=== PATIENT | female | born 1930 | race Caucasian/White ===

== ENCOUNTER 2016-04-01 20:04 | Observation (INO) | payer MEDICARE, BC ==
[2016-04-01 20:28] LABS: Hematocrit 37 % (35-47); Hemoglobin 12.5 g/dl (12.0-16.0); Mean Corpuscular HGB Conc 34 g/dl (31-36); Mean Corpuscular Hemoglobin 32 pg (27-31); Mean Corpuscular Volume 94 fL (80-97); Mean Platelet Volume 8 um3 (7.4-10.4); Red Blood Count 3.95 10^6/ul (4.0-5.4); Red Cell Distribution Width 14 % (10.5-15); White Blood Count 7.6 10^3/ul (3.5-10.8)
--- NOTE | 2016-04-01 20:39 | RAD ---
INDICATION: Neurologic change. Code aldridge. COMPARISON: CT brain December 22, 2014 TECHNIQUE: Noncontrast axial source images were acquired from the skull base to the vertex. FINDINGS: Ventricles/sulci: The ventricles and cisterns are normal in size and configuration for age. Brain parenchyma: There is mild periventricular and subcortical white matter change compatible with chronic ischemia. Intracranial hemorrhage:None. Extra-axial spaces: There are no abnormal extra axial fluid collections. There is a calcified extra-axial mass in left frontoparietal region most consistent with a calcified meningioma appearing unchanged. Calvarium: There is no calvarial fracture or other calvarial abnormality. Scalp: There is no evidence of scalp or extracalvarial soft tissue abnormality. Paranasal sinuses/mastoid: The paranasal sinuses and mastoid air cells are clear. Other: None. IMPRESSION: No acute intracranial findings. Minor chronic marked thoracic ischemic change.. Incidental, calcified, left frontoparietal meningioma, unchanged. Findings called to ED at 2031 hours.
[2016-04-01 20:43] LABS: BUN/Creatinine Ratio 19.4 (8-20); Calcium 9.7 mg/dL (8.6-10.3); EGFR African American 50.8 (>60); EGFR Non-African American 39.5 (>60); Globulin 3.2 g/dL (2-4); Potassium 5.1 mmol/L (3.5-5.0); Total Bilirubin 0.3 mg/dL (0.2-1.0); Total Protein 7.2 g/dL (6.4-8.9)
[2016-04-01 20:44] LABS: Troponin I 0.03 ng/mL (<0.04)
--- NOTE | 2016-04-01 21:04 | RAD ---
INDICATION: CVA COMPARISON: None TECHNIQUE: An AP portable view obtained at 2045 hours is submitted. FINDINGS: Bones/Soft Tissues: There are no acute bony findings. Cardiomediastinal: The cardiomediastinal silhouette is normal. Lungs: There are no acute infiltrates. There is mild hyperinflation with chronic appearing interstitial change. Pleura: There are no pleural effusions. Other: None IMPRESSION: NO ACTIVE DISEASE.
--- NOTE | 2016-04-01 21:05 | ED ---
Brendon Wang Michael, scribed for Barrba Tao MD on 04/01/16 at 2028 . Neurological HPI - HPI Summary HPI Summary: 85 y/o female comes to the ED presenting with mild aphasia that started suddenly at 1900. The pt had trouble remembering names of family members per son. He asked her the names of her grandchildren and friends. The pt responded to each question after approximately one minute. 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 The pt denies VERGARA, neck pain, and SOB. The PMHx is significant for HTN. Mable Paula was called at 20:17. Ct neg pt improving Robert aware discussed case aphasia not noticeable. Kiana aware - History of Current Complaint Chief Complaint: EDNeurologicalDeficit Stated Complaint: POSS STROKE Time Seen by Provider: 04/01/16 20:18 Hx Obtained From: Patient, Family/Equity Research Analyst, Medical Records Onset/Duration: Sudden Onset, Started hours ago Timing: Constant Onset Severity: Mild Current Severity: Mild Pain Intensity: 0 Pain Scale Used: 0-10 Numeric Character: Confusion Syncope Context: Loss of Consciousness: No Aggravating: Nothing Alleviating: Nothing Associated Signs and Symptoms: Positive: Negative - SOB, Confusion. 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, Other Cardiovascular Problems/Disorders - HX TACHYCARDIA Respiratory History: Denies: Hx Asthma, Hx Chronic Obstructive Pulmonary Disease (COPD) GI History: Reports: Hx Irritable Bowel - POSSIBLE Denies: Hx Ulcer Musculoskeletal History: Reports: Hx Arthritis - HANDS Sensory History: Reports: Hx Cataracts - ARABELLA, Hx Contacts or Glasses - GLASSES, Hx Hearing Aid - LEFT EAR Opthamlomology History: Reports: Hx Cataracts - ARABELLA, Hx Contacts or Glasses - GLASSES - Cancer History Cancer Type, 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, [facility]. left EARS, stapectomy, [facility]. right ear, 1984, [facility]. 1985, right ear revision, [facility] Hx Anesthesia Reactions: No Infectious Disease History: No Infectious Disease History: Denies: Hx Clostridium Difficile, Hx Hepatitis, Hx Human Immunodeficiency Virus (HIV), Hx of Known/Suspected MRSA, Hx Shingles, Hx Tuberculosis, Hx Known/ Suspected VRE, Hx Known/Suspected VRSA, History Other Infectious Disease, Traveled Outside the in Last 30 Days - Family History Known Family History: Negative: Cardiac Disease, Hypertension, Diabetes - Social History Occupation: Retired Lives: With Family Alcohol Use: None Alcohol Amount: 1 per day Substance Use Type: Reports: None Smoking Status (MU): Never Smoked Tobacco Have You Smoked in the Last Year: No Review of Systems Negative: Fever Negative: Shortness Of Breath Positive: Other - no neck pain Neurological: Other - aphasia Negative: Headache All Other Systems Reviewed And Are Negative: Yes Physical Exam Triage Information Reviewed: Yes Vital Signs On Initial Exam: Initial Vitals Temp Pulse Resp BP Pulse Ox 97.7 F 62 12 186/70 98 04/01/16 20:13 04/01/16 20:13 04/01/16 20:13 04/01/16 20:13 04/01/16 20:13 Vital Signs Reviewed: Yes Appearance: Positive: Well-Appearing, No Pain Distress Skin: Positive: Warm, Skin Color Reflects Adequate Perfusion, Dry Eyes: Positive: EOMI, ANGELITA ENT: Positive: Pharynx normal, TMs normal Neck: Positive: Supple, Nontender Respiratory/Lung Sounds: Positive: Clear to Auscultation, Breath Sounds Present. Negative: Rales, Rhonchi, Wheezes Cardiovascular: Positive: RRR, Other - no gallops.. Negative: Murmur, Rub Abdomen Description: Positive: Nontender, Soft, Other: - no rebound. Negative: Distended, Guarding Bowel Sounds: Positive: Present Musculoskeletal: Positive: Strength/ROM Intact, Other - peripheral edema 2+ Neurological: Positive: Sensory/Motor Intact, Alert, Oriented to Person Place, Time, CN Intact II-III Psychiatric: Positive: Affect/Mood Appropriate Diagnostics - Vital Signs Vital Signs Temp Pulse Resp BP Pulse Ox 04/01/16 20:13 97.7 F 62 12 186/70 98 - Laboratory Lab Results: Lab Results 04/01/16 04/01/16 04/01/16 Range/Units 20:19 20:19 20:19 WBC 7.6 (3.5-10.8) 10^3/ul RBC 3.95 L (4.0-5.4) 10^6/ul Hgb 12.5 (12.0-16.0) g/dl Hct 37 (35-47) % MCV 94 (80-97) fL MCH 32 H (27-31) pg MCHC 34 (31-36) g/dl RDW 14 (10.5-15) % Plt Count 228 (150-450) 10^3/ul MPV 8 (7.4-10.4) um3 Neut % (Auto) 71.8 (38-83) % Lymph % (Auto) 16.7 L (25-47) % [place] % (Auto) 7.8 (1-9) % Eos % (Auto) 2.6 (0-6) % Baso % (Auto) 1.1 (0-2) % Absolute Neuts (auto) 5.4 (1.5-7.7) 10^3/ul Absolute Lymphs (auto) 1.3 (1.0-4.8) 10^3/ul Absolute Monos (auto) 0.6 (0-0.8) 10^3/ul Absolute Eos (auto) 0.2 (0-0.6) 10^3/ul Absolute Basos (auto) 0.1 (0-0.2) 10^3/ul Absolute Nucleated RBC 0 10^3/ul Nucleated RBC % 0 INR (Anticoag Therapy) 0.91 (0.89-1.11) APTT 31.5 (26.0-36.3) seconds Sodium 124 L (133-145) mmol/L Potassium 5.1 H (3.5-5.0) mmol/L Chloride 92 L (101-111) mmol/L Carbon Dioxide 26 (22-32) mmol/L Anion Gap 6 (2-11) mmol/L BUN 25 H (6-24) mg/dL Creatinine 1.29 H (0.51-0.95) mg/dL Est GFR ( Amer) 50.8 (>60) Est GFR (Non-Af Amer) 39.5 (>60) BUN/Creatinine Ratio 19.4 (8-20) Glucose 122 H (70-100) mg/dL Lactic Acid (0.5-2.0) mmol/L Calcium 9.7 (8.6-10.3) mg/dL Total Bilirubin 0.30 (0.2-1.0) mg/dL AST 36 (13-39) U/L ALT 26 (7-52) U/L Alkaline Phosphatase 93 (34-104) U/L Troponin I 0.03 (<0.04) ng/mL Total Protein 7.2 (6.4-8.9) g/dL Albumin 4.0 (3.2-5.2) g/dL Globulin 3.2 (2-4) g/dL Albumin/Globulin Ratio 1.3 (1-3) Triglycerides 150 mg/dL Cholesterol 199 mg/dL LDL Cholesterol 109 mg/dL HDL Cholesterol 60.0 mg/dL Blood Type Antibody Screen 04/01/16 04/01/16 Range/Units 20:19 20:19 WBC (3.5-10.8) 10^3/ul RBC (4.0-5.4) 10^6/ul Hgb (12.0-16.0) g/dl Hct (35-47) % MCV (80-97) fL MCH (27-31) pg MCHC (31-36) g/dl RDW (10.5-15) % Plt Count (150-450) 10^3/ul MPV (7.4-10.4) um3 Neut % (Auto) (38-83) % Lymph % (Auto) (25-47) % [place] % (Auto) (1-9) % Eos % (Auto) (0-6) % Baso % (Auto) (0-2) % Absolute Neuts (auto) (1.5-7.7) 10^3/ul Absolute Lymphs (auto) (1.0-4.8) 10^3/ul Absolute Monos (auto) (0-0.8) 10^3/ul Absolute Eos (auto) (0-0.6) 10^3/ul Absolute Basos (auto) (0-0.2) 10^3/ul Absolute Nucleated RBC 10^3/ul Nucleated RBC % INR (Anticoag Therapy) (0.89-1.11) APTT (26.0-36.3) seconds Sodium (133-145) mmol/L Potassium (3.5-5.0) mmol/L Chloride (101-111) mmol/L Carbon Dioxide (22-32) mmol/L Anion Gap (2-11) mmol/L BUN (6-24) mg/dL Creatinine (0.51-0.95) mg/dL Est GFR ( Amer) (>60) Est GFR (Non-Af Amer) (>60) BUN/Creatinine Ratio (8-20) Glucose (70-100) mg/dL Lactic Acid 1.2 (0.5-2.0) mmol/L Calcium (8.6-10.3) mg/dL Total Bilirubin (0.2-1.0) mg/dL AST (13-39) U/L ALT (7-52) U/L Alkaline Phosphatase (34-104) U/L Troponin I (<0.04) ng/mL Total Protein (6.4-8.9) g/dL Albumin (3.2-5.2) g/dL Globulin (2-4) g/dL Albumin/Globulin Ratio (1-3) Triglycerides mg/dL Cholesterol mg/dL LDL Cholesterol mg/dL HDL Cholesterol mg/dL Blood Type Pending Antibody Screen Pending Result Diagrams: 04/01/16 20:19 04/01/16 20:19 Lab Statement: Any lab studies that have been ordered have been reviewed, and results considered in the medical decision making process. - CT Brain CT CT Interpretation: Positive (See Comments) - No acute intracranial findings. Minor chronic marked thoracic ischemic change.. Incidental, calcified, left frontoparietal meningioma, unchanged. CT Interpretation Completed By: Radiologist - EKG EK EKG Rhythm: Sinus Rhythm ST Segment: Normal Ectopy: None NIH Scale - NIH Scale Level of Consciousness: Alert/Keenly Responsive Ask Patient the Month and His/Her Age: Both Correct Ask Pt to Open/Close Eyes and Molder Shoulder Pad/Release Non-Paretic Hand: Both Correctly Best Gaze (Only Horizontal Eye Movement): Normal Visual Field Testing: No Visual Loss Facial Paresis-Pt to Smile & Close Eyes or Grimace Symmetry: Normal/Symmetrical Motor Function - Right Arm: No Drift-Holds 10 Seconds Motor Function - Left Arm: No Drift-Holds 10 Seconds Motor Function - Right Leg: No Drift-Holds 10 Seconds Motor Function - Left Leg: No Drift-Holds 10 Seconds Limb Ataxia-Must be out of Proportion to Weakness Present: Absent Sensory (Use Pinprick to Test Arms/Legs/Trunk/Face): Normal Best Language (Describe Picture, Name Items): No Aphasia Dysarthria (Read Several Words): Normal Extinction and Inattention: No Abnormality Total Score: 0 Re-Evaluation - Re-Evaluation 1st Re-Evaluation Time: 20:59 Change: Unchanged Comment: dicussed with family that the pt will be admitted to the hospital for a mild stroke. Course/Dx - Diagnoses Provider Diagnoses: Expressive aphasia During the Visit The Following Alert/Code Occurred: Code Fan Discharge - Discharge Plan Condition: Stable Disposition: ADMITTED TO [facility] The documentation as recorded by the Brendon alexander Michael accurately reflects the service I personally performed and the decisions made by me, Barbra Tao MD.
[2016-04-01] MEDS ORDERED: Aspirin Low Dose CHEW TAB* 81 MG PO ONE (21:21)
[2016-04-01] MEDS ORDERED: Ondansetron INJ* 2 MG/ML VIAL IV PRN (22:53)
[2016-04-01] MEDS ORDERED: Acetaminophen TAB* 325 MG PO PRN (22:53)
[2016-04-01] MEDS ORDERED: traMADol TAB* 50 MG PO PRN (22:53)
[2016-04-01] MEDS ORDERED: Melatonin (NF) 3 MG TAB PO PRN (22:53)
[2016-04-01] MEDS ORDERED: NS 0.9% 1000 ML* 1,000 ML IV SCH (23:00)
[2016-04-01] MEDS ORDERED: Iodixanol* (CONTRAST) 320 MG/ML 100 ML SDV IV ONE (23:06)
--- NOTE | 2016-04-02 00:35 | CONS ---
CC: Dr. Tyrel Sosa NEUROLOGY CONSULT REPORT: DATE OF CONSULT: 04/01/16 PRIMARY CARE PHYSICIAN: Dr. Tyrel Sosa. REQUESTING PHYSICIANS: Dr. Bruno REASON FOR CONSULT: Possible TIA. HISTORY OF PRESENT ILLNESS: The patient is an 85-year-old right-handed female, who was in her usual state of health until about around 7 p.m. tonight getting ready to start dinner when her son noticed that she had some difficulty talking such as referring to her grandson as "the person who lives with you". She also was not able to tell the name of her immediately and took her about a minute to say that and also the middle name of her son when she was asked. She also was saying things that did not make complete sense per the son. The son then called one of his friends, who is a electrician sound, and eventually he was told that it would be best to bring her to the hospital. Before this episodes she was fine, helping preparing dinner with her son. The patient does not recognize that she had a problem, but says probably she recalls that she was not able to find some words. Otherwise, she did not have any diplopia or weakness or numbness in the arms and legs. She gradually improved. I was called about this patient around 9 p.m. and by the time I was at the bedside, it was about 9:20. PAST MEDICAL HISTORY: Diverticulosis; tachycardia (of unknown nature, probably on digoxin. Per her son, she had 24 hours monitoring in the past and had been considered for a Holter monitoring.). PAST SURGICAL HISTORY: Cataract surgery, Inguinal hernia repair in 1979. Gastrectomy, double diverticulum resected with pyloroplasty in 1968. HOME MEDICATIONS: Include: 1. Acidophilus probiotic. 2. [place] 3-6-9. 3. Multivitamin. 4. Laxatives. 5. Melatonin 3 mg at bedtime. 6. Meclizine 12.5 mg p.o. p.r.n. 7. Glucosamine. 8. Calcium. 9. Atenolol 50 mg in the morning and 25 mg at night. 10. Vitamin C. 11. She probably is also on Digoxin, but no clear information is available. ALLERGIES: To CODEINE, DOXYCYCLINE, EPINEPHRINE. FAMILY HISTORY: Brother had history of lung cancer and he was a smoker. Father had renal cell carcinoma. SOCIAL HISTORY: The patient never smoked. 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 She lives by herself. REVIEW OF SYSTEMS: Complete review of systems was performed and other than what mentioned above is negative. PHYSICAL EXAM: Temperature 97.7, pulse rate 62, respiratory rate 12, blood pressure 186/70. The patient is awake, alert, and oriented x3. Speech is fluent with no dysarthria. Naming is intact. Pupils are symmetric and reactive to light. Extraocular movements are intact. Visual pack are intact by confrontation. V1 to V3 is intact to light touch and pinprick. Right upper and right lower extremities have slightly decreased sensation to pinprick, but not to light touch. Motor strength is 5/5. There is no pronator drift. Finger -to-nose is intact bilaterally. Deep tendon reflexes are 2+ in the upper and lower extremities except Achilles, which are 1+ bilaterally and are symmetric. Babinski is absent bilaterally. NIHSS is 1 for mild sensory deficit in the right. DIAGNOSTIC STUDIES/LAB DATA: WBC 7.6, hemoglobin 12.5, hematocrit 37, platelets 228. INR 0.91. Sodium 124, potassium 5.1, chloride 92, BUN 25, creatinine 1.29. Imaging: Brain CT: No acute intracranial findings. There is an incidental left frontoparietal meningioma, unchanged. ASSESSMENT AND PLAN: An 85-year-old female with sudden onset of what seems to be mild aphasia, which has improved, currently has only right-sided decreased sensation. NIH Stroke Scale at this time is only 1. She is not a candidate for thrombolytic therapy due to low NIH Stroke Scale. She needs a stroke workup including admission for telemonitoring, MRI of the brain to see if there is any small stroke present, CT angiogram of the head and neck and echocardiogram of the heart. Continue on aspirin and statins. [id number]/[facility] #: [id number] [facility] HOSPITALKenia
[2016-04-02 00:40] LABS: Urine Bilirubin Negative (Negative); Urine Glucose Negative (Negative); Urine Nitrite Negative (Negative)
--- NOTE | 2016-04-02 01:57 | HP ---
H&P (Free Text) History and Physical: PCP: Barbara Sosa MD Date/Time of Evaluation: 04/01/2016 2245 CC: difficulty finding words HPI: Mrs Carroll is an 87YO female HX HTN who was eating supper with her son and grandson around 1900 when suddenly they noticed she wasn't making as much sense. Her son began questioning her and found she was unable to state his name or that of other family members they had talked of earlier in the day. There was no note of facial asymmetry, focal W/N/T, or other issues. He talked her into coming for evaluation. CT brain WO is negative. Zuly Jones MD neurology has evaluated and agrees with the diagnosis of CVA although as her speech has normalized and the only deficit is some mild decreased sensation on the R she is not a tPA candidate. Will observe for CVA evaluation. PMedHx HTN palpitations Allergies Codeine Adverse Reaction (Mild, Verified 04/01/16 22:54) Nausea Doxycycline Adverse Reaction (Mild, Verified 04/01/16 22:54) Nausea Epinephrine Adverse Reaction (Mild, Verified 04/01/16 22:54) Palpitations Ambulatory Orders Patient/son uncertain of medications, will need reconciling in AM via Rx ([facility]). PSurgHx OU cataract extractions gastric diverticulum surgery AU stapectomy & prostheses L inguinal hernia repair SocHx: no tobacco, alcohol, or recreational drugs; lives alone; DNR/I code status FamHx: Father passed of renal cell CA. Mother passed of CHF. ROS: as above, otherwise reviewed and all were negative Constitutional: NAD, normally developed, well-nourished elderly white female vitals: Vital Signs Temp 36.5 C 04/01/16 20:13 Pulse 58 04/02/16 00:20 Resp 10 04/02/16 00:20 BP 171/58 04/02/16 00:20 Pulse Ox 97 04/02/16 00:20 Intake & Output 04/01/16 04/01/16 04/02/16 11:59 23:59 11:59 Weight 52.163 kg HEENM: atraumatic; sclera/conjunctiva: non-icteric/clear; hearing: mildly decreased; oropharynx: clear, mucosa moist Neck: soft tissue: non-tender; thyroid: normal Pulmonary: clear to auscultation bilaterally, good aeration, no accessory muscle use CV: RR/RR, normal S1S2, no carotid bruit, no jugular venous distention, 2+ B DP/ PT, no edema Abdominal: soft, non-distended, non-tender, no rebound/guarding/rigidity, normoactive bowel sounds, no hepatosplenomegaly or masses, no costovertebral angle tenderness Musculoskeletal: general: grossly intact; gait: stable Integumental: normal appearance and texture of exposed skin; 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 L rico is clean & dry Neurological deferred to neurology Psychiatric orientation: AA&O to PPS affect: calm mood: pleasant eye contact: good content: reliable memory: absent regarding event responses: timely insight: fair Testing: Lab Results 04/01/16 04/01/16 04/01/16 Range/Units 20:19 20:19 20:19 WBC 7.6 (3.5-10.8) 10^3/ul RBC 3.95 L (4.0-5.4) 10^6/ul Hgb 12.5 (12.0-16.0) g/dl Hct 37 (35-47) % MCV 94 (80-97) fL MCH 32 H (27-31) pg MCHC 34 (31-36) g/dl RDW 14 (10.5-15) % Plt Count 228 (150-450) 10^3/ul MPV 8 (7.4-10.4) um3 Neut % (Auto) 71.8 (38-83) % Lymph % (Auto) 16.7 L (25-47) % [place] % (Auto) 7.8 (1-9) % Eos % (Auto) 2.6 (0-6) % Baso % (Auto) 1.1 (0-2) % Absolute Neuts (auto) 5.4 (1.5-7.7) 10^3/ul Absolute Lymphs (auto) 1.3 (1.0-4.8) 10^3/ul Absolute Monos (auto) 0.6 (0-0.8) 10^3/ul Absolute Eos (auto) 0.2 (0-0.6) 10^3/ul Absolute Basos (auto) 0.1 (0-0.2) 10^3/ul Absolute Nucleated RBC 0 10^3/ul Nucleated RBC % 0 INR (Anticoag Therapy) 0.91 (0.89-1.11) APTT 31.5 (26.0-36.3) seconds Sodium 124 L (133-145) mmol/L Potassium 5.1 H (3.5-5.0) mmol/L Chloride 92 L (101-111) mmol/L Carbon Dioxide 26 (22-32) mmol/L Anion Gap 6 (2-11) mmol/L BUN 25 H (6-24) mg/dL Creatinine 1.29 H (0.51-0.95) mg/dL Est GFR ( Amer) 50.8 (>60) Est GFR (Non-Af Amer) 39.5 (>60) BUN/Creatinine Ratio 19.4 (8-20) Glucose 122 H (70-100) mg/dL Lactic Acid (0.5-2.0) mmol/L Calcium 9.7 (8.6-10.3) mg/dL Total Bilirubin 0.30 (0.2-1.0) mg/dL AST 36 (13-39) U/L ALT 26 (7-52) U/L Alkaline Phosphatase 93 (34-104) U/L Troponin I 0.03 (<0.04) ng/mL Total Protein 7.2 (6.4-8.9) g/dL Albumin 4.0 (3.2-5.2) g/dL Globulin 3.2 (2-4) g/dL Albumin/Globulin Ratio 1.3 (1-3) Triglycerides 150 mg/dL Cholesterol 199 mg/dL LDL Cholesterol 109 mg/dL HDL Cholesterol 60.0 mg/dL Urine Color Urine Appearance Urine pH (5-9) Ur Specific [place] (1.010-1.030) Urine Protein (Negative) Urine Ketones (Negative) Urine Blood (Negative) Urine Nitrate (Negative) Urine Bilirubin (Negative) Urine Urobilinogen (Negative) Ur Leukocyte Esterase (Negative) Urine Glucose (Negative) Urine Ascorbic Acid (Negative) Blood Type Antibody Screen 04/01/16 04/01/16 04/02/16 Range/Units 20:19 20:19 00:29 WBC (3.5-10.8) 10^3/ul RBC (4.0-5.4) 10^6/ul Hgb (12.0-16.0) g/dl Hct (35-47) % MCV (80-97) fL MCH (27-31) pg MCHC (31-36) g/dl RDW (10.5-15) % Plt Count (150-450) 10^3/ul MPV (7.4-10.4) um3 Neut % (Auto) (38-83) % Lymph % (Auto) (25-47) % [place] % (Auto) (1-9) % Eos % (Auto) (0-6) % Baso % (Auto) (0-2) % Absolute Neuts (auto) (1.5-7.7) 10^3/ul Absolute Lymphs (auto) (1.0-4.8) 10^3/ul Absolute Monos (auto) (0-0.8) 10^3/ul Absolute Eos (auto) (0-0.6) 10^3/ul Absolute Basos (auto) (0-0.2) 10^3/ul Absolute Nucleated RBC 10^3/ul Nucleated RBC % INR (Anticoag Therapy) (0.89-1.11) APTT (26.0-36.3) seconds Sodium (133-145) mmol/L Potassium (3.5-5.0) mmol/L Chloride (101-111) mmol/L Carbon Dioxide (22-32) mmol/L Anion Gap (2-11) mmol/L BUN (6-24) mg/dL Creatinine (0.51-0.95) mg/dL Est GFR ( Amer) (>60) Est GFR (Non-Af Amer) (>60) BUN/Creatinine Ratio (8-20) Glucose (70-100) mg/dL Lactic Acid 1.2 (0.5-2.0) mmol/L Calcium (8.6-10.3) mg/dL Total Bilirubin (0.2-1.0) mg/dL AST (13-39) U/L ALT (7-52) U/L Alkaline Phosphatase (34-104) U/L Troponin I (<0.04) ng/mL Total Protein (6.4-8.9) g/dL Albumin (3.2-5.2) g/dL Globulin (2-4) g/dL Albumin/Globulin Ratio (1-3) Triglycerides mg/dL Cholesterol mg/dL LDL Cholesterol mg/dL HDL Cholesterol mg/dL Urine Color Straw Urine Appearance Clear Urine pH 7.0 (5-9) Ur Specific [place] 1.014 (1.010-1.030) Urine Protein Negative (Negative) Urine Ketones Negative (Negative) Urine Blood Negative (Negative) Urine Nitrate Negative (Negative) Urine Bilirubin Negative (Negative) Urine Urobilinogen Negative (Negative) Ur Leukocyte Esterase Negative (Negative) Urine Glucose Negative (Negative) Urine Ascorbic Acid * H (Negative) Blood Type A Negative Antibody Screen Negative ECG, personally reviewed: NSR rate 61, no ischemia CXR, personally reviewed: IMPRESSION: NO ACTIVE DISEASE. CT brain WO, personally reviewed: IMPRESSION: No acute intracranial findings. Minor chronic marked thoracic ischemic change. Incidental, calcified, left frontoparietal meningioma, unchanged. Impression: 85F presenting with symptoms consistent with a L cortical CVA/TIA DIAGNOSIS & PLAN Primary L cortical CVA/TIA : Zuly Jones MD neurology's consult appreciated, will follow : CTA head/neck tonight : MRI brain WO in AM (discussed with Dr Givens, radiology, who approved) : aspirin : neurochecks : supplemental oxygen : lipid profile completed : PT/OT evaluations : supportive care Secondary HTN : review medications once reconciled Admission Rational: CDU observation for CVA work up DVTp: heparin SQ Code Status: DNR/I, no pressors HCP: children
[2016-04-02] MEDS: Heparin VIAL(*) 5000 UNITS/ML VIAL (FIVE THOUSAND) SUBCUT SCH ×2 (05:52→15:22)
[2016-04-02] MEDS ORDERED: Omeprazole CAP* 20 MG PO SCH (06:00)
--- NOTE | 2016-04-02 06:19 | RAD ---
INDICATION: 85-year-old with TIA/CVA workup COMPARISON: CT brain same date TECHNIQUE: Axial source images were acquired with coronal and sagittal reconstructions. CT angiographic technique was utilized with injection of 80 mL Visipaque 320. FINDINGS: Aortic arch: There are no significant CT angiogram abnormalities of the arch or the great vessels arising from the arch. Right carotid: The internal carotid artery, carotid bifurcation, extracranial portions of the internal carotid artery, carotid artery at the skull base, carotid siphon, and carotid termination are widely patent. Left carotid:The internal carotid artery, carotid bifurcation, extracranial portions of the internal carotid artery, carotid artery at the skull base, carotid siphon, and carotid termination are widely patent. Right middle and anterior cerebral arteries: There are no significant CT angiographic abnormalities of the middle or anterior cerebral arteries. Left middle and anterior cerebral arteries: There are no CT significant angiographic abnormalities of the middle or anterior cerebral arteries Right vertebral: The CT angiographic appearance of the vertebral artery is normal. Left vertebral: The CT angiographic appearance of the vertebral artery is normal. Basilar artery: The basilar artery and basilar tip appear patent. Posterior cerebral arteries: The distal distribution of the right and left posterior cerebral arteries is normal. [place]: The CT angiographic appearance of the [place] is normal. Source images show no evidence of worrisome mass or adenopathy within the neck. The right thyroid lobe is mildly enlarged and appears heterogeneous similar to earlier CT imaging. There are no focal parenchymal abnormalities or abnormal areas of enhancement. IMPRESSION: NO CT EVIDENCE OF ANEURYSM, SIGNIFICANT STENOSIS, OR BRANCH OCCLUSION. CPT II Codes: 3100F PQRS
[2016-04-02 08:09] LABS: Calcium 9.4 mg/dL (8.6-10.3); EGFR African American 64.4 (>60); EGFR Non-African American 50.1 (>60); Potassium 4.5 mmol/L (3.5-5.0)
[2016-04-02] MEDS ORDERED: Aspirin EC Low Dose* 81 MG TAB.EC PO SCH (09:00)
[2016-04-02] MEDS ORDERED: Docusate CAP* 100 MG PO SCH (09:00)
--- NOTE | 2016-04-02 11:44 | RAD ---
INDICATION: TIA workup in a 85-year-old. COMPARISON: CT brain April 01, 2016 several: CTA head and neck April 01, 2016 TECHNIQUE: sagittal T1 FLAIR, axial diffusion, axial T1 FLAIR, axial T2, axial T2 FLAIR, and SWI images were acquired. FINDINGS: Craniocervical junction: The craniocervical junction appears normal. Ventricles/sulci: There is cortical atrophy with compensatory dilatation of the CSF spaces. Brain parenchyma: There are extensive, bilateral T2-weighted hyperintensities in the periventricular and subcortical white matter consistent with chronic microvascular ischemia. There is also mild increased signal in the midbrain consistent with microvascular ischemia. Intracranial hemorrhage: There is no intracranial hemorrhage. Extra-axial spaces: Small (9 mm), calcified left frontal meningioma without associated mass effect. There are no other extra-axial fluid collections or masses. Orbits: There are no MR abnormalities of the orbital structures. Paranasal sinuses/mastoid: The paranasal sinuses are clear. The mastoid air cells are well aerated.. Vascular: No abnormalities are seen. Other: None IMPRESSION: CORTICAL INVOLUTIONAL CHANGES WITH EXTENSIVE PERIVENTRICULAR AND SUBCORTICAL WHITE MATTER T2-WEIGHTED HYPERINTENSITIES COMPATIBLE WITH CHRONIC MICROVASCULAR ISCHEMIA.
--- NOTE | 2016-04-02 12:45 | PN ---
Progress Note - Progress Note SOAP: Neurology progress note Date of service: 04/02/16 Subjective: The patient had no acute events overnight. Feels good this morning. She is not having any new symptoms. MRI brain completed. Objective: Vital Signs Temp Pulse Resp BP Pulse Ox 97.4 F 53 16 128/54 100 04/02/16 11:39 04/02/16 11:39 04/02/16 11:47 04/02/16 11:47 04/02/16 11:39 Laboratory Results - last 24 hr 04/01/16 04/01/16 04/01/16 20:19 20:19 20:19 WBC 7.6 RBC 3.95 L Hgb 12.5 Hct 37 MCV 94 MCH 32 H MCHC 34 RDW 14 Plt Count 228 MPV 8 Neut % (Auto) 71.8 Lymph % (Auto) 16.7 L [place] % (Auto) 7.8 Eos % (Auto) 2.6 Baso % (Auto) 1.1 Absolute Neuts (auto) 5.4 Absolute Lymphs (auto) 1.3 Absolute Monos (auto) 0.6 Absolute Eos (auto) 0.2 Absolute Basos (auto) 0.1 Absolute Nucleated RBC 0 Nucleated RBC % 0 INR (Anticoag Therapy) 0.91 APTT 31.5 Sodium 124 L Potassium 5.1 H Chloride 92 L Carbon Dioxide 26 Anion Gap 6 BUN 25 H Creatinine 1.29 H Est GFR ( Amer) 50.8 Est GFR (Non-Af Amer) 39.5 BUN/Creatinine Ratio 19.4 Glucose 122 H Lactic Acid Calcium 9.7 Total Bilirubin 0.30 AST 36 ALT 26 Alkaline Phosphatase 93 Troponin I 0.03 Total Protein 7.2 Albumin 4.0 Globulin 3.2 Albumin/Globulin Ratio 1.3 Triglycerides 150 Cholesterol 199 LDL Cholesterol 109 HDL Cholesterol 60.0 Urine Color Urine Appearance Urine pH Ur Specific [place] Urine Protein Urine Ketones Urine Blood Urine Nitrate Urine Bilirubin Urine Urobilinogen Ur Leukocyte Esterase Urine Glucose Urine Ascorbic Acid Blood Type Antibody Screen 04/01/16 04/01/16 04/02/16 20:19 20:19 00:29 WBC RBC Hgb Hct MCV MCH MCHC RDW Plt Count MPV Neut % (Auto) Lymph % (Auto) [place] % (Auto) Eos % (Auto) Baso % (Auto) Absolute Neuts (auto) Absolute Lymphs (auto) Absolute Monos (auto) Absolute Eos (auto) Absolute Basos (auto) Absolute Nucleated RBC Nucleated RBC % INR (Anticoag Therapy) APTT Sodium Potassium Chloride Carbon Dioxide Anion Gap BUN Creatinine Est GFR ( Amer) Est GFR (Non-Af Amer) BUN/Creatinine Ratio Glucose Lactic Acid 1.2 Calcium Total Bilirubin AST ALT Alkaline Phosphatase Troponin I Total Protein Albumin Globulin Albumin/Globulin Ratio Triglycerides Cholesterol LDL Cholesterol HDL Cholesterol Urine Color Straw Urine Appearance Clear Urine pH 7.0 Ur Specific [place] 1.014 Urine Protein Negative Urine Ketones Negative Urine Blood Negative Urine Nitrate Negative Urine Bilirubin Negative Urine Urobilinogen Negative Ur Leukocyte Esterase Negative Urine Glucose Negative Urine Ascorbic Acid * H Blood Type A Negative Antibody Screen Negative 04/02/16 06:06 WBC RBC Hgb Hct MCV MCH MCHC RDW Plt Count MPV Neut % (Auto) Lymph % (Auto) [place] % (Auto) Eos % (Auto) Baso % (Auto) Absolute Neuts (auto) Absolute Lymphs (auto) Absolute Monos (auto) Absolute Eos (auto) Absolute Basos (auto) Absolute Nucleated RBC Nucleated RBC % INR (Anticoag Therapy) APTT Sodium 129 L Potassium 4.5 Chloride 97 L Carbon Dioxide 25 Anion Gap 7 BUN 22 Creatinine 1.05 H Est GFR ( Amer) 64.4 Est GFR (Non-Af Amer) 50.1 BUN/Creatinine Ratio 21.0 H Glucose 94 Lactic Acid Calcium 9.4 Total Bilirubin AST ALT Alkaline Phosphatase Troponin I Total Protein Albumin Globulin Albumin/Globulin Ratio Triglycerides Cholesterol LDL Cholesterol HDL Cholesterol Urine Color Urine Appearance Urine pH Ur Specific [place] Urine Protein Urine Ketones Urine Blood Urine Nitrate Urine Bilirubin Urine Urobilinogen Ur Leukocyte Esterase Urine Glucose Urine Ascorbic Acid Blood Type Antibody Screen Current Medications Acetaminophen (Tylenol Tab*) 650 mg PO Q6H PRN PRN Reason: FEVER/PAIN Aspirin (Aspirin Ec Low Dose*) 81 mg PO DAILY [facility] Last Admin: 04/02/16 09:41 Dose: 81 mg Docusate Sodium (Colace Cap*) 200 mg PO BID [facility] Last Admin: 04/02/16 09:41 Dose: 200 mg Heparin Sodium (Porcine) (Heparin Vial(*)) 5,000 units SUBCUT Q8HR [facility] Last Admin: 04/02/16 05:52 Dose: 5,000 units Sodium Chloride (Ns 0.9% 1000 Ml*) 1,000 mls @ 75 mls/hr IV PER RATE [facility] Last Admin: 04/02/16 10:35 Dose: 75 mls/hr Melatonin (Melatonin (Nf)) 3 mg PO BEDTIME PRN; Protocol PRN Reason: Sleep Omeprazole (Prilosec Cap*) 20 mg PO DAILY@0600 [facility] Last Admin: 04/02/16 05:51 Dose: 20 mg Ondansetron HCl (Zofran Inj*) 4 mg IV Q6H PRN PRN Reason: NAUSEA Tramadol HCl (Ultram*) 50 mg PO Q12H PRN PRN Reason: PAIN On neurological exam, the patient is awake, alert and oriented x 3. Pupils symmetric and reactive to light. Face symmetric. Tongue in midline. V1-3 intact to light touch and pinprick. Strength 5/5. Sensation intact to light touch and pinprick in the upper and lower extremities, bilaterally (improvement compared to last night). MRI brain: CORTICAL INVOLUTIONAL CHANGES WITH EXTENSIVE PERIVENTRICULAR AND SUBCORTICAL WHITE MATTER T2-WEIGHTED HYPERINTENSITIES COMPATIBLE WITH CHRONIC MICROVASCULAR ISCHEMIA. CTA head and neck: NO CT EVIDENCE OF ANEURYSM, SIGNIFICANT STENOSIS, OR BRANCH OCCLUSION. Assessment and Plan: 85 year-old female with sudden onset of mild aphasia and right sided numbness ( on exam), was admitted for TIA workup. The symptoms have resolved now including the numbness of the right side. NIHSS is 0 at this time. MRI is negative for acute stroke. Echo pending. Continue antiplatelets. Would increase the dose to 325 mg daily. If TTE is negative, needs following up with her security services manager for possible Holter monitoring.
--- NOTE | 2016-04-02 14:59 | ECHO ---
Patient: ALONZO BROWN Rec#: [id number] : 1930 Date: 04/02/2016 Age: 85y Height: 157.5 cm / 62.0 in Weight: 52.2 kg / 115.0 lbs Sex: F BSA: 1.5 Room#: [facility] Admit Date#: 04/01/2016 Type: Inpatient Referring: Andres Bruno MD Reading: Ana Rudolph MD Service Operator: Chyna Hurtado RN RDCS CC: Tyrel Sosa MD CC: Gladis Carreon MD Transthoracic Echocardiogram Indication: TIA/CVA BP: 143/57 Rhythm: Bradycardia Findings History: HTN, palpitations Technical Comments: The study quality is fair. Completed at 1415. Left Ventricle: The left ventricular chamber size is normal. Mild concentric left ventricular hypertrophy is observed. Global left ventricular wall motion and contractility are within normal limits. The left ventricle appears hyperdynamic. The estimated ejection fraction is 60-65%. Abnormal left ventricular diastolic filling is observed, consistent with impaired relaxation. Left Atrium: The left atrium is mild to moderately dilated. Right Ventricle: The right ventricle is slightly dilated. The right ventricular global systolic function is normal. Right Atrium: The right atrium is mildly dilated. Aortic Valve: The aortic valve is trileaflet. The aortic valve leaflets are mildly thickened. There is mild to moderate aortic regurgitation. There is no evidence of aortic stenosis. The measured aortic regurgitation pressure half-time is 473 msec. Mitral Valve: There is mitral annular calcification. The mitral valve leaflets are mildly thickened. There is mild to moderate mitral regurgitation. There is no evidence of mitral stenosis. Tricuspid Valve: The tricuspid valve leaflets are normal. There is mild tricuspid regurgitation. There is evidence of mild pulmonary hypertension. There is no tricuspid stenosis. Pulmonic Valve: The pulmonic valve appears normal. There is trace to mild pulmonic regurgitation. There is no pulmonic stenosis. Pericardium: There is no significant pericardial effusion. A pericardial fat pad is visualized. Aorta: There is no dilatation of the ascending aorta. There is mild dilatation of the aortic arch. The aortic root is normal in size. Pulmonary Artery: The main pulmonary artery appears normal. Venous: The inferior vena cava appears normal in size. There is a greater than 50% respiratory change in the inferior vena cava dimension. Conclusions Mild concentric left ventricular hypertrophy is observed. Global left ventricular wall motion and contractility are within normal limits. Left ventricular ejection fraction 65%. Abnormal left ventricular diastolic filling is observed, consistent with impaired relaxation. Normal right ventricular systolic function. The aortic valve leaflets are mildly thickened. There is mild to moderate aortic regurgitation: P1/2 473 ms, no reversal of flow in the descending aorta. There is mild to moderate mitral regurgitation. There is mild tricuspid regurgitation. There is evidence of mild pulmonary hypertension: 37 mmHg. There is mild dilatation of the aortic arch. No cardioembolic source identified. Consider follow up bubble study if clinically indicated. Compared with prior echo of 02/02/16, no decline in ventricular function, AI was previously mild, MR previously mild, PA pressure not significantly changed, previously 41 mmHg. Measurements Name Value Normal Range RVIDd (AP) 2D 3.3 cm (0.9 - 2.6) RVDdMajor (2D) 3.2 cm (2.2 - 4.4) RAd ISD 4CH 5.1 cm (3.4 - 4.9) RA (A4C)W 3.9 cm (2.9 - 4.6) IVSd (2D) 1.1 cm (0.6 - 1) LVPWd (2D) 1.1 cm (0.6 - 1) LVIDd (2D) 4.1 cm (3.6 - 5.4) LVIDs (2D) 2.5 cm - LV FS (2D) 39 % (25 - 45) Aortic Annulus 1.7 cm (1.4 - 2.6) Ao root diameter (2D) 2.2 cm (2.1 - 3.5) Ascending Ao 2.9 cm (2.1 - 3.4) Aortic arch 3.6 cm (1.8 - 3.4) LA dimension (AP) 2D 3.4 cm (2.3 - 3.8) LAd ISD 4CH 4.9 cm (2.9 - 5.3) LA ISD 4CH W 4.2 cm (2.5 - 4.5) Name Value Normal Range LA ESV SP 4CH (A/L) 57 ml - LA ESV SP 2CH (A/L) 99 ml - LA ESV BP (A/L) 78 ml - LA ESV BP (A/L) index 52 ml/m2 - LA ESV SP 4CH (MOD) 54 ml - LA ESV SP 2CH (MOD) 98 ml - Name Value Normal Range MV E-wave Vmax 0.55 m/sec - MV deceleration time 373 msec - MV A-wave Vmax 0.82 m/sec - MV E:A ratio 0.7 ratio - LV septal e' Vmax 0.06 m/sec - LV lateral e' Vmax 0.06 m/sec - LV E:e' septal ratio 9.2 ratio - LV E:e' lateral ratio 9.2 ratio - Name Value Normal Range AV Vmax 1.6 m/sec - AV VTI 44 cm - AV peak gradient 9.6 mmHg - AV mean gradient 5.5 mmHg - LVOT Vmax 1.2 m/sec - LVOT VTI 31.4 cm - AR PHT 473 msec - VIVIAN Vmax 0.53 m/sec - Name Value Normal Range TR Vmax 2.9 m/sec - TR peak gradient 34 mmHg - RAP 3 mmHg - RVSP 37 mmHg - IVC diameter 0.9 cm - Name Value Normal Range PV Vmax 0.77 m/sec -
[2016-04-02 16:19] VITALS: BP 105/46
--- NOTE | 2016-04-02 23:10 | DS ---
DISCHARGE SUMMARY: DATE OF ADMISSION: 04/01/16 DATE OF DISCHARGE: 04/02/16 PRIMARY DIAGNOSIS: Transient ischemic attack with expressive aphasia SECONDARY DIAGNOSES: 1. Hypertension. 2. History of palpitations and supraventricular ectopy. 3. Carpal tunnel syndrome. 4. Lvvv-ek-xrrvaybg aortic regurgitation. 5. Ihkr-vi-gsacnguj mitral regurgitation. MEDICATIONS ON DISCHARGE: 1. Aspirin 325 mg p.o. every day. 2. Atenolol 50 mg p.o. q.a.m. and 25 mg p.o. q.p.m. 3. Meloxicam 7.5 mg p.o. b.i.d. p.r.n. for carpal tunnel. 4. Vitamin C. 5. Melatonin. 6. Fiber laxative. 7. Probiotics. 8. Magnesium with vitamin D. HOSPITAL COURSE: The patient was admitted to the emergency department by Dr. Bruno with an episode word-finding difficulty that began during dinner. There was no other associated weakness or facial asymmetry or visual changes. She was seen in the ER as a code aldridge had a rapid head CT that was negative. She was evaluated by Dr. Jones, Neurology who felt that she was not a candidate for TPA as the problem was resolving. The patient was admitted overnight for observation on telemetry and had no significant arrhythmias. The transthoracic echocardiogram showed ejection fraction in the 60% range with mild -to-moderate AI, hwil-cn-wjrdeacm MR and impaired relaxation in the diastolic phase. She also had a CT angiogram of the head and neck which showed no significant carotid or intracranial stenosis and she had an MRI of the brain that showed no infarct and just cortical involutional changes consistent with her age. Laboratory tests showed sodium 124 on admission and 129 on discharge. Creatinine came down from 1.29 to 1.05. Electrolytes otherwise normal. Her troponin was 0.03. Her cholesterol was 199 with 60 HDL and 109 LDL. Urinalysis was negative. I discussed the case with Dr. Jones on the morning of discharge. The patient was on low dose aspirin and may be resistant to this dose. He recommended increased dose to 325 mg. We have also discussed Plavix and Aggrenox as other alternatives. The patient has had outpatient workup for palpitations and was offered a one month long event monitor at Dr. Carreon's office back in January. This one-month event monitor should be pursued as an outpatient given the TIA and the lack of source from the carotid or cardiac structure investigations. Followup will be with Dr. Sosa as the primary care and Dr. Carreon for Cardiology. DISPOSITION: To home. ACTIVITY: Should be as tolerated. DIET: Should be low salt. CC: Dr. Sosa; Dr. Carreon* [id number]/[facility] #: [id number] MTDD
== END 2016-04-02 19:20 | disposition home or self-care (01) ==
LOC: ED 20:04 → MEDTELE 22:29
PROVIDERS: ADMIT Hospitalist; ATTEND Internal Medicine
DX: G45.9 Transient cerebral ischemic attack, unspecified (principal); R47.01 Aphasia; I10 Essential (primary) hypertension; G56.00 Carpal tunnel syndrome, unspecified upper limb; I35.1 Nonrheumatic aortic (valve) insufficiency; I34.0 Nonrheumatic mitral (valve) insufficiency; Z79.82 Long term (current) use of aspirin; Z88.5 Allergy status to narcotic agent; M19.049 Primary osteoarthritis, unspecified hand
CPT/HCPCS: 36415; 70450; 70496; 70498; 70551; 71010; 80048; 80053; 80061; 81003; 83605; 84484; 85025; 85610; 85730; 86850; 86900; 86901; 93005; 93306; 99285; A9270-GY; G0378; J1644; Q9967

== ENCOUNTER 2016-08-08 07:35 | Emergency (ER) | payer MEDICARE, BC ==
[2016-08-08 07:49] VITALS: BP 135/41
[2016-08-08] MEDS ORDERED: Lidocaine 1% INJ* 10 MG/ML 30 ML SDV INJ ONE (08:28)
[2016-08-08] MEDS ORDERED: BENZOIN COMPOUND TOPICAL ONE (08:28)
[2016-08-08] MEDS ORDERED: Tetan/Diph/Pertus SYR(Tdap)* 0.5 ML SYR(BOOSTRIX) use SYR IM ONE (08:30)
[2016-08-08] MEDS ORDERED: Lidocaine 1% MPF* 2 ML VIAL INJ ONE (08:43)
[2016-08-08] MEDS ORDERED: Benzoin Compound STICK TOPICAL ONE (08:43)
--- NOTE | 2016-08-08 09:11 | UC ---
rufino Wang Timothy, scribed for Willa Orozco MD on 08/08/16 at 0817 . Lower Extremity/Ankle HPI - HPI Summary HPI Summary: Fatoumata Carroll is an 86 yo female presenting to [facility] with mild pain in her left leg S/P a laceration from her metal bed frame at 2300 last night. She denies pain in her knee, thigh or ankle. She is accompanied by her neighbor in room. Pt states she was making the bed at the time of laceration, and did not fall. No analgesia taken. Triage notes a skin tear ~3.5 inches to outer lower left leg. No active bleeding. She is currently on ASA due to Hx of TIA. Not immunocompromised. Last tdap 2006.m Her PMHx includes 2 leaky heart valves, heart murmur, palpitations, possible irritable bowel, Skin CA, arthritis, hay fever, MRSA. Medications reviewed at this visit - History of Current Complaint Stated Complaint: LEG LAC Time Seen by Provider: 08/08/16 08:22 Hx Obtained From: Patient Onset/Duration: Sudden Onset, Lasting Hours, Still Present Severity Initially: Moderate Severity Currently: Moderate Pain Intensity: 2 Pain Scale Used: 0-10 Numeric Alleviating Factor(s): Rest Able to Bear Weight: Yes - Allergies/Home Medications Allergies/Adverse Reactions: Allergies Allergy/AdvReac Type Severity Reaction Status Date / Time Codeine AdvReac Mild Nausea Verified 04/01/16 22:54 Doxycycline AdvReac Mild Nausea Verified 04/01/16 22:54 Epinephrine AdvReac Mild Palpitation Verified 04/01/16 22:54 s Home Medications: Home Medications Omeprazole 08/08/16 [History] PMH/Surg Hx/FS Hx/Imm Hx Previously Healthy: No Cardiovascular History: Cardiac Disease, Hypertension, Other - leaky valves, murmur Other Cardiovascular History: murmur Neurological History: TIA Cancer History: Other - skin CA Other Cancer History: skin CA - Surgical History Surgical History: Yes Surgery Procedure, Year, and Place: Stomach surgery, double diverticulum, [facility]. HERNIA, 1983, [facility]. left EARS, stapectomy, [facility]. right ear, 1984, [facility]. 1985, right ear revision, [facility]. cataracts, laser surgery both eyes ,squamous cell skin cancer - Family History Known Family History: Negative: Cardiac Disease, Hypertension, Diabetes - Social History Occupation: Retired Lives: Alone Alcohol Use: None Alcohol Amount: 1 per day Substance Use Type: None Smoking Status (MU): Never Smoked Tobacco Have You Smoked in the Last Year: No - Immunization History Most Recent Tetanus Shot: 12/12 Review of Systems Constitutional: Negative Skin: Other - LLE skin laceration Eyes: Negative ENT: Negative Respiratory: Negative Cardiovascular: Negative Gastrointestinal: Negative Genitourinary: Negative Motor: Negative Neurovascular: Negative Musculoskeletal: Negative Neurological: Negative Psychological: Negative All Other Systems Reviewed And Are Negative: Yes Physical Exam Triage Information Reviewed: Yes Appearance: Well-Appearing, No Pain Distress, Well-Nourished Vital Signs: Initial Vital Signs Temp 97.4 F 08/08/16 07:38 Pulse 58 08/08/16 07:38 Resp 16 08/08/16 07:38 BP 135/41 08/08/16 07:38 Pulse Ox 99 08/08/16 07:38 Vital Signs Reviewed: Yes Eye Exam: Normal ENT: Positive: Hearing grossly normal - assist devices Dental Exam: Normal Neck: Positive: Supple, Nontender, No Lymphadenopathy Respiratory: Positive: Lungs clear, Normal breath sounds, No respiratory distress, No accessory muscle use Cardiovascular: Positive: Other: - 2+DP, PT CBT <2 sec Musculoskeletal: Positive: Other: - + SLE + flex/ext knee, ankle, great toe Neurological Exam: Normal Neurological: Positive: Alert, Other: - + gross sensation LE Psychological Exam: Normal Skin Exam: Other Skin: Positive: Other - LLE - Pt with 4 cm laceration left lower, lateral aspect of leg. Wound caudal/cranial Prox end and distal end 3mm thick on bilateral surfaces of wound. Middle of wound lateral aspect 2mm thick, medial aspect supferfical wound abrasion - with thin skin flap - not suturable in center Procedures - Procedure Summary Procedure Summary: Skin tear to LLE was closed with no complications. Pt tolerated procedure well. - Laceration/Wound Repair 1 Location: lower extremity - LLE Description: Linear Anesthesia: Local, 1.0% - 2ml Length, Depth and Shape: linear, 2mm deep, 4cm long. center of wound superficial skin tear and non-suturable. distal and prox ends suturable Betadine Prep?: No Irrigated w/ Saline (ccs): 300 - under pressure Laceration/Wound Explored: clean, no foreign body removed Closure: SteriStrips, Single Layer - 4 simple-interrupted, 1 horizontal mattress Debridement: minimal Suture Type: Nylon - 4-0 Number of Sutures: 5 - Center of wound non sutruable given the superficial nature of medial border and skin tear - closed with steristrips and benzoin Layer Closure?: Yes Sterile Dressing Applied?: Yes Lower Extremity Course/Dx - Course Course Of Treatment: Fatoumata Carroll is an 86 yo female presenting to [facility] with a 4 inch skin tear on her LLE S/P tearing it on her bed frame at 2300 last night. tdap 2006. In the urgent care course she recieved a tetanus vaccine. She declined any pain medication. In the urgent care course she received a tetanus vaccine, wound cleansing and closure. Her laceration was closed with 4- 0 nylon sutures with no complications (see procedure note) following copious irrigation. Pt tolerated well. wound care, s/s infection reviewed with pt. PT given supplies for wound care. encouarged for PCP recheck and suture removal 9- 10 days - Differential Dx/Diagnosis Differential Diagnosis/HQI/PQRI: Other - laceration Provider Diagnoses: LLE laceration. tdap booster Discharge - Discharge Plan Condition: Stable Disposition: HOME Prescriptions: Benzoin Compound STICK* 1 applic TOPICAL ONCE #1 stick Lidocaine 1% MPF 2 ML* [Xylocaine-Mpf] 2 ml .SEE ORDER ONCE #1 vial Patient Education Materials: Care For Your Stitches (ED), Laceration (ED), Stitches Removal (ED), Diphtheria/Pertussis/Tetanus Vaccine (By injection) Referrals: Tyrel Sosa MD [Primary Care Provider] - 08/17/16 Additional Instructions: Please follow up with your primary care physician in 8-10 days to have your sutures removed. - For the first 24 hours, keep your wound clean and dry. After that, okay to get wet but no soaking (no bath, hot tub, shower, espana) AFter getting wet, pat dry, cover your wound with a thin layer of antibiotic and bandage 2 times a day After 5 days, may leave open and exposed to air when sitting inside - but cover if you are outside or have pants that may rub your wound Monitor your wound for signs of infection - reddness, red streaking, odor, pus okay to take Tylenol every 6 hours as needed for pain You received a tetanus vaccine today. Your arm may be sore tomorrow- this is normal Return to urgent care or the emergency department with any new symptoms or questions or concerns. The documentation as recorded by the rufino alexander Timothy accurately reflects the service I personally performed and the decisions made by me, Willa Orozco MD.
== END 2016-08-08 09:38 | disposition home or self-care (01) ==
LOC: UCEAST 07:35
DX: S81.812A Laceration without foreign body, left lower leg, initial encounter (principal); Y93.E9 Activity, other interior property and clothing maintenance; W22.8XXA Striking against or struck by other objects, initial encounter; Z85.828 Personal history of other malignant neoplasm of skin; Y99.9 Unspecified external cause status; Y92.003 Bedroom of unspecified non-institutional (private) residence as the place of occurrence of the external cause; Z79.82 Long term (current) use of aspirin; Z86.73 Personal history of transient ischemic attack (TIA), and cerebral infarction without residual deficits; Z86.14 Personal history of Methicillin resistant Staphylococcus aureus infection; I38 Endocarditis, valve unspecified; R01.1 Cardiac murmur, unspecified; Z23 Encounter for immunization
CPT/HCPCS: 12002; 90471; 90715; 99211; G0463; J2001

== ENCOUNTER 2016-09-24 21:04 | Emergency (ER) | payer MEDICARE, BC ==
--- NOTE | 2016-09-24 21:07 | UC ---
Skin Complaint HPI - HPI Summary HPI Summary: 86 YEAR OLD FEMALE PRESENTS WITH COMPLAINS OF SEVERE LEFT HAND CELLULITIS. I WILL SEND HER TO THE ER. - History of Current Complaint Time Seen by Provider: 09/24/16 21:06 Stated Complaint: SKIN Hx Obtained From: Patient, Family/Office Manager Receptionist Onset/Duration: Sudden Onset Skin Exposure Onset/Duration: Minutes Ago Timing: Constant Onset Severity: Moderate Current Severity: Moderate Pain Scale Used: 0-10 Numeric - 5 Location: Discrete, Generalized Alleviating: Nothing Associated Signs & Symptoms: Positive: Joint Swelling - Allergy/Home Medications Allergies/Adverse Reactions: Allergies Allergy/AdvReac Type Severity Reaction Status Date / Time Codeine AdvReac Mild Nausea Verified 09/24/16 21:13 Doxycycline AdvReac Mild Nausea Verified 09/24/16 21:13 Epinephrine AdvReac Mild Palpitation Verified 09/24/16 21:13 s Review of Systems Constitutional: Negative Skin: Other - LEFT HAND CELLULITIS Eyes: Negative ENT: Negative Respiratory: Negative Cardiovascular: Negative Gastrointestinal: Negative Genitourinary: Negative Motor: Negative Neurovascular: Negative Musculoskeletal: Negative Neurological: Negative Psychological: Negative All Other Systems Reviewed And Are Negative: Yes PMH/Surg Hx/FS Hx/Imm Hx - Surgical History Surgical History: Yes Surgery Procedure, Year, and Place: Stomach surgery, double diverticulum, [facility] [place]. HERNIA, 1983, [facility] [place]. left EARS, stapectomy, [facility]. right ear, 1984, [facility]. 1985, right ear revision, [facility]. cataracts, laser surgery both eyes ,squamous cell skin cancer - Family History Known Family History: Negative: Cardiac Disease, Hypertension, Diabetes - Social History Alcohol Use: None Alcohol Amount: 1 per day Substance Use Type: None Smoking Status (MU): Never Smoked Tobacco Have You Smoked in the Last Year: No - Immunization History Most Recent Tetanus Shot: 12/12 Physical Exam Triage Information Reviewed: Yes Eye Exam: Normal ENT Exam: Normal Dental Exam: Normal Neck exam: Normal Neck: Positive: 1 Respiratory Exam: Normal Cardiovascular Exam: Normal Abdominal Exam: Normal Musculoskeletal Exam: Normal Neurological Exam: Normal Psychological Exam: Normal Skin: Positive: Other - LEFT HAND CELLULITIS Course/Dx - Diagnoses Provider Diagnoses: LEFT HAND CELLULITIS Discharge - Discharge Plan Condition: Stable Disposition: HOME Patient Education Materials: Cellulitis (ED) Referrals: Tyrel Sosa MD [Primary Care Provider] - Additional Instructions: PLEASE GO TO THE ER FOR CELLULITIS OF THE LEFT HAND.
[2016-09-24 21:13] VITALS: BP 185/78
== END 2016-09-24 21:52 | disposition home or self-care (01) ==
LOC: UCEAST 21:04
DX: L03.114 Cellulitis of left upper limb (principal); Z88.3 Allergy status to other anti-infective agents; Z88.5 Allergy status to narcotic agent
CPT/HCPCS: 99212; G0463

== ENCOUNTER 2016-09-24 22:01 | Emergency (ER) | payer MEDICARE, BC ==
[2016-09-25] MEDS ORDERED: Clindamycin CAP* 150 MG PO ONE ×2 (02:05→02:06)
[2016-09-25 02:32] LABS: Hematocrit 33 % (35-47); Hemoglobin 11.3 g/dl (12.0-16.0); Mean Corpuscular HGB Conc 34 g/dl (31-36); Mean Corpuscular Hemoglobin 32 pg (27-31); Mean Corpuscular Volume 94 fL (80-97); Mean Platelet Volume 7 um3 (7.4-10.4); Red Blood Count 3.53 10^6/ul (4.0-5.4); Red Cell Distribution Width 13 % (10.5-15); White Blood Count 7.3 10^3/ul (3.5-10.8)
[2016-09-25 02:50] LABS: Albumin 3.5 g/dL (3.2-5.2); BUN/Creatinine Ratio 18.4 (8-20); Calcium 9.1 mg/dL (8.6-10.3); EGFR African American 93.2 (>60); EGFR Non-African American 72.5 (>60); Total Bilirubin 0.3 mg/dL (0.2-1.0); Total Protein 6.5 g/dL (6.4-8.9); Uric Acid 4.7 mg/dL (2.3-6.6)
[2016-09-25 03:33] LABS: Erythrocyte Sed Rate 45 mm/Hr (0-40)
[2016-09-25 03:53] LABS: C Reactive Protein 6.64 mg/L (< 5.00)
[2016-09-25 05:47] VITALS: BP 164/73
--- NOTE | 2016-09-25 06:51 | ED ---
Antoinette Wang Rebecca, scribed for Matthew Spaulding MD on 09/25/16 at 0156 . Upper Extremity Pain - HPI Summary HPI Summary: Pt is an 86 y/o F who presents to ED referred from [facility] c/o L hand swelling, erythema and warmth. Sx began 1 week ago and has been progressively worsening, particularly today. Associated pain waxes and wanes in intensity and is currently moderate, ranked 5/10 and aggravated by movement, alleviated by nothing. Denies fever, chills, myalgias. The erythema is discrete to the L hand. Reports that no other joints are involved. Pt had a Dx of cellulitis approximately 20 days ago for which she was given Cephalexin BID for 10 days that she finished 10 days ago that improved sx. No recent animal or tick bites. No open wounds. No PMHx gout. - History of Current Complaint Chief Complaint: EDGeneral Stated Complaint: XFER FROM EAST/LEFT HAND SWELLING Time Seen by Provider: 09/25/16 01:46 Hx Obtained From: Patient Onset/Duration: Started Weeks Ago - 1 week, Still Present, Worse Since - today Severity Currently: Moderate - 5/10 Pain Location: Hand - Left Aggravating Factor(s): Movement Alleviating Factor(s): Nothing Associated Signs & Symptoms: Positive: Swelling, Redness, Other - Warmth to touch - Allergies/Home Medications Allergies/Adverse Reactions: Allergies Allergy/AdvReac Type Severity Reaction Status Date / Time Codeine AdvReac Mild Nausea Verified 09/25/16 01:34 Doxycycline AdvReac Mild Nausea Verified 09/25/16 01:34 Epinephrine AdvReac Mild Palpitation Verified 09/25/16 01:34 s PMH/Surg Hx/FS Hx/Imm Hx Endocrine/Hematology History: Denies: Hx Diabetes, Hx Thyroid Disease Cardiovascular History: Reports: Hx Hypertension - ON MEDS, 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, Other Cardiovascular Problems/Disorders - HX TACHYCARDIA Respiratory History: Denies: Hx Asthma, Hx Chronic Obstructive Pulmonary Disease (COPD) GI History: Reports: Hx Irritable Bowel - POSSIBLE Denies: Hx Ulcer History: Denies: Hx Dialysis, Hx Renal Disease Musculoskeletal History: Reports: Hx Arthritis - HANDS Sensory History: Reports: Hx Cataracts - ARABELLA, Hx Contacts or Glasses - GLASSES, Hx Hearing Aid - LEFT EAR Opthamlomology History: Reports: Hx Cataracts - ARABELLA, Hx Contacts or Glasses - GLASSES - Cancer History Cancer Type, Location and Year: SKIN Hx Chemotherapy: No Hx Radiation Therapy: No - Surgical History Surgery Procedure, Year, and Place: Stomach surgery, double diverticulum, [facility]. HERNIA, 1983, [facility]. left EARS, stapectomy, [facility]. right ear, 1984, [facility]. 1985, right ear revision, [facility]. cataracts, laser surgery both eyes ,squamous cell skin cancer Hx Anesthesia Reactions: No - Immunization History Date of Tetanus Vaccine: utd Date of Influenza Vaccine: fall 2015 Infectious Disease History: No Infectious Disease History: Denies: Hx Clostridium Difficile, Hx Hepatitis, Hx Human Immunodeficiency Virus (HIV), Hx of Known/Suspected MRSA, Hx Shingles, Hx Tuberculosis, Hx Known/ Suspected VRE, Hx Known/Suspected VRSA, History Other Infectious Disease, Traveled Outside the in Last 30 Days - Family History Known Family History: Negative: Cardiac Disease, Hypertension, Diabetes - Social History Alcohol Use: Daily Alcohol Amount: 1 per day Substance Use Type: Reports: None Smoking Status (MU): Never Smoked Tobacco Have You Smoked in the Last Year: No Review of Systems Negative: Fever, Chills Positive: Arthralgia - L hand swelling, warmth and erythema. Negative: Myalgia All Other Systems Reviewed And Are Negative: Yes Physical Exam - Summary Physical Exam Summary: The patient is well-nourished in no acute distress and in no acute pain. The skin is warm and dry. HEENT: The head is normocephalic and atraumatic. The pupils are equal and reactive. The conjunctivae are clear and without drainage. Nares are patent and without drainage. Mouth reveals moist mucous membranes and the throat is without erythema and exudate. The external ears are intact. The ear canals are patent and without drainage. The tympanic membranes are intact. Neck is supple with full range of motion and non-tender. There are no carotid bruits. There is no nuchal rigidity. Respiratory: Chest is non-tender. Lungs are clear to auscultation and breath sounds are symmetrical and equal. Cardiovascular: Hear is regular rate and rhythm. There is no murmur or rub auscultated. There is no peripheral edema and pulses are symmetrical and equal. Abdomen: The abdomen is soft and non-tender. There are normal bowel sounds heard in all four quadrants and there is no organomegaly palpated. Musculoskeletal: There is no back pain noted. Extremities are non-tender with full range of motion. There is good capillary refill. Examination of the LUE reveals marked edema and swelling on her left thumb. It is warm to touch and erythematous with no open areas. There is good capillary refill. The symptoms have extended into the index finger and dorsum of the hand an into the middle finger. Seems to have spared the ring finger and little finger. There is an erythematous area on the bicep area of her LUE as well, which is not warm or not. Did not see any lymphangitis. There is no adenopathy of her elbow. Neurological: Patient is alert and oriented to person, place and time. The patient has symmetrical motor strength in all four extremities. Psychiatric: The patient has an appropriate affect and does not exhibit any anxiety or depression. Triage Information Reviewed: Yes Vital Signs On Initial Exam: Initial Vitals Temp Pulse Resp BP Pulse Ox 98.7 F 66 18 184/56 100 09/24/16 22:07 09/24/16 22:07 09/24/16 22:07 09/24/16 22:07 09/24/16 22:07 Vital Signs Reviewed: Yes - [place] Coma Scale Coma Scale Total: 15 Diagnostics - Vital Signs Vital Signs Temp Pulse Resp BP Pulse Ox 09/25/16 01:25 98.3 F 59 16 162/56 100 09/24/16 23:48 98.2 F 58 20 144/54 100 09/24/16 22:07 98.7 F 66 18 184/56 100 - Laboratory Lab Results: Lab Results 09/25/16 09/25/16 Range/Units 02:20 02:20 WBC 7.3 (3.5-10.8) 10^3/ul RBC 3.53 L (4.0-5.4) 10^6/ul Hgb 11.3 L (12.0-16.0) g/dl Hct 33 L (35-47) % MCV 94 (80-97) fL MCH 32 H (27-31) pg MCHC 34 (31-36) g/dl RDW 13 (10.5-15) % Plt Count 275 (150-450) 10^3/ul MPV 7 L (7.4-10.4) um3 Neut % (Auto) 73.5 (38-83) % Lymph % (Auto) 14.5 L (25-47) % Butler % (Auto) 8.1 (1-9) % Eos % (Auto) 2.6 (0-6) % Baso % (Auto) 1.3 (0-2) % Absolute Neuts (auto) 5.3 (1.5-7.7) 10^3/ul Absolute Lymphs (auto) 1.1 (1.0-4.8) 10^3/ul Absolute Monos (auto) 0.6 (0-0.8) 10^3/ul Absolute Eos (auto) 0.2 (0-0.6) 10^3/ul Absolute Basos (auto) 0.1 (0-0.2) 10^3/ul Absolute Nucleated RBC 0 10^3/ul Nucleated RBC % 0 ESR 45 H (0-40) mm/Hr Sodium 128 L (133-145) mmol/L Potassium 4.0 (3.5-5.0) mmol/L Chloride 96 L (101-111) mmol/L Carbon Dioxide 29 (22-32) mmol/L Anion Gap 3 (2-11) mmol/L BUN 14 (6-24) mg/dL Creatinine 0.76 (0.51-0.95) mg/dL Est GFR ( Amer) 93.2 (>60) Est GFR (Non-Af Amer) 72.5 (>60) BUN/Creatinine Ratio 18.4 (8-20) Glucose 109 H (70-100) mg/dL Uric Acid 4.7 (2.3-6.6) mg/dL Calcium 9.1 (8.6-10.3) mg/dL Total Bilirubin 0.30 (0.2-1.0) mg/dL AST 29 (13-39) U/L ALT 19 (7-52) U/L Alkaline Phosphatase 90 (34-104) U/L C-Reactive Protein 6.64 H (< 5.00) mg/L Total Protein 6.5 (6.4-8.9) g/dL Albumin 3.5 (3.2-5.2) g/dL Globulin 3.0 (2-4) g/dL Albumin/Globulin Ratio 1.2 (1-3) Result Diagrams: 09/25/16 02:20 09/25/16 02:20 Lab Statement: Any lab studies that have been ordered have been reviewed, and results considered in the medical decision making process. Re-Evaluation - Re-Evaluation First Eval Re-Evaluation Time: 02:00 Comment: Agreed to PO CLindamycin and f/u with Dr. Andrade. Course/Dx - Course Assessment/Plan: Pt is an 86 y/o F who presents to ED referred from [facility] c/o L hand swelling, erythema and warmth. Sx began 1 week ago and has been progressively worsening. Associated pain waxes and wanes in intensity and is currently moderate, ranked 5/10 and aggravated by movement, alleviated by nothing. Denies fever, chills. The erythema is discrete to the L hand. Reports that no other joints are involved. Pt had a Dx of cellulitis approximately 20 days ago for which she was given Cephalexin for 10 days that she finished 10 days ago. No recent animal or tick bites. No open wounds. No PMHx gout. In the ED course, the pt received Clindamycin PO. She will be D/C to home with Dx of cellulitis of the LUE and an Rx for Clindamycin and a follow up with Dr. Andrade this week. She understands and agrees. Elevated BP noted and advised to f/u with PCP. - Diagnoses Differential Diagnosis/HQI/PQRI: Positive: Other - lyme's disease, gout, arthritis Provider Diagnoses: Cellulitis of left arm Discharge - Discharge Plan Condition: Stable Disposition: HOME Prescriptions: Clindamycin Cap(NF) [Clindamycin Cap 300 mg Cap(NF)] 300 mg PO Q6H #38 cap Patient Education Materials: Cellulitis (ED) Referrals: Tyrel Sosa MD [Primary Care Provider] - (Follow up with Dr. Andrade's office this week. ) The documentation as recorded by the Antoinette alexander Rebecca accurately reflects the service I personally performed and the decisions made by me, Matthew Spaulding MD.
[2016-09-26 20:35] LABS: Lyme Disease IgG Ab WB Negative (Negative)
== END 2016-09-25 02:55 | disposition home or self-care (01) ==
LOC: ED 22:01
DX: L03.114 Cellulitis of left upper limb (principal)
CPT/HCPCS: 36415; 80053; 84550; 85025; 85652; 86140; 86617; 86618; 99282; A9270-GY

== ENCOUNTER 2017-04-12 12:56 | Emergency (ER) | payer MEDICARE, BC ==
--- OUTSIDE RECORDS SUMMARY | 2017-04-12 13:05 | XMS REPORT ---
:1930 External Reference #:[id number] Author Organization [facility] Address [address] [address] Phone [phone] Care Team Providers Name Role Phone Tyrel Sosa MD Primary Care Physician Unavailable Payers Type Date Identification Numbers Payment Provider Subscriber Medicare Primary Effective: Policy Number: Medicare Fatoumata Carroll 1995 [id number] PayID: [id number] [address] [place] [address] Medigap Part B Expires: 2012 [facility]: [facility] [id number] Group Number: [id number] [address] PayID: [id number] [place] [address] Medigap Part B Effective: Policy Number: BS Leon Carroll 2012 [id number] PayID: [id number] [address] [address] [address] Problems Date Description Provider Status Onset: 01/11/2011 Benign essential hypertension Mary Morris M.D. Onset: 01/11/2011 Electrocardiogram abnormal Mary Morris M.D. Onset: 01/11/2011 Paroxysmal supraventricular Mary Morris tachycardia Alireza Onset: 01/11/2011 Palpitations Mary Morris M.D. Onset: 01/11/2011 Mitral valve disorder Mary Morris M.D. Onset: 01/11/2011 Aortic valve disorder Mary Morris M.D. Onset: 04/15/2012 Tachycardia Mary Morris M.D. Onset: 04/15/2012 Supraventricular premature beats Mary Morris M.D. Onset: 04/15/2012 Premature beats Gladis Carreon, Inactive Alireza Inactive: 04/02/2016 Onset: 04/13/2015 Essential hypertension Gladis Carreon M.D. 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 Cigarette Use Never Smoked Cigarettes ETOH Use Currently consumes alcohol ETOH Use Consumes 1 glass of wine per day Smoking Patient has never smoked Recreational Drug Use Denies Drug Use Daily Caffeine Consumes on average 2 cups of hot tea per day decaff Exercise Type/Frequency Exercises regularly Allergies, Adverse Reactions, Alerts Date Description Reaction Status Severity Comments 03/19/2006 Codeine active nausea 03/19/2006 Doxcycline active nausea 03/19/2006 Epinephrine active extreme elevation of hr Medications Medication Date Status Form Strength Qnty SIG Indications Ordering Provider Advil PM 03/12 Active Capsules 200-25mg qhs Gladis Ivis Carreon M.D. Vitamin C Active Chewtabs 500mg 1 po bid Acidophilus Active Tablets 1 po twice Unknown /0000 daily Fiber-Lax Active Tablets 30tab 3 po qd / s Melatonin Active Capsules 3mg 90cap 1 po qhs s Beano Active Tablets twice daily Unknown as needed Antivert Active 12.5mg as needed Meloxicam Active Tablets 7.5mg take 1 tab Unknown / by mouth qdaily with food Glucosamine Active Capsules 500mg 1 cap by Unknown Sulfate /0000 mouth twice daily Calcium Active Capsules 200-100-3 1 by mouth Unknown 600/Magnesium /0000 3.3mg-mg- twice daily 300/Vitamin D Unit Fish Oil Active Capsules 1200mg 1 by mouth Unknown twice daily Aspirin Active Tablets 325mg 1 by mouth Unknown every day Omeprazole Active Capsules 40mg [address] every day Hydrochlorothiazid Active Capsules 12.5mg Take 1 Unknown e Capsule By Mouth Every Day For Fluid Preservision Areds Active Capsules 1 tab by Unknown / mouth twice per day Sulfamethoxazole/T Active Tablets 800-160mg by mouth Unknown rimethoprim twice a day x 14 day for leg infection Atenolol 04/22 Hx Tablets 50mg 135ta 1 by mouth bs every [facility] - [facility] tablet , M.[facility]. /2017 in the evening Digoxin 10/27 Hx Tablets 125mcg 90tab 1 by mouth yb s every day S[facility] , M.D. Atenolol 05/07 Hx Tablets 100mg 90tab 1/2 tab by Qutayb s mouth twice [facility]. Fish Oil 09/09 Hx Capsules 120ca 2 po qd ps S. [facility] 12[facility] , M.D. Digoxin 01/21 Hx Tablets 0.125mg 7tabs 1 by mouth tayb every day S. - [facility] 10/27 , M.D. Atenolol 01/20 Hx Tablets 25mg 160ta 2 am and 2 bs pm S. [facility] 05/07 , M.D. Tylenol PM 04/24 Hx Tablets 1 PO at hs Aaron Francisco Lauri 03/12 , M.D. Calcium With Vit D 04/24 Hx Capsules 600mg 1 po bid yb S. Lauri 12/19 , M.D. Vitamin C 04/24 Hx Tablet 500mg 1 tablet po Aarontayb qd Francisco juliocesar 01/12 , M.D. /2009 Glucosamine 04/24 Hx Tablets 1 PO bid Qutayb S. - Maghaydah 12/19 , M.D. /2015 Amoxicillin 03/19 Hx Capsules 500mg 4caps 4 Cap 1HR Qutayb Before S. - [facility] Procedures , M.D. /2007 Vitamins Multiple 03/19 Hx Caplets 30cap 1 PO qd Quta s S. - Maghaydah 04/09 , M.D. /2017 Ignatia Ange 03/19 Hx 1 tab qhs Quta for S. - nervousness Magydah 04/24 , M.D. /2006 Fosamax 03/16 Hx Tablets 70mg One Tablet Weekly S. - Maghaydah 09/09 , M.D. /2008 Atenolol 03/16 Hx Tablets 25mg 30tab 1 po bid Qutayb s S. - Maghaydah 01/20 , M.D. /2007 Aspirin Hx Tablets 81mg 1 po qd Unknown /0000 DR - 08/24 Cephalexin Hx Capsules 500mg 1 by mouth Unknown /0000 two times a - day for 10 SSD- Antibiotic Hx Cream 1% once daily Ian, /0000 on infected Tyrel, - leg wound 04/09 Vital Signs Date Vital Result Comment 04/10/2017 Height 62 inches 5'2" Weight 122.00 lb Heart Rate 60 /min BP Systolic Sitting 108 mmHg Lue reg cuff BP Diastolic Sitting 72 mmHg Lue reg cuff BP Systolic Standing 114 mmHg Lue BP Diastolic Standing 72 mmHg Lue Respiratory Rate 14 /min BMI (Body Mass Index) 22.3 kg/m2 Ejection Fraction 60-65% 04/02/16 08/24/2016 Height 62 inches 5'2" Weight 125.00 lb Heart Rate 60 /min BP Systolic Sitting 138 mmHg Lue reg cuff BP Diastolic Sitting 72 mmHg Lue reg cuff BP Systolic Standing 134 mmHg Lue BP Diastolic Standing 72 mmHg Lue Respiratory Rate 16 /min BMI (Body Mass Index) 22.9 kg/m2 Ejection Fraction 60-65% 04/02/16 02/11/2016 Height 62 inches 5'2" Weight 122.00 lb with shoes Heart Rate 60 /min BP Systolic Sitting 158 mmHg LA reg cuff BP Diastolic Sitting 78 mmHg LA reg cuff BMI (Body Mass Index) 22.3 kg/m2 Ejection Fraction 55% - 60% echo 02/02/16 01/12/2016 Height 62 inches 5'2" Weight 121.75 lb w/shoes Heart Rate 62 /min BP Systolic Sitting 180 mmHg LA reg cuff BP Diastolic Sitting 90 mmHg LA reg cuff BMI (Body Mass Index) 22.3 kg/m2 Ejection Fraction 50-55% Echo 07/22/14 12/20/2015 Height 62 inches 5'2" Weight 121.00 lb with shoes Heart Rate 52 /min BP Systolic Sitting 168 mmHg LA reg cuff BP Diastolic Sitting 70 mmHg LA reg cuff BMI (Body Mass Index) 22.1 kg/m2 Ejection Fraction 50% - 55% echo 07/22/14 05/14/2015 Heart Rate 54 /min BP Systolic 128 mmHg Ra, regular BP Diastolic 58 mmHg Ra, regular BP Systolic Sitting 132 mmHg LA, regular BP Diastolic Sitting 64 mmHg LA, regular BP Systolic Standing 124 mmHg Ra, regular BP Diastolic Standing 60 mmHg Ra, regular BP Systolic Lying Down 133 mmHg LA, home unit BP Diastolic Lying Down 64 mmHg LA, home unit 04/20/2015 Heart Rate 52 /min BP Systolic 114 mmHg LA, regular cuff, sit BP Diastolic 64 mmHg LA, regular cuff, sit BP Systolic Sitting 112 mmHg Ra, regular cuff BP Diastolic Sitting 70 mmHg Ra, regular cuff BP Systolic Standing 108 mmHg Ra, regular stand BP Diastolic Standing 60 mmHg Ra, regular stand 04/13/2015 Height 62 inches 5'2" Weight 118.00 lb Heart Rate 50 /min BP Systolic Sitting 152 mmHg LA, reg BP Diastolic Sitting 70 mmHg LA, reg BMI (Body Mass Index) 21.6 kg/m2 Ejection Fraction 50%-55% 07/22/14 08/11/2014 Height 62 inches 5'2" Weight 121.50 lb w/shoes Heart Rate 56 /min BP Systolic Sitting 146 mmHg Ra reg cuff BP Diastolic Sitting 64 mmHg Ra reg cuff BMI (Body Mass Index) 22.2 kg/m2 Ejection Fraction 50-55 echo 07/22/14 07/03/2014 Height 62 inches 5'2" Weight 122.00 lb Heart Rate 56 /min BP Systolic 164 mmHg LA reg BP Diastolic 68 mmHg LA reg BP Systolic Standing 168 mmHg LA reg BP Diastolic Standing 70 mmHg LA reg BMI (Body Mass Index) 22.3 kg/m2 Ejection Fraction 55-50% 07/11/13 ECHO 11/04/2013 Height 62 inches 5'2" Weight 120.00 lb Heart Rate 52 /min BMI (Body Mass Index) 21.9 kg/m2 10/28/2013 Height 62 inches 5'2" Weight 120.00 lb Heart Rate 52 /min BMI (Body Mass Index) 21.9 kg/m2 07/16/2013 Height 62.5 inches 5'2.50" Weight 128.75 lb Heart Rate 60 /min BP Systolic Sitting 130 mmHg BP Diastolic Sitting 62 mmHg Respiratory Rate 16 /min BMI (Body Mass Index) 23.2 kg/m2 11/15/2012 Height 62.5 inches 5'2.50" Weight 125.00 lb Heart Rate 72 /min BP Systolic Sitting 128 mmHg BP Diastolic Sitting 50 mmHg Respiratory Rate 16 /min BMI (Body Mass Index) 22.5 kg/m2 04/15/2012 Height 62.5 inches 5'2.50" Weight 125.00 lb Heart Rate 56 /min BP Systolic Sitting 100 mmHg BP Diastolic Sitting 62 mmHg Respiratory Rate 16 /min BMI (Body Mass Index) 22.5 kg/m2 03/08/2012 Height 62.5 inches 5'2.50" Weight 126.00 lb Heart Rate 60 /min BP Systolic 128 mmHg BP Diastolic 74 mmHg BMI (Body Mass Index) 22.7 kg/m2 03/01/2012 Height 62.5 inches 5'2.50" Weight 123.00 lb Heart Rate 68 /min BP Systolic Sitting 178 mmHg BP Diastolic Sitting 70 mmHg Respiratory Rate 16 /min BMI (Body Mass Index) 22.1 kg/m2 02/29/2012 Heart Rate 68 /min BP Systolic Sitting 172 mmHg BP Diastolic Sitting 78 mmHg BP Systolic Lying Down 170 mmHg after 5 min BP Diastolic Lying Down 76 mmHg after 5 min Respiratory Rate 16 /min 12/13/2011 Height 63 inches 5'3" Weight 125.00 lb Heart Rate 60 /min BP Systolic 118 mmHg BP Diastolic 60 mmHg BMI (Body Mass Index) 22.1 kg/m2 01/11/2011 Height 63 inches 5'3" Weight 130.00 lb Heart Rate 59 /min BP Systolic Sitting 164 mmHg BP Diastolic Sitting 64 mmHg BMI (Body Mass Index) 23.0 kg/m2 01/12/2010 Height 63 inches 5'3" Weight 128.00 lb Heart Rate 56 /min BP Systolic Sitting 142 mmHg BP Diastolic Sitting 80 mmHg BMI (Body Mass Index) 22.7 kg/m2 09/09/2008 Height 63 inches 5'3" Weight 129.00 lb Heart Rate 58 /min BP Systolic Sitting 110 mmHg L BP Diastolic Sitting 62 mmHg L BMI (Body Mass Index) 22.8 kg/m2 03/12/2008 Height 63 inches 5'3" Weight 131.00 lb Heart Rate 55 /min BP Systolic Sitting 164 mmHg L BP Diastolic Sitting 78 mmHg L BMI (Body Mass Index) 23.2 kg/m2 01/21/2008 Height 63 inches 5'3" Weight 128.00 lb Heart Rate 70 /min BP Systolic Sitting 124 mmHg BP Diastolic Sitting 80 mmHg BMI (Body Mass Index) 22.7 kg/m2 07/24/2007 Height 63 inches 5'3" Weight 131.00 lb Heart Rate 57 /min BP Systolic Sitting 150 mmHg L BP Diastolic Sitting 70 mmHg L BMI (Body Mass Index) 23.2 kg/m2 01/21/2007 Height 63 inches 5'3" Weight 130.00 lb Heart Rate 58 /min BP Systolic Sitting 130 mmHg L BP Diastolic Sitting 70 mmHg L BMI (Body Mass Index) 23.0 kg/m2 07/30/2006 Height 63 inches 5'3" Weight 131.00 lb Heart Rate 61 /min BP Systolic Sitting 112 mmHg BP Diastolic Sitting 70 mmHg BMI (Body Mass Index) 23.2 kg/m2 04/24/2006 Height 63 inches 5'3" Weight 128.00 lb Heart Rate 68 /min BP Systolic Sitting 120 mmHg BP Diastolic Sitting 66 mmHg Respiratory Rate 16 /min BMI (Body Mass Index) 22.7 kg/m2 Results Test Date Test Result H/L Range Note Wound Culture/Sensi 04/10/2017 Wound/Misc SEE RESULT BELOW 1, 2 Culture-Gram Stain Laboratory test 04/10/2017 Magnesium <pending> finding Laboratory test 03/27/2017 Epifix 2X2 SEE RESULTS BELO 3, 4 finding <SEE NOTE> Laboratory test 02/26/2017 Epifix 2X2 SEE RESULTS BELO 3, 5 finding <SEE NOTE> Wound Culture/Sensi 02/20/2017 Wound/Misc SEE RESULT BELOW 6 Culture-Gram Stain Laboratory test 02/13/2017 Epifix 18 SEE RESULTS BELO 3, 7 finding <SEE NOTE> Laboratory test 01/22/2017 Epifix 18 SEE RESULTS BELO 3, 8 finding <SEE NOTE> Laboratory test 12/25/2016 Epifix 2X3 SEE RESULTS BELO 3, 9 finding <SEE NOTE> Laboratory test 12/12/2016 Apligraf SEE RESULTS BELO 3, 10 finding <SEE NOTE> Laboratory test 12/04/2016 Apligraf SEE RESULTS BELO 3, 11 finding <SEE NOTE> Wound Culture/Sensi 11/14/2016 Wound/Misc SEE RESULT BELOW 12 Culture-Gram Stain Laboratory test 11/13/2016 Apligraf SEE RESULTS BELO 3, 13 finding <SEE NOTE> Laboratory test 11/06/2016 Apligraf SEE RESULTS BELO 3, 14 finding <SEE NOTE> Laboratory test 10/24/2016 Apligraf SEE RESULTS BELO 3, 15 finding <SEE NOTE> Laboratory test 01/12/2016 TSH (Thyroid Stim 3.90 mcIU/mL 0.34-5.60 finding Horm) Magnesium 2.0 mg/dL 1.9-2.7 CBC Auto Diff 01/12/2016 White Blood Count 7.4 10^3/uL 3.5-10.8 Red Blood Count 3.93 10^6/uL Low 4.0-5.4 Hemoglobin 12.6 g/dL 12.0-16.0 Hematocrit 37 % 35-47 Mean Corpuscular Volume 93 fL 80-97 Mean Corpuscular Hemoglobin 32 pg High 27-31 Mean Corpuscular HGB Conc 35 g/dL 31-36 Red Cell Distribution Width 14 % 10.5-15 Platelet Count 223 10^3/uL 150-450 Mean Platelet Volume 8 um3 7.4-10.4 Abs Neutrophils 5.5 10^3/uL 1.5-7.7 Abs Lymphocytes 1.0 10^3/uL 1.0-4.8 Abs Monocytes 0.7 10^3/uL 0-0.8 Abs Eosinophils 0.1 10^3/uL 0-0.6 Abs Basophils 0.1 10^3/uL 0-0.2 Abs Nucleated RBC 0.01 10^3/uL Granulocyte % 74.4 % 38-83 Lymphocyte % 13.9 % Low 25-47 Monocyte % 9.2 % High 1-9 Eosinophil % 1.3 % 0-6 Basophil % 1.2 % 0-2 Nucleated Red Blood Cells % 0.1 Basic Metabolic Panel 01/12/2016 Sodium 133 mmol/L 133-145 Potassium 4.6 mmol/L 3.5-5.0 Chloride 96 mmol/L Low 101-111 Co2 Carbon Dioxide 32 mmol/L 22-32 Anion Gap 5 mmol/L 2-11 Glucose 93 mg/dL 70-100 Blood Urea Nitrogen 17 mg/dL 6-24 Creatinine 0.82 mg/dL 0.51-0.95 BUN/Creatinine Ratio 20.7 High 8-20 Calcium 9.9 mg/dL 8.6-10.3 Egfr Non- 66.6 >60 Egfr 85.6 >60 16 Laboratory test finding 03/01/2012 Digoxin 0.2 ng/mL Low 0.5-1.5 17 CBC Auto Diff 03/01/2012 White Blood Count 6.3 10^3/uL 4.8-10.8 Red Blood Count 3.99 10^6/uL Low 4.0-5.4 Hemoglobin 12.7 g/dL 12.0-16.0 Hematocrit 38 % 35-47 Mean Corpuscular Volume 95 fL 80-97 Mean Corpuscular Hemoglobin 32 pg High 27-31 Mean Corpuscular HGB Conc 34 g/dL 31-36 Red Cell Distribution Width 14 % 10.5-15 Platelet Count 218 10^3/uL 150-450 Mean Platelet Volume 8 um3 7.4-10.4 Abs Neutrophils 4.5 10^3/uL 1.5-7.7 Abs Lymphocytes 1.1 10^3/uL 1.0-4.8 Abs Monocytes 0.6 10^3/uL 0-0.8 Abs Eosinophils 0.1 10^3/uL 0-0.6 Abs Basophils 0 10^3/uL 0-0.2 Abs Nucleated RBC 0 10^3/uL Granulocyte % 72.4 % 38-83 Lymphocyte % 17.1 % Low 25-47 Monocyte % 8.9 % 1-9 Eosinophil % 0.8 % 0-6 Basophil % 0.8 % 0-2 Nucleated Red Blood Cells % 0 Basic Metabolic Panel 03/01/2012 Sodium 136 mmol/L 133-145 Potassium 3.9 mmol/L 3.5-5.0 Chloride 101 mmol/L 101-111 Co2 Carbon Dioxide 30.0 mmol/L 22-32 Anion Gap 5.0 mmol/L 2-11 Glucose 81 mg/dL 70-100 Blood Urea Nitrogen 11 mg/dL 6-24 Creatinine 0.80 mg/dL 0.50-1.40 BUN/Creatinine Ratio 13.8 8-20 Calcium 9.4 mg/dL 8.1-9.9 Egfr Non- 69.2 >60 Egfr 89.0 >60 18 Basic Metabolic Panel 01/21/2008 Sodium 137 mmol/L 135-145 Potassium 4.1 mmol/L 3.5-5.0 Chloride 102 mmol/L 101-111 Co2 (Carbon Dioxide) 33.0 mmol/L High 22-32 Anion Gap 2.0 mmol/L 2-11 19 Glucose 81 mg/dL 70-100 20 BUN 14 mg/dL 6-24 Creatinine 0.80 mg/dL 0.50-1.40 One Over Creatinine 1.20 BUN/Creatinine Ratio 17.5 8-20 Calcium 9.2 mg/dL 8.1-9.9 21 CBC With Electronic Diff 01/21/2008 White Blood Count 6.4 CUMM 4.8-10.8 Red Cell Count 4.26 CUMM 4.2-5.4 Hemoglobin 13.4 g/dL 12.0-16.0 Hematocrit 39 % 35-47 Mean Corpuscular Volume 91 um3 79-97 Mean Corpuscular Hemoglob 31 pg 27-31 Mean Corpuscular HGB Cone 35 g/dL 32-36 Redcell Distribution WDTH 13 % 10.5-15 Platelet Count 302 CUMM 150-450 Mean Platelet Volume 7.1 um3 Low 7.4-10.4 Gran % 71.2 % 38-83 Lymph % 16.7 % Low 25-47 Mononuclear % 10.3 % High 1-9 Eosinophil % 1.0 % 0-6 Basophil % 0.8 % 0-2 Abs Lymphs 1.1 1.0-4.8 Abs Mononuclear 0.7 0-0.8 Absolute Neutrophil Count 4.6 1.5-7.7 Abs Eosinophils 0.1 0-0.6 Abs Basophils 0.1 0-0.2 22 1 LEFT LATERAL LOWER LEG 2 SEE RESULT BELOW Name: FATOUMATA CARROLL Seth : [address]: Silvestre Howard MD Acct: [id number] Unit: [id number] AGE: 86 Location: WOUND Re04/10/17 SEX: F Status: REG REF SPEC: [id number] JS: 04/10/17-[address] [facility] [address]: Silvestre Howard MD REQ: [id number] RECD: 04/10/17 STATUS: RES OTHR DR: Tyrel Sosa MD _ SOURCE: LEG,LEFT SPDESC: ORDERED: Culture Stain COMMENTS: LEFT LATERAL LOWER LEG Procedure Result Reported Site Wound/Misc Gram Stain Final 04/10/17- 1137 ML 2+ Epithelial Cells 2+ Neutrophils 1+ Gram Positive Cocci Wound/Misc Culture PENDING * ML - Main Lab . END OF REPORT DEPARTMENT OF PATHOLOGY, [address] [place] [address] Ruy Allison M.D. Director [facility] # [id number] F/U 4 SEE RESULTS BELOW [id number] EPIFIX 2X2 TRANSFUSED 03/27/17 0907 5 SEE RESULTS BELOW [id number] EPIFIX 2X2 TRANSFUSED 02/27/17 0950 6 SEE RESULT BELOW Name: FATOUMATA CARROLL : [address]: Silvestre Howard MD Acct: [id number] Unit: [id number] AGE: 86 Location: WOUND Re02/20/17 SEX: F Status: REG REF SPEC: [id number] JS: 02/20/17-[address] [facility] [address]: Silvestre Howard MD REQ: [id number] RECD: 02/20/17 STATUS: COMP [facility] DR: Tyrel Sosa MD _ SOURCE: WOUND SPDESC:LEFT LEG ORDERED: Culture Stain QUERIES: Specimen Description LT. LOWER LEG LACERATION Procedure Result Reported Site Wound/Misc Gram Stain Final 02/20/17- 1128 ML 1+ Nucleated Cells No Neutrophils Observed No Organisms Seen Wound/Misc Culture Final 02/22/17- 1353 ML Organism 1 MRSA Quantity 1+ Organism 2 FINEGOLDIA MAGNA Quantity 1+ Organism 3 NORMAL FRANCISCO J Quantity 1+ Consistent with previous results. Anaerobic sensitivities are not routinely performed. Positive isolates will be saved for one week. Please call the Microbiology Laboratory if susceptibility testing is needed. 1. MRSA M.I.C. RX --------- ------ Penicillin >=0.5 R Clindamycin <=0.25 S Erythromycin >=8 R Gentamicin <=0.5 S Linezolid 2 S CONTINUED ON NEXT PAGE * ML=Testing performed at Main Lab DEPARTMENT OF PATHOLOGY, [address] [place] [address] Ruy Allison M.DFrancisco SCHULTE # [id number] Patient: WENDYJORGEFRANCIFATOUMATA Seth [id number] (Continued) Specimen: [id number] Collected: 02/20/17 Received: 02/20/17 (Continued) Procedure Result Reported Site Wound/Misc Culture Final (continued) 02/22/17- 8060 1. MRSA (continued) M.I.C. RX --------- ------ Nitrofurantoin <=16 S Oxacillin >=4 R * Quinupristin/Dalfopristin 0.5 S Rifampin <=0.5 S Tetracycline <=1 S Doxycycline - Deduced S * Minocycline - Deduced S Trimethoprim/Sulfamethoxazole <=10 S Vancomycin 1 S Imipenem-Deduced R * Ampicillin/Sulbactam-Deduced R Cefazolin-Deduced R * These antibiotics are not available in the [facility] Formulary Contact the Microbiology Department for any additional antibiotic reporting. * ML - MAIN LAB ([facility]) . END OF REPORT * ML=Testing performed at Main Lab DEPARTMENT OF PATHOLOGY, [address] [place] [address] Ruy Allison M.D. Director [facility] # [id number] 7 SEE RESULTS BELOW [id number] EPIFIX 18 TRANSFUSED 02/13/17 1041 8 SEE RESULTS BELOW [id number] EPIFIX 18 TRANSFUSED 01/23/17 0847 9 SEE RESULTS BELOW [id number] EPIFIX 2X3 TRANSFUSED 12/26/16 0903 10 SEE RESULTS BELOW [id number] APLIGRAF TRANSFUSED 12/12/16 0805 11 SEE RESULTS BELOW [id number] APLIGRAF TRANSFUSED 12/05/16 0812 12 SEE RESULT BELOW Name: FATOUMATA CARROLL : [address]: Silvestre Howard MD Acct: [id number] Unit: [id number] AGE: 86 Location: WOUND Re11/14/16 SEX: F Status: REG REF SPEC: [id number] JS: 11/14/16-[address]: Silvestre Howard MD REQ: [id number] RECD: 11/14/16 STATUS: DIANELYS CASTAN[facility] DR: Tyrel Sosa MD _ SOURCE: LEG,LEFT SPDESC: ORDERED: Culture Stain Procedure Result Reported Site Wound/Misc Gram Stain Final 11/14/16- 1151 ML 1+ Epithelial Cells No Neutrophils Observed No Organisms Seen Wound/Misc Culture Final 11/16/16- 912 ML Organism 1 NORMAL FRANCISCO J Quantity 1+ * ML - MAIN LAB ([facility]) . END OF REPORT * ML=Testing performed at Main Lab DEPARTMENT OF PATHOLOGY, [address] [place] [address] Ruy Allison M.D. Director [facility] # [id number] 13 SEE RESULTS BELOW [id number] APLIGRAF TRANSFUSED 11/14/16 0856 14 SEE RESULTS BELOW [id number] APLIGRAF TRANSFUSED 11/07/16 0811 15 SEE RESULTS BELOW [id number] APLIGRAF TRANSFUSED 10/24/16 1134 16 Because ethnic data is not always readily available, this report includes an eGFR for both -Americans and non- Americans. The National Kidney Disease Education Program (NKDEP) does not endorse the use of the MDRD equation for patients that are not between the ages of 18 and 70, are , have extremes of body size, muscle mass, or nutritional status, or are non- or non-. According to the National Kidney Foundation, irrespective of diagnosis, the stage of the disease is based on the level of kidney function: Stage Description GFR(mL/min/1.73 m(2)) 1 Kidney damage with normal or decreased GFR 90 2 Kidney damage with mild decrease in GFR 60-89 3 Moderate decrease in GFR 30-59 4 Severe decrease in GFR 15-29 5 Kidney failure <15 (or dialysis) 17 Levels at the lower end of the range may be needed for symptomatic heart failure and levels at the higher end of the range for rate control. 18 Because ethnic data is not always readily available, this report includes an eGFR for both -Americans and non- Americans. The National Kidney Disease Education Program (NKDEP) does not endorse the use of the MDRD equation for patients that are not between the ages of 18 and 70, are , have extremes of body size, muscle mass, or nutritional status, or are non- or non-. According to the National Kidney Foundation, irrespective of diagnosis, the stage of the disease is based on the level of kidney function: Stage Description GFR(mL/min/1.73 m(2)) 1 Kidney damage with normal or decreased GFR 90 2 Kidney damage with mild decrease in GFR 60-89 3 Moderate decrease in GFR 30-59 4 Severe decrease in GFR 15-29 5 Kidney failure <15 (or dialysis) 19 Anion gap measurement may be of limited value in the presence of any alkalosis, especially in a combined acid base disorder. . 20 Note change in reference range as of 09/26/07. The change was based on recommendations from the [place] [employer]. 21 Please note change in reference range effective 07 . 22 Lymphopenia % Procedures Date CPT Code Description Status 04/10/2017 33795 EKG Tracing & Interpretation Completed 04/03/2017 75759 Removal Devitalization Tissue Wound Less Than Equal 20 Completed Square CM 03/27/2017 58712 Application Skin Substitute Graft Trunk,Arms Lets Up To Completed 100 SQ CM 03/20/2017 93544 Removal Devitalization Tissue Wound Less Than Equal 20 Completed Square CM 03/06/2017 38550 Removal Devitalization Tissue Wound Less Than Equal 20 Completed Square CM 02/27/2017 46141 Application Skin Substitute Graft Trunk,Arms Lets Up To Completed 100 SQ CM 02/20/2017 61633 Removal Devitalization Tissue Wound Less Than Equal 20 Completed Square CM 02/13/2017 27150 Application Skin Substitute Graft Trunk,Arms Lets Up To Completed 100 SQ CM 01/23/2017 24623 Application Skin Substitute Graft Trunk,Arms Lets Up To Completed 100 SQ CM 01/16/2017 64454 Removal Devitalization Tissue Wound Less Than Equal 20 Completed Square CM 01/02/2017 83744 Removal Devitalization Tissue Wound Less Than Equal 20 Completed Square CM 12/26/2016 29525 Application Skin Substitute Graft Trunk,Arms Lets Up To Completed 100 SQ CM 12/12/2016 15118 Application Skin Substitute Graft Trunk,Arms Lets Up To Completed 100 SQ CM 12/05/2016 54052 Application Skin Substitute Graft Trunk,Arms Lets Up To Completed 100 SQ CM 11/21/2016 17055 Removal Devitalization Tissue Wound Less Than Equal 20 Completed Square CM 11/14/2016 93648 Application Skin Substitute Graft Trunk,Arms Lets Up To Completed 100 SQ CM 11/07/2016 87137 Application Skin Substitute Graft Trunk,Arms Lets Up To Completed 100 SQ CM 10/31/2016 18524 Removal Devitalization Tissue Wound Less Than Equal 20 Completed Square CM 10/24/2016 95099 Application Skin Substitute Graft Trunk,Arms Lets Up To Completed 100 SQ CM 10/17/2016 40080 Removal Devitalization Tissue Wound Less Than Equal 20 Completed Square CM 10/10/2016 50316 Debridement Skin,& sq Tissue Completed 10/03/2016 09192 Removal Devitalization Tissue Wound Less Than Equal 20 Completed Square CM 09/26/2016 53656 Debridement Skin,& sq Tissue Completed 09/19/2016 02644 Debridement Skin,& sq Tissue Completed 08/24/2016 07906 EKG Tracing & Interpretation Completed 04/02/2016 64153 ECHO Transthorasic Realtime 2D W Doppler & Color Completed [facility] 02/02/2016 36864 ECHO Transthoracic, Real-Time 2D With Doppler And Color Completed Flow 01/18/2016 44580 Holter Monitor Review (24 hr)dr [facility] & mary Completed only 01/17/2016 30550 ECG Monitor/Recording W/Visual Superimposition Scanning Completed 01/12/2016 46881 EKG Tracing & Interpretation Completed 12/20/2015 67895 EKG Tracing & Interpretation Completed 05/14/2015 10379 EKG Tracing & Interpretation Completed 04/20/2015 52380 EKG Tracing & Interpretation Completed 04/13/2015 13634 EKG Tracing & Interpretation Completed 08/11/2014 77164 Holter Monitor Review (24 hr)[facility] Completed only 08/11/2014 33064 ECG Monitor/Recording W/Visual Superimposition Scanning Completed 08/04/2014 15424 Holter Monitor Review (24 hr)dr [facility] m[facility] Completed only 08/04/2014 45374 ECG Monitor/Recording W/Visual Superimposition Scanning Completed 07/22/2014 37286 ECHO Transthoracic, Real-Time 2D With Doppler And Color Completed Flow 07/03/2014 70538 EKG Tracing & Interpretation Completed 07/16/2013 71214 EKG Tracing & Interpretation Completed 07/11/2013 91155 ECHO Transthoracic, Real-Time 2D With Doppler And Color Completed Flow 11/15/2012 88473 EKG Tracing & Interpretation Completed 09/10/2012 58784 ECHO Transthoracic, Real-Time 2D With Doppler And Color Completed Flow 03/15/2012 06001 Holter Monitoring 24 HR New Completed 02/29/2012 54465 EKG Tracing & Interpretation Completed 12/13/2011 13402 EKG Tracing & Interpretation Completed 11/28/2011 44289 ECHO Transthoracic, Real-Time 2D With Doppler And Color Completed Flow 01/11/2011 44704 EKG Tracing & Interpretation Completed 01/06/2011 23706 ECHO Transthoracic, Real-Time 2D With Doppler And Color Completed Flow 01/12/2010 58080 EKG Tracing & Interpretation Completed 09/09/2008 00623 EKG Tracing & Interpretation Completed 08/21/2008 91514 Holter Monitor Interpretation Completed 03/12/2008 56968 EKG Tracing & Interpretation Completed 02/18/2008 40585 ECHO Stress Test Incl Perf Contiuous ekg Monitoring Completed W/Phys Superv 02/18/2008 45268 ECHO/Stress Completed 02/18/2008 10279 ECHO/Stress Completed 02/18/2008 54546 Color Doppler Completed 02/18/2008 62232 Pulse Doppler & Continuous Wave Completed 02/18/2008 92765 Echocardiogram Completed 02/18/2008 40042 ECHO Transthoracic, Real-Time 2D With Doppler And Color Completed Flow 02/18/2008 24649 ECHO Transthoracic, Real-Time 2D With Doppler And Color Completed Flow 02/18/2008 97317 Stress Test Completed 02/18/2008 34492 Stress Test Completed 01/24/2008 13128 Unlisted Cardiovascular Service Or Procedure Completed 01/21/2008 29321 EKG Tracing & Interpretation Completed 01/21/2008 61261 EKG Tracing & Interpretation Completed 07/24/2007 99110 EKG Tracing & Interpretation Completed 07/24/2007 71643 EKG Tracing & Interpretation Completed 01/21/2007 12337 EKG Tracing & Interpretation Completed 01/21/2007 60540 EKG Tracing & Interpretation Completed 07/30/2006 83377 EKG Tracing & Interpretation Completed 04/12/2006 05518 Stress Test Completed 04/12/2006 96513 Echocardiogram Completed 04/12/2006 25106 Pulse Doppler & Continuous Wave Completed 04/12/2006 54297 Pulse Doppler & Continuous Wave Completed 04/12/2006 90322 Color Doppler Completed 04/12/2006 28186 ECHO/Stress Completed 04/12/2006 29731 ECHO/Stress Completed 03/29/2006 23145 Event Monitor/Phys Review/Interp. Completed 03/29/2006 95030 Event Monitor/Phys Review/Interp. 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 Office Visit [facility]/02[facility]2016 [facility] 56194 G45.9 Hospitalists Alireza Hubbard,FACP I10 Office Visit 04/01/2016 11:09a [facility] Kalin Jones, 17067 G45.9 M.DFrancisco Office Visit 04/01/2016 10:12a [facility],les Bruno 79484 I63.59 Coco SERRANO M.D. I10 Office Visit 02/11/2016 10:30[place] [address] R00.2 R00.1 I35.1 I34.0 Office Visit 01/12/2016 11:30[place] [address] I10 I35.1 I34.0 R00.2 Office Visit 12/20/2015 11:20a [facility] Qutayb S. Erosydah, 49890 I10 M.D. I35.1 I34.0 R00.1 I44.0 I47.1 Office Visit 05/14/2015 9:30a [facility] [place] [address] R94.31 I10 Office Visit 04/20/2015 10:30[place] [facility] [place] [place] [address] R94.31 Office Visit 04/13/2015 10:40a [facility] Aarontayb S. Erosydah, 85861 I10 M.D. R00.2 I35.1 I34.0 R94.31 Office Visit 08/11/2014 11:00a [facility] [place] [address]KZS 401.1 785.1 424.1 424.0 427.0 427.89 Office Visit 07/03/2014 1:40p [facility] Aarontaybmyrna S. Erosydah, 86870 424.0 M.D. 424.1 401.1 794.31 780.4 427.89 Office Visit 11/04/2013 9:15a [facility] Elvira Aparicio, 76169 882.1 Of [facility] Office Visit 10/28/2013 11:00a [facility] Elvira Aparicio, 39058 882.1 Of [facility] Office Visit 07/16/2013 10:00a [facility] Aarontayb S. Erosydah, 65843 424.0 M.D. 424.1 401.1 794.31 397.0 Office Visit 11/15/2012 2:20p [facility] Qutaybeh S. Maghaydah, 46470 785.0 M.D. 424.0 424.1 401.1 Office Visit 04/15/2012 11:20a [facility] Qutaybeh S. Erosydah, 39342 785.1 M.D. 785.0 427.0 401.1 424.0 427.69 427.61 Office Visit 03/08/2012 1:30p [facility] [place] [address] 785.1 401.1 Office Visit 03/01/2012 8:40a [facility] Qutaybeh S. Maghaydah, 66490 785.1 M.D. 785.0 401.1 424.0 424.1 Office Visit 02/29/2012 4:00p [facility] [place] [address] 785.1 785.0 Office Visit 12/13/2011 2:20p [facility] Qutaybeh S. Maghaydah, 12731 401.1 M.D. 794.31 785.1 424.0 424.1 Office Visit 01/11/2011 2:20p [facility] Qutaybeh S. Maghaydah, 54652 401.1 M.D. 794.31 427.0 785.1 424.0 424.1 Office Visit 01/12/2010 3:40p [facility] Qutaybeh S. Maghaydah, 23540 401.1 M.D. 427.0 785.0 Office Visit 09/09/2008 11:00a [facility] Qutaybeh S. Maghaydah, 44404 785.1 M.D. 401.1 794.31 785.2 Office Visit 03/12/2008 9:20a [facility] Qutaybeh S. Maghaydah, 58822 427.0 M.D. 401.1 785.1 794.31 427.61 785.2 Office Visit 01/21/2008 9:10a [facility] Qutaybeh S. Maghaydah, 77591 401.1 M.D. 427.61 785.1 785.2 786.50 Office Visit 07/24/2007 10:20a [facility] Qutaybeh S. Maghaydah, 10303 401.1 M.D. 427.61 785.1 785.2 Office Visit 01/21/2007 11:20a [facility] Qutaybeh S. Maghaydah, 91963 401.1 M.D. 427.61 427.0 785.1 Office Visit 07/30/2006 11:20a [facility] Gladis Carreon, 25979 401.1 M.D. 427.61 427.0 785.2 Office Visit 04/24/2006 10:10a [facility] Gladis Carreon, 34864 401.1 M.D. 427.0 785.1 785.2 Office Visit 03/19/2006 10:20a [facility] Gladis Carreon, 04702 786.59 M.D. 785.0 785.2 785.1 Plan of Care Future Appointment(s):04/19/2017 2:15 pm - Nurse Visit IC at [facility]04/12/2017 11:15 am - Nurse Visit IC at [facility]2017 2:00 pm - Gladis Carreon M.D. 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 Please check your BP at home and let us know if systolic number is less than 90 or greater than 140.
[2017-04-12 13:14] VITALS: BP 123/56
--- NOTE | 2017-04-12 14:06 | RAD ---
Indication: Fall, right chest and right flank pain, right upper quadrant tenderness. CT of the chest, abdomen and pelvis was performed without oral or IV contrast administration. Coronal and sagittal reconstructed images were obtained. Inferior thyroid lobes demonstrate calcified nodule in the lower pole of the right lobe measuring at least 2.3 cm. Small precarinal lymph node measuring up to 7 mm is noted. No hilar adenopathy is noted. The heart demonstrates no pericardial effusion. Subcarinal lymph node measures up to 10 mm. The heart demonstrates no pericardial effusion. The trachea and major bronchi appear patent. The lung pack demonstrate airspace disease in the right middle lobe with some atelectasis. This is unchanged from December 22, 2014. No pleural fluid is identified. CT of the abdomen and pelvis demonstrates liver to be normal in size. No focal lesions or intrahepatic ductal dilatation is noted. The gallbladder demonstrates no calcified gallstones. The spleen is normal in size. No adrenal lesions are noted. The kidneys demonstrate no hydronephrosis. Atherosclerotic aorta is noted. No dilated loops of bowel are noted. No free fluid is noted. There is stool throughout the colon. Myomatous changes of the uterus is noted. Small bowel and shape no abnormal dilatation. Right rib fractures of the right 11th, 10th, ninth, eighth ribs are noted. There is some displacement noted. Overriding of the fracture fragments are noted. No evidence of intra-abdominal hematoma is noted. The remainder of the bony structures are otherwise unremarkable. IMPRESSION: Fractures of the right eighth, ninth, 10th and 11th ribs with mild comminution and overriding of the fracture fragments. No pneumothorax is noted. The abdomen and pelvis is grossly unremarkable although evaluation is limited due to lack of oral contrast. Airspace disease in the right middle lobe is not significantly changed or improved since December 22, 2014.
[2017-04-12] MEDS ORDERED: Ibuprofen TAB* 400 MG PO ONE (14:37)
--- NOTE | 2017-04-12 14:46 | UC ---
Horacio Wang Jennifer, scribed for Quirino Parker MD on 04/12/17 at 1318 . General HPI - HPI Summary HPI Summary: The pt is an 86 y/o female who presents with rib pain after she slipped and fell in the bathroom this morning. The pain is rated a 10/10. Raising her arm aggravates the pain, and she can feel the pain when she takes a deep breath. She denies syncope during the episode. She complains that her whole right side hurts. She is walking ok and denies wrist pain, neck pain, head pain, abdominal pain, problems with urination, and blood in the urine. She took two Advil this morning, but the pain is now worse at . - History of Current Complaint Stated Complaint: SIDE PAIN Time Seen by Provider: 04/12/17 13:06 Hx Obtained From: Patient Onset/Duration: Lasting Hours - This morning, Still Present, Worse Since Timing: Constant Onset Severity: Severe Current Severity: Severe Pain Intensity: 8 Associated Signs & Symptoms: Positive: Other - Right-sided rib pain and side pain. NEGATIVE: syncope, wrist pain, neck pain, head pain, abdominal pain, problems with urination, blood in the urine. - Allergy/Home Medications Allergies/Adverse Reactions: Allergies Allergy/AdvReac Type Severity Reaction Status Date / Time codeine Allergy Rash Verified 04/12/17 13:05 doxycycline Allergy Nausea Verified 04/12/17 13:05 epinephrine Allergy Palpitation Verified 04/12/17 13:05 s PMH/Surg Hx/FS Hx/Imm Hx Cardiovascular History: Hypertension Other Cardiovascular History: Palpitations Neurological History: TIA - Surgical History Surgical History: Yes Surgery Procedure, Year, and Place: Stom[place] [facility] [place] [facility] [place], [place], [facility]. right ear, 1984, formerly [facility]. 1985, right ear revision, formerly [facility]. cataracts, laser surgery both eyes ,squamous cell skin cancer - Family History Known Family History: Negative: Cardiac Disease, Hypertension, Diabetes - Social History Alcohol Use: Daily Alcohol Amount: 1 per day Substance Use Type: None Smoking Status (MU): Never Smoked Tobacco Have You Smoked in the Last Year: No - Immunization History Most Recent Tetanus Shot: 12/12 Review of Systems Cardiovascular: Other - Right sided rib pain Gastrointestinal: Negative - Abdominal pain Genitourinary: Negative - problems with urination, blood in the urine Musculoskeletal: Negative - Wrist pain, neck pain, head pain, Myalgia - Right side pain Neurological: Negative - Syncope All Other Systems Reviewed And Are Negative: Yes Physical Exam - Summary Physical Exam Summary: General: well-appearing, no pain distress Skin: warm, color reflects adequate perfusion, dry Head: normal Eyes: EOMI, ANGELITA ENT: normal Neck: supple, nontender Respiratory: Tender to palpation right lower lateral ribs. CTA, breath sounds present Cardiovascular: RRR Abdomen: soft, nontender Bowel: present Musculoskeletal: normal, strength/ROM intact Neurological: normal, sensory/motor intact, A&O x3 Psychological: affect/mood appropriate Triage Information Reviewed: Yes Vital Signs: Initial Vital Signs Temp 97.9 F 04/12/17 13:10 Pulse 69 04/12/17 13:10 Resp 16 04/12/17 13:10 BP 123/56 04/12/17 13:10 Pulse Ox 99 04/12/17 13:10 Vital Signs Reviewed: Yes Diagnostics - Laboratory Diagnostic Studies Completed/Ordered: Chest/Abd/Pel CT. Interpreted by a radiologist. IMPRESSION: Fractures of the right eighth, ninth, 10th and 11th ribs with mild comminution. and overriding of the fracture fragments. No pneumothorax is noted. The abdomen and pelvis is grossly unremarkable although evaluation is limited due to lack of oral contrast. Airspace disease in the right middle lobe is not significantly changed or improved since December 22, 2014. Dr. Parker has reviewed this report. Course/Dx - Course Course Of Treatment: Medications reviewed. Allergies noted. VSS IN CLINIC. REVIEWED THE RESULTS WITH THE PATIENT AND HER FRIEND. DISCUSSED GOING TO A TRAUMA CENTER FOR THE 4 RIB FRACTURES; THE PATIENT DECLINED. CALLED [facility] AND GOT A F/U APPOINTMENT FOR TOMORROW, 2:30 PM AT THE [employer] [facility]. WE DISCUSSED THE NEED FOR QUICK REEVALUATION IF HER SX WORSEN AT ALL; SHE IS TO GO TO THE ED WITH ANY WORSENING. - Differential Dx - Multi-Symptom Provider Diagnoses: RIGHT 8TH,9TH,10TH,11TH RIB FRACTURES Discharge - Discharge Plan Condition: Stable Disposition: HOME Patient Education Materials: Rib Fracture (ED) Referrals: Tyrel Sosa MD [Primary Care Provider] - Additional Instructions: FOLLOW UP WITH [facility] [place] [facility] ON [facility] TOMORROW, 04/13/17, AT 2:30PM. USE THE INCENTIVE SPIROMETER DIRECTED TO DECREASE THE RISK OF RESPIRATORY INFECTION. GO TO THE EMERGENCY DEPARTMENT FOR ANY WORSENING OF YOUR CONDITION; PAIN, SHORTNESS OF BREATH, YOU FEEL ILL, YOU FEEL LIGHT HEADED OR QUESTIONS OR CONCERNS. YOUR BLOOD PRESSURE WAS ELEVATED TODAY; FOLLOW UP WITH YOUR PRIMARY CARE DOCTOR WITHIN ONE WEEK. The documentation as recorded by the Horacio alexander Jennifer accurately reflects the service I personally performed and the decisions made by me, Quirino Parker MD.
== END 2017-04-12 14:50 | disposition home or self-care (01) ==
LOC: UCEAST 12:56
DX: S22.41XA Multiple fractures of ribs, right side, initial encounter for closed fracture (principal); W01.0XXA Fall on same level from slipping, tripping and stumbling without subsequent striking against object, initial encounter; Y93.9 Activity, unspecified; Y92.002 Bathroom of unspecified non-institutional (private) residence as the place of occurrence of the external cause; I10 Essential (primary) hypertension; R00.2 Palpitations; Z86.73 Personal history of transient ischemic attack (TIA), and cerebral infarction without residual deficits; Z88.1 Allergy status to other antibiotic agents; Z88.5 Allergy status to narcotic agent; Z88.8 Allergy status to other drugs, medicaments and biological substances
CPT/HCPCS: 71250; 74176; 99212; A9270-GY; G0463

== ENCOUNTER 2017-06-26 10:13 | Inpatient (IN) | payer MEDICARE, BC ==
[2017-06-26] MEDS ORDERED: NS 0.9% 500 ML* 500 ML IV ONE (11:06)
[2017-06-26 11:08] LABS: ABS Basophils 0.1 10^3/ul (0-0.2); ABS Eosinophils 0 10^3/ul (0-0.6); ABS Lymphocytes 0.8 10^3/ul (1.0-4.8); ABS Monocytes 0.6 10^3/ul (0-0.8); ABS Neutrophils 10.4 10^3/ul (1.5-7.7); ABS Nucleated RBC 0 10^3/ul; Eosinophil % 0.2 % (0-6); Hematocrit 22 % (35-47); Hemoglobin 7.1 g/dl (12.0-16.0); Lymphocyte % 6.4 % (25-47); Mean Corpuscular HGB Conc 33 g/dl (31-36); Mean Corpuscular Hemoglobin 30 pg (27-31); Mean Corpuscular Volume 90 fL (80-97); Mean Platelet Volume 6.7 um3 (7.4-10.4); Nucleated Red Blood Cells % 0; Platelet Count 378 10^3/ul (150-450); Red Cell Distribution Width 14 % (10.5-15); White Blood Count 11.8 10^3/ul (3.5-10.8)
[2017-06-26 11:28] LABS: EGFR Non-African American 54.6 (>60)
--- NOTE | 2017-06-26 11:45 | RAD ---
INDICATION: Weakness, fatigue. COMPARISON: April 12, 2017 CT. TECHNIQUE: Dual energy PA and routine lateral views of the chest were obtained. REPORT: Elevated lung volumes and rarefaction of the interstitial markings. Parenchymal consolidation at the anterior mid RIGHT lung zone is unchanged compared with the 2015 CT most consistent with scarring related to previous inflammation. Bilateral nipple shadows noted. Negative for pleural effusions or pneumothorax. The heart, pulmonary vasculature, and mediastinal contours are unremarkable. Multiple RIGHT rib fractures including the seventh, eighth, ninth, and 10th ribs with healing response. No definitive new rib fractures evident. Negative for free air beneath the diaphragm. IMPRESSION: 1. Stigmata of obstructive lung disease. 2. Chronic parenchymal scarring at the anterior RIGHT mid lung zone. 3. No acute pulmonary or cardiac process evident. 4. Multiple lateral RIGHT rib fractures with healing response. No new fractures or pneumothorax evident.
--- NOTE | 2017-06-26 12:43 | ED ---
Katarina Wang Gabriel, scribed for Senthil Martin MD on 06/26/17 at 1039 . Complex/Multi-Sys Presentation - HPI Summary HPI Summary: This patient is a 87 year old F BIBA to [facility] c/o weakness that began this morning upon waking up. Patient reports neck pain. Patient denies cough, fever, VERGARA, ABD pain, n/v/d, CP, and SOB. - History Of Current Complaint Time Seen by Provider: 06/26/17 10:30 Hx Obtained From: Patient Onset/Duration: Lasting Hours, Still Present Timing: Constant Severity Currently: Mild Severity Initially: Mild Associated Signs And Symptoms: Positive: Weakness - Allergies/Home Medications Allergies/Adverse Reactions: Allergies Allergy/AdvReac Type Severity Reaction Status Date / Time codeine Allergy Rash Verified 06/26/17 10:37 doxycycline Allergy Nausea Verified 06/26/17 10:37 epinephrine Allergy Palpitation Verified 06/26/17 10:37 s Home Medications: Home Medications Aspirin EC TAB* [Ecotrin EC TAB*] 325 mg PO DAILY 06/26/17 [History Confirmed ] Meloxicam(NF) [Mobic(NF)] 15 mg PO DAILY 06/26/17 [History Confirmed 06/26/17] Vit C/E/Zn/Coppr/Lutein/Zeaxan [Preservision Areds 2 Softgel] 1 cap PO BID 06/26 [History Confirmed 06/26/17] PMH/Surg Hx/FS Hx/Imm Hx Endocrine/Hematology History: Denies: Hx Diabetes, Hx Thyroid Disease Cardiovascular History: Reports: Hx Hypertension - ON MEDS, 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, Other Cardiovascular Problems/Disorders - HX TACHYCARDIA Respiratory History: Denies: Hx Asthma, Hx Chronic Obstructive Pulmonary Disease (COPD) GI History: Reports: Hx Irritable Bowel - POSSIBLE Denies: Hx Ulcer History: Denies: Hx Dialysis, Hx Renal Disease Musculoskeletal History: Reports: Hx Arthritis - HANDS Sensory History: Reports: Hx Cataracts - ARABELLA, Hx Contacts or Glasses - GLASSES, Hx Hearing Aid - LEFT EAR Opthamlomology History: Reports: Hx Cataracts - ARABELLA, Hx Contacts or Glasses - GLASSES Psychiatric History: Denies: Hx of Violent Episodes Against Others - Cancer History Cancer Type, Location and Year: SKIN Hx Chemotherapy: No Hx Radiation Therapy: No - Surgical History Surgery Procedure, Year, and Place: Stomach surgery, [place] divert[place]um[place] [facility] [place], [place], [facility] [place]. [facility], right ear revision, [facility]. cataracts, laser surgery both eyes ,squamous cell skin cancer Hx Anesthesia Reactions: No - Immunization History Date of Tetanus Vaccine: utd Date of Influenza Vaccine: fall 2015 Infectious Disease History: Denies: Hx Clostridium Difficile, Hx Hepatitis, Hx Human Immunodeficiency Virus (HIV), Hx of Known/Suspected MRSA, Hx Shingles, Hx Tuberculosis, Hx Known/ Suspected VRE, Hx Known/Suspected VRSA, History Other Infectious Disease - Family History Known Family History: Negative: Cardiac Disease, Hypertension, Diabetes - Social History Alcohol Use: Daily Alcohol Amount: 1 per day Substance Use Type: Reports: None Smoking Status (MU): Never Smoked Tobacco Have You Smoked in the Last Year: No Review of Systems Negative: Fever Negative: Chest Pain Negative: Shortness Of Breath, Cough Negative: Abdominal Pain, Vomiting, Diarrhea, Nausea Positive: Other - neck pain Positive: Weakness. Negative: Headache All Other Systems Reviewed And Are Negative: Yes Physical Exam - Summary Physical Exam Summary: VITAL SIGNS: Reviewed. GENERAL: Patient is an elderly fragilefemale who is lying comfortable in the stretcher. Patient is not in any acute respiratory distress. No significant distress HEAD AND FACE: No signs of trauma. No ecchymosis, hematomas or skull depressions. No sinus tenderness. EYES: PERRLA, EOMI x 2, No injected conjunctiva, no nystagmus. EARS: Hearing grossly intact. Ear canals and tympanic membranes are within normal limits. MOUTH: Oropharynx within normal limits. NECK: Supple, trachea is midline, no adenopathy, no JVD, no carotid bruit, no c- spine tenderness, neck with full ROM. CHEST: Symmetric, no tenderness at palpation LUNGS: Clear to auscultation bilaterally. No wheezing or crackles. CVS: Regular rate and rhythm, S1 and S2 present, no murmurs or gallops appreciated. ABDOMEN: Soft, non-tender. No signs of distention. No rebound no guarding, and no masses palpated. Bowel sounds are normal. EXTREMITIES: FROM in all major joints, no edema, no cyanosis or clubbing. NEURO: Alert and oriented x 3. No acute neurological deficits. Speech is normal and follows commands. SKIN: Dry and warm, healed wound in LLE Rectal: there are multiple external hemorrhoids, no gross blood or melena. Triage Information Reviewed: Yes Vital Signs On Initial Exam: Initial Vitals Pulse BP Pulse Ox 75 83/49 100 06/26/17 10:27 06/26/17 10:27 06/26/17 10:27 Vital Signs Reviewed: Yes Diagnostics - Vital Signs Vital Signs Temp Pulse Resp BP Pulse Ox 06/26/17 11:00 65 14 100 06/26/17 10:57 66 11 99/40 99 06/26/17 10:55 104 11 99/45 100 06/26/17 10:53 94 15 100/46 98 06/26/17 10:51 61 10 102/42 100 06/26/17 10:31 96.9 F 72 18 83/49 100 06/26/17 10:27 75 83/49 100 - Laboratory Lab Results: Lab Results 06/26/17 06/26/17 06/26/17 Range/Units 10:59 10:59 10:59 WBC 11.8 H (3.5-10.8) 10^3/ul RBC 2.40 L (4.0-5.4) 10^6/ul Hgb 7.1 L (12.0-16.0) g/dl Hct 22 L (35-47) % MCV 90 (80-97) fL MCH 30 (27-31) pg MCHC 33 (31-36) g/dl RDW 14 (10.5-15) % Plt Count 378 (150-450) 10^3/ul MPV 6.7 L (7.4-10.4) um3 Neut % (Auto) 88.3 H (38-83) % Lymph % (Auto) 6.4 L (25-47) % [place] % (Auto) 4.7 (0-7) % Eos % (Auto) 0.2 (0-6) % Baso % (Auto) 0.4 (0-2) % Absolute Neuts (auto) 10.4 H (1.5-7.7) 10^3/ul Absolute Lymphs (auto) 0.8 L (1.0-4.8) 10^3/ul Absolute Monos (auto) 0.6 (0-0.8) 10^3/ul Absolute Eos (auto) 0 (0-0.6) 10^3/ul Absolute Basos (auto) 0.1 (0-0.2) 10^3/ul Absolute Nucleated RBC 0 10^3/ul Nucleated RBC % 0 Sodium 135 L (139-145) mmol/L Potassium 4.4 (3.5-5.0) mmol/L Chloride 102 (101-111) mmol/L Carbon Dioxide 30 (22-32) mmol/L Anion Gap 3 (2-11) mmol/L BUN 35 H (6-24) mg/dL Creatinine 0.97 H (0.51-0.95) mg/dL Est GFR ( Amer) 70.2 (>60) Est GFR (Non-Af Amer) 54.6 (>60) BUN/Creatinine Ratio 36.1 H (8-20) Glucose 107 H (70-100) mg/dL Lactic Acid 1.8 (0.5-2.0) mmol/L Calcium 8.2 L (8.6-10.3) mg/dL Magnesium 2.0 (1.9-2.7) mg/dL Total Bilirubin 0.20 (0.2-1.0) mg/dL AST 23 (13-39) U/L ALT 20 (7-52) U/L Alkaline Phosphatase 140 H (34-104) U/L Total Creatine Kinase 74 (10-223) U/L Troponin I 0.00 (<0.04) ng/mL C-Reactive Protein 3.63 (< 5.00) mg/L B-Natriuretic Peptide ( - 100) pg/mL Total Protein 4.8 L (6.4-8.9) g/dL Albumin 2.3 L (3.2-5.2) g/dL Globulin 2.5 (2-4) g/dL Albumin/Globulin Ratio 0.9 L (1-3) TSH 3.93 (0.34-5.60) mcIU/mL 06/26/17 Range/Units 10:59 WBC (3.5-10.8) 10^3/ul RBC (4.0-5.4) 10^6/ul Hgb (12.0-16.0) g/dl Hct (35-47) % MCV (80-97) fL MCH (27-31) pg MCHC (31-36) g/dl RDW (10.5-15) % Plt Count (150-450) 10^3/ul MPV (7.4-10.4) um3 Neut % (Auto) (38-83) % Lymph % (Auto) (25-47) % [place] % (Auto) (0-7) % Eos % (Auto) (0-6) % Baso % (Auto) (0-2) % Absolute Neuts (auto) (1.5-7.7) 10^3/ul Absolute Lymphs (auto) (1.0-4.8) 10^3/ul Absolute Monos (auto) (0-0.8) 10^3/ul Absolute Eos (auto) (0-0.6) 10^3/ul Absolute Basos (auto) (0-0.2) 10^3/ul Absolute Nucleated RBC 10^3/ul Nucleated RBC % Sodium (139-145) mmol/L Potassium (3.5-5.0) mmol/L Chloride (101-111) mmol/L Carbon Dioxide (22-32) mmol/L Anion Gap (2-11) mmol/L BUN (6-24) mg/dL Creatinine (0.51-0.95) mg/dL Est GFR ( Amer) (>60) Est GFR (Non-Af Amer) (>60) BUN/Creatinine Ratio (8-20) Glucose (70-100) mg/dL Lactic Acid (0.5-2.0) mmol/L Calcium (8.6-10.3) mg/dL Magnesium (1.9-2.7) mg/dL Total Bilirubin (0.2-1.0) mg/dL AST (13-39) U/L ALT (7-52) U/L Alkaline Phosphatase (34-104) U/L Total Creatine Kinase (10-223) U/L Troponin I (<0.04) ng/mL C-Reactive Protein (< 5.00) mg/L B-Natriuretic Peptide 199 H ( - 100) pg/mL Total Protein (6.4-8.9) g/dL Albumin (3.2-5.2) g/dL Globulin (2-4) g/dL Albumin/Globulin Ratio (1-3) TSH (0.34-5.60) mcIU/mL Result Diagrams: 06/26/17 10:59 06/26/17 10:59 Lab Statement: Any lab studies that have been ordered have been reviewed, and results considered in the medical decision making process. - Radiology CXR Radiology Interpretation Completed By: Radiologist - 1. Stigmata of obstructive lung disease. 2. Chronic parenchymal scarring at the anterior RIGHT mid lung zone. 3. No acute pulmonary or cardiac process evident. 4. Multiple lateral RIGHT rib fractures with healing response. No new fractures or pneumothorax evident. ED physician has reviewed this radiology report. - EKG 1030 Cardiac Rate: NL EKG Rhythm: Sinus Rhythm - at 77 BPM EKG Interpretation: No ST elevations Complex Multi-Symp Course/Dx Assessment/Plan: This patient is a 87-year-old female who presents to the emergency department with a chief complaint of weakness. She denies any headache, she has neck pain, denies any chest pain shortness of breath or palpitations. She denies any fever or chills. She denies any abdominal pain nausea vomiting diarrhea. She has no UTI symptoms. Patient had positive orthostatics therefore the patient was getting IV fluids. It is gentle fluids since the patient has history of CHF and return extremity edema. Blood tests are social as well as account of 11.8, hemoglobin of 7.1 hematocrit of 22. BUN/ creatinine 35 creatinine of 0.97, calcium 8.2 total protein 4.8 and albumin 2.3. BNP is 199. Negative occult blood. Chest x-ray impression, and has stigmata for obstructive lung disease, chronic parenchymal scarring. Multiple left right rib fractures with healing response. No new fractures or pneumothorax. I believe that her symptoms are secondary to the anemia that is what the patient is only complaining of fatigue and weakness. I discuss my physical exam, findings and test results with Dr. Puga from the hospitalist services and he agrees to admit patient to his services. Patient is hemodynamically stable alert and oriented x 3. - Diagnoses Provider Diagnoses: Symptomatic anemia - Physician Notifications Discussed Care Of Patient With: Jaqueline Puga Time Discussed With Above Provider: 12:26 Instructed by Provider To: Admit As Inpatient Discharge - Sign-Out/Discharge Documenting (check all that apply): Discharge/Admit/Transfer - admitted - Discharge Plan Condition: Fair Disposition: ADMITTED TO [facility] Referrals: Tyrel Sosa MD [Primary Care Provider] - - Billing Disposition and Condition Condition: FAIR Disposition: [facility] The documentation as recorded by the Katarina alexander Gabriel accurately reflects the service I personally performed and the decisions made by me, Senthil Martin MD.
[2017-06-26] MEDS ORDERED: Pantoprazole IV* 40 MG IV ONE (13:43)
[2017-06-26] MEDS ORDERED: NS 0.9% 1000 ML* 1,000 ML IV SCH (13:45)
[2017-06-26] MEDS: Pantoprazole IV* 80 MG in NS 0.9% 250 ML* 250 ML IVPB SCH (15:03)
[2017-06-26 20:08] LABS: Hematocrit 23 % (35-47); Hemoglobin 7.8 g/dl (12.0-16.0)
--- NOTE | 2017-06-26 21:47 | HP ---
CC: Dr. Sosa; Dr. Quesada * HISTORY AND PHYSICAL: DATE OF ADMISSION: 06/26/17 TIME OF EVALUATION: 1:15 p.m. PRIMARY CARE PROVIDER: Dr. Sosa. CONSULTING MEDICAL INSURANCE CLERK: Dr. Quesada. CHIEF COMPLAINT: "I am weak." HISTORY OF PRESENT ILLNESS: Ms. Carroll is an 87-year-old lady with a past medical history of hypertension, TIA, who presented to the emergency room with complaints of weakness. She is somewhat of a vague historian, but initially she tells me that overnight she had to wake up twice to go to the bathroom and around 8 o'clock she got up to go again, sat on the toilet and then was unable to stand up. She stated that she tried twice and her whole body was shaking and she could not get up. A friend was in her apartment to pick her up for an appointment and called for help. The patient states she also had some neck pain associated with the weakness and for that reason she was sent to the emergency room for further evaluation. On further questioning, it is apparent that the patient has had progressive decline of her condition since she had her TIA in March 2016. 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 The patient states that she is currently constipated, but denies any black stools. When asked if she has any stomach pain, she states that she does not have pain but does have some abdominal discomfort that she cannot pinpoint. She denies anorexia, but states that she has been eating less because she is afraid of gaining weight as she is not as active as she was before. She denies having any black stools. She denies dizziness, lightheadedness, palpitations. Her daughter states that she looked very pale when she came to the emergency room today, but now she has more color. PAST MEDICAL HISTORY: 1. Hypertension. 2. TIA in March 2016. PAST SURGICAL HISTORY: 1. The patient has a gastric diverticular surgery. 2. Status post cataract surgery. 3. Status post left inguinal hernia repair. MEDICATIONS: 1. Aspirin 325 mg p.o. daily. 2. Meloxicam 15 mg p.o. daily. 3. PreserVision AREDS2 one capsule p.o. b.i.d. ALLERGIES: No known drug allergies. FAMILY HISTORY: Father of renal cell carcinoma and mother of CHF. SOCIAL HISTORY: There is no history of tobacco, alcohol, or drug use. She now resides at [place] and surrogate decision maker is her daughter, Rachael Terrazas, phone number is [phone]. PHYSICAL EXAMINATION GENERAL: The patient is an elderly pale lady, lying in the ED stretcher in no acute distress. VITAL SIGNS: Temperature 96.9, heart rate is 64, respiratory rate is 14, oxygen saturation is 100% on room air, and blood pressure is 99/40. HEENT: Pupils are equal. Moist pale mucous membranes. CHEST: Breath sounds present bilaterally with no added sounds. CVS: Normal S1 and S2. Regular rate and rhythm. ABDOMEN: Soft, nontender, and nondistended. Bowel sounds are present. EXTREMITIES: No edema. The patient has a clean dressing to the left lower extremity wound. NEUROLOGIC: She is alert and oriented x3. Able to move all 4 extremities. Face is symmetric. Power is equal bilaterally. LABORATORY AND IMAGING DATA: The patient had a CBC that showed WBC of 11.8, hemoglobin of 7.1, hematocrit of 22, platelets of 378,000 with 88% neutrophils. Her last hemoglobin was 11.3 in September last year and 12.5 in March. Chemistry showed sodium of 135, potassium of 4.4, chloride of 102, bicarb of 30 , BUN of 35 (last one was 14 in September), and creatinine of 0.97. Glucose is 107 , lactic acid 1.8, calcium of 8.2, magnesium of 2.0. LFTs were normal except for an alk phos of 140. Troponin is 0. BNP is 199. TSH is 3.9. Stool for occult blood was negative. Chest x-ray showed stigmata of obstructive lung disease, chronic parenchymal scarring at the anterior right mid lung zone. No acute pulmonary cardiac process evident. There are multiple lateral right rib fractures with healing. No new fractures or pneumothorax is evident. EKG done on 06/26/17 at 10:30 a.m. showed sinus rhythm at 77 beats per minute with no ST-T changes, but the patient has Q-waves in 2, 3, and aVF. These are new when compared to her prior EKG from March. ASSESSMENT AND PLAN: Mrs. Carroll is an 87-year-old lady with a past medical history of hypertension, transient ischemic attack that presented to the emergency room with complaints of weakness, found to have asymptomatic anemia. 1. Symptomatic anemia. The patient's hemoglobin has dropped from 12.5 in March 2016 to 7.1 today. The patient and her daughter cannot pinpoint exactly when the changes started, but this is just a progressive small blood loss that more recently became symptomatic. She is on full dose aspirin and takes meloxicam daily. Her BUN is elevated and this suggests an upper GI bleed as the source. She will be admitted to the telemetry floor. We are going to transfuse 1 PRBC and monitor her. 2. Probable upper GI bleed. The patient will be started on a Protonix drip. She will be on a clear liquid diet in preparation for endoscopy. A consult was requested with Dr. Quesada. 3. Transient ischemic attack. I am going to continue the patient on aspirin 81 mg. She has no neurological symptoms at this time. 4. Hypertension. The patient is not on any medications as outpatient and her blood pressure is on the lower side at this time likely secondary to her symptomatic anemia. We will continue to monitor and she will receive gentle IV hydration. 5. DVT prophylaxis. The patient has a score of 3 on the DVT prophylaxis risk assessment guide and pharmacological prophylaxis is contraindicated in the setting of a possible GI bleed, so she will have SCDs. 6. Code status was confirmed with the patient and her daughter, and she is a Do Not Resuscitate. Her MOLST form was updated. TIME SPENT: Approximately 55 minutes were spent with the patient and family interview, medial records review, physical examination to complete the admission , more than half of this time was spent [id number] with the patient in coordination of care. [id number]/[facility] #: [id number] JUN
--- NOTE | 2017-06-27 01:22 | CONS ---
GASTROENTEROLOGY CONSULT: DATE: 06/26/17 CONSULTING PHYSICIAN: MICHAEL Durán and Tyrel Sosa [facility] REASON FOR CONSULTATION: Profound anemia in a woman taking a coated adult aspirin and meloxicam chronically. HISTORY OF PRESENT ILLNESS: This 87-year-old woman came to the emergency room with weakness. She denies any particular pain. She was found to have a slightly very low blood pressure, 83/49 with a pulse of 65. IV fluids were started. Her hemoglobin was 7.1, hematocrit 22, MCV 90. She denies any history of vomiting or black stools. She has been having some upper abdominal distress and taking Tums. She cannot remember how long. She does recall having abdominal distress a few years back and taking a prescription , but is unsure of the name of it. She apparently had surgery on her stomach for diverticulum some (?30) years ago (in a recent H+P). Those old records will be retrieved if possible . She takes the adult aspirin because of TIA suffered in March 2016. A month ago, she fell in the bathroom and fractured multiple right ribs 9-12. It is unclear when the meloxicam was started, though she states it was for carpal tunnel syndrome. She denies ever being on iron in the past. PAST MEDICAL HISTORY: 1. TIA Mar 2016 2. Rib fractures. 3. Increasing falls. 4. History of colon cancer in the family - she has had multiple colonoscopies generally negative. SOCIAL HISTORY: She lives alone at [place] where she moved just a month ago. She is a nonsmoker, nondrinker. REVIEW OF SYSTEMS: She had upper endoscopy by Dr Morales in 1999 with evidence of a pyloroplasty seen. He placed her on Prevacid. No history of syncope, palpitations, SC, valvular disease, hepatitis, TB, hemoptysis or rectal bleeding. DIAGNOSTIC STUDIES/LAB DATA: Hemoglobin 7.1, hematocrit 22, MCV 90, platelets 378, BUN 35, creatinine 0.97. Stool Hemoccult negative, iron 69, TIBC 354, saturation 19%, ferritin 26.3, LFTs normal except alkaline phosphatase 140. Vitamin B12 of 654, TSH 3.93. IMPRESSION AND PLAN: This 87-year-old woman taking aspirin and meloxicam concurrently, presents weak and with profound anemia although, it is normochromic with an MCV of 90 and she is heme negative. Her BUN is elevated and she has been followed closely over the years with colonoscopies. Upper endoscopy will be elected. [id number]/[facility] #: [id number] JUN
[2017-06-27] MEDS: Pantoprazole IV* 80 MG in NS 0.9% 250 ML* 250 ML IVPB SCH ×2 (01:28→10:14)
[2017-06-27 06:39] LABS: ABS Basophils 0.1 10^3/ul (0-0.2); ABS Eosinophils 0.1 10^3/ul (0-0.6); ABS Lymphocytes 1.2 10^3/ul (1.0-4.8); ABS Monocytes 0.6 10^3/ul (0-0.8); ABS Neutrophils 4.8 10^3/ul (1.5-7.7); ABS Nucleated RBC 0 10^3/ul; Eosinophil % 1.2 % (0-6); Hematocrit 22 % (35-47); Hemoglobin 7.6 g/dl (12.0-16.0); Lymphocyte % 17.8 % (25-47); Mean Corpuscular HGB Conc 35 g/dl (31-36); Mean Corpuscular Hemoglobin 31 pg (27-31); Mean Corpuscular Volume 89 fL (80-97); Mean Platelet Volume 6.9 um3 (7.4-10.4); Nucleated Red Blood Cells % 0; Platelet Count 346 10^3/ul (150-450); Red Blood Count 2.42 10^6/ul (4.0-5.4); Red Cell Distribution Width 14 % (10.5-15); White Blood Count 6.7 10^3/ul (3.5-10.8)
[2017-06-27 06:53] LABS: EGFR Non-African American 69.2 (>60)
[2017-06-27] MEDS ORDERED: Midazolam* 1 MG/ML 10 ML VIAL (10 MG) ONE (07:03)
[2017-06-27] MEDS ORDERED: fentaNYL* 50 MCG/ML 2 ML VIAL (100 MCG VIAL) ONE (07:03)
[2017-06-27] MEDS ORDERED: Aspirin EC TAB* 81 MG TAB.EC PO SCH (09:00)
[2017-06-27] MEDS: Omeprazole CAP* 20 MG PO SCH ×2 (11:16→21:08)
--- NOTE | 2017-06-27 15:30 | PN ---
Subjective Date of Service: 06/27/17 Interval History: HOSPITALIST PROGRESS NOTE Patient seen and examined at bedside. Care reviewed and d/w Di Valenzuela RN. She feels better today. Denies abdominal pain, nausea, vomiting. Had just returned from her EGD when I saw her, so unable to tell me about her energy level. Family History: Unchanged from Admission Social History: Unchanged from Admission Past Medical History: Unchanged from Admission Objective Active Medications: Acetaminophen (Tylenol Tab*) 650 mg PO Q6H PRN PRN Reason: pain/fever Omeprazole (Prilosec Cap*) 40 mg PO BID KANCHAN Last Admin: 06/27/17 11:16 Dose: 40 mg Vital Signs - 8 hr 06/27/17 06/27/17 10:11 14:32 Temperature 97.4 F 98.9 F Pulse Rate 66 80 Respiratory 14 16 Rate Blood Pressure 110/58 111/44 (mmHg) O2 Sat by Pulse 100 100 Oximetry Oxygen Devices in Use Now: None Appearance: Pleasant elderly lady lying in bed in NAD. Eyes: No Scleral Icterus Ears/Nose/Mouth/Throat: Mucous Membranes Moist - and pale Neck: Trachea Midline Respiratory: Symmetrical Chest Expansion and Respiratory Effort, Clear to Auscultation Cardiovascular: RRR - Normal S1 and S2 Abdominal: NL Sounds; No Tenderness; No Distention Extremities: No Edema Neurological: Alert and Oriented x 3, NL Muscle Strength and Tone Result Diagrams: 06/27/17 06:22 06/27/17 06:22 Assess/Plan/Problems-Billing Assessment: Mrs. Carroll is an 87yo F with PMH of HTN, TIA 03/24, who presented to ED with c/o fatigue, weakness, found to have symptomatic anemia. - Patient Problems (1) Symptomatic anemia Comment: - Hb 7.6 today - will transfuse one more 1 PRBC. Goal Hb~8. (2) GI bleed Comment: - EGD showed large gastric ulcer with stigmata of bleeding. - Dr. Quesada recommended holding ASA for 5 days due to high risk of bleeding, PPI BID for 2 weeks and then once a day, and to discontinue NSAIDS. (3) DVT prophylaxis Comment: - SCDs. (4) DNR (do not resuscitate) Status and Disposition: Inpatient for management of symptomatic anemia and gastric ulcer.
[2017-06-27 15:58] LABS: Hematocrit 23 % (35-47); Hemoglobin 7.8 g/dl (12.0-16.0)
--- NOTE | 2017-06-27 19:12 | PN ---
Hospitalist Progress Note Date of Service: 06/27/17 Cat call placed by nursing staff at change of shift for syncope. Pt was on way to the bathroom with RN when she passed flatus twice and had loc in RN arms. Pt remembers getting up to use restroom. She denies chest pain and denies sob. States her name and location and time. Denies abdominal pain now. States she felt lightheaded. Lungs cta, heart sounds s1 s2 RRR no murmurs heard. Received one unit for low h and h today. BP 123/70 hr 74 resp rate 18 o2 sat 100 percent. Assessment: suspect vasovagal syncope, however given recent GI bleed, will check cbc, ekg stable shows NSR rate [address] changes, will start ivf, vital signs q1h for 4 hours,
[2017-06-27 19:22] LABS: Hematocrit 18 % (35-47); Hemoglobin 6.1 g/dl (12.0-16.0); Mean Corpuscular HGB Conc 34 g/dl (31-36); Mean Corpuscular Hemoglobin 31 pg (27-31); Mean Corpuscular Volume 89 fL (80-97); Mean Platelet Volume 6.8 um3 (7.4-10.4); Platelet Count 302 10^3/ul (150-450); Red Cell Distribution Width 14 % (10.5-15); White Blood Count 10.3 10^3/ul (3.5-10.8)
[2017-06-27] MEDS: NS 0.9% 1000 ML* 1,000 ML IV SCH (19:32)
[2017-06-27 20:03] LABS: ABS Basophils 0.1 10^3/ul (0-0.2); ABS Eosinophils 0 10^3/ul (0-0.6); ABS Lymphocytes 1.2 10^3/ul (1.0-4.8); ABS Monocytes 0.8 10^3/ul (0-0.8); ABS Neutrophils 8.2 10^3/ul (1.5-7.7); ABS Nucleated RBC 0 10^3/ul; Eosinophil % 0.4 % (0-6); Lymphocyte % 11.5 % (25-47); Nucleated Red Blood Cells % 0.1
[2017-06-27] MEDS ORDERED: NS 0.9% 1000 ML* 1,000 ML IV ONE ×2 (23:00→23:34)
--- NOTE | 2017-06-28 00:07 | PN ---
Hospitalist Progress Note Date of Service: 06/27/17 2320 called to come see patient. Patient passed large black stool and became dizzy and lightheaded. Patient nurse had tried ambulating patient to have a BM. Pt had large black stool. Bp 109/70 HR 90 up from 70's. Concern for active bleeding given decrease in h and h and symptomatic anemia. I have ordered another unit of prbc for a total of three placed pn PPI drip. giving one liter bolus and transfer to icu, no complaints of chest pain or sob. Updated family and attending. Also will make npo and place on bedrest for now. Called GI as well plan for fluids, blood and if starts vomiting blood GI to be updated for possible emergent EGD.
[2017-06-28] MEDS: Pantoprazole IV* 80 MG in NS 0.9% 250 ML* 250 ML IVPB SCH ×3 (00:14→20:36)
[2017-06-28] MEDS ORDERED: PROCHLORPERAZINE INJ 5 MG/ML 2 ML VIAL IV PRN (00:27)
[2017-06-28] MEDS: NS 0.9% 1000 ML* 1,000 ML IV SCH ×2 (00:32→09:32)
--- NOTE | 2017-06-28 05:47 | PRO ---
DATE: 06/27/17 - ROOM #ICU-06 REFERRING PHYSICIAN: Tyrel Sosa * PROCEDURE: Upper gastrointestinal endoscopy and CLOtest INDICATION: This 87-year-old woman taking an adult aspirin and chronic meloxicam presented with hemoglobin of 7.1. Her stool was heme negative. She has had some dyspeptic complaints. Overnight, she has been stable. She was transfused 1 unit. There has been no emesis and no stool. ENDOSCOPIST: Dr. Quesada. MEDICATIONS: Midazolam 2, fentanyl 37.5. FINDINGS: She is an elderly woman, somewhat frail but alert and quite cooperative. EGD: Larynx - narrow symmetric views. Esophagus - easily entered. The mucosa is normal in the upper, mid, and lower esophagus with the EG junction some-what loose at 38, though there were no erosions and no Michael's change. There is a small hiatal hernia. There is no stricture, though the mucosa does take on a minimally ringed appearance in the distal few centimeters. Stomach - generally normal mucosa in the cardia, fundus, body, and proximal antrum. A CLOtest was taken. At the pylorus there was an ulcer, which after dispersing salivary bubbles was revealed to be two third circumferential, rather deep, chronic and broad. There were some red spots appearing to be stigmata bleeding, though there was no actual clot or blood present. It appeared quite chronic and extensive. The pylorus was not scarred shut and was actually somewhat wide open. Duodenum - the bulb and second through fourth portions appear normal. IMPRESSION: Pyloric channel ulcer - large and with moderate risk of bleeding. Would treat with double dose PPI for 2 weeks and then once a day. A baby aspirin could be restarted in 2 to 3 weeks. Addendum: CLotest negative [id number]/[facility] #: [id number] [facility]
[2017-06-28 06:36] LABS: ABS Basophils 0.1 10^3/ul (0-0.2); ABS Eosinophils 0 10^3/ul (0-0.6); ABS Lymphocytes 1.1 10^3/ul (1.0-4.8); ABS Monocytes 1.5 10^3/ul (0-0.8); ABS Nucleated RBC 0 10^3/ul; Eosinophil % 0 % (0-6); Hematocrit 23 % (35-47); Lymphocyte % 4.9 % (25-47); Mean Corpuscular HGB Conc 35 g/dl (31-36); Mean Corpuscular Hemoglobin 31 pg (27-31); Mean Corpuscular Volume 89 fL (80-97); Mean Platelet Volume 7.1 um3 (7.4-10.4); Nucleated Red Blood Cells % 0; Platelet Count 225 10^3/ul (150-450); Red Blood Count 2.59 10^6/ul (4.0-5.4); Red Cell Distribution Width 14 % (10.5-15); White Blood Count 21.7 10^3/ul (3.5-10.8)
[2017-06-28 06:50] LABS: EGFR Non-African American 70.2 (>60)
[2017-06-28] MEDS: PTO:Multivitamins/Minerals AREDS2 cap PO SCH ×2 (09:27→22:07)
[2017-06-28] MEDS ORDERED: NS 0.9% 500 ML* 500 ML IV ONE (09:58)
[2017-06-28 10:35] LABS: Hematocrit 21 % (35-47); Hemoglobin 7.2 g/dl (12.0-16.0)
[2017-06-28] MEDS ORDERED: fentaNYL* 50 MCG/ML 2 ML VIAL (100 MCG VIAL) ONE (12:48)
[2017-06-28] MEDS ORDERED: Midazolam* 1 MG/ML 10 ML VIAL (10 MG) ONE (12:49)
--- NOTE | 2017-06-28 15:05 | PN ---
Subjective Date of Service: 06/28/17 Interval History: HOSPITALIST PROGRESS NOTE Patient seen and examined at bedside. Care reviewed and d/w Karmen Rivas RN. Last night events noted - syncope and significant wilson stools. Had 2 more bloody BMs this AM. Feels fatigued, denies abdominal pain. Family History: Unchanged from Admission Social History: Unchanged from Admission Past Medical History: Unchanged from Admission Objective Active Medications: Acetaminophen (Tylenol Tab*) 650 mg PO Q6H PRN PRN Reason: pain/fever Sodium Chloride (Ns 0.9% 1000 Ml*) 1,000 mls @ 100 mls/hr IV PER [facility] Last Admin: 06/28/17 09:32 Dose: 100 mls/hr Pantoprazole Sodium 80 mg/ (Sodium Chloride) 250 mls @ 25 mls/hr IVPB Q10H [facility] Last Admin: 06/28/17 09:52 Dose: 25 mls/hr Multivitamins/Minerals (Preservision Areds 2) 1 cap PO BID [facility] Last Admin: 06/28/17 09:27 Dose: Not Given Prochlorperazine Edisylate (Compazine Inj*) 5 mg IV Q6H PRN PRN Reason: NAUSEA/VOMITING Last Admin: 06/28/17 00:39 Dose: 5 mg Vital Signs - 8 hr 06/28/17 06/28/17 06/28/17 07:15 07:30 07:45 Temperature Pulse Rate 83 112 100 Respiratory 16 17 17 Rate Blood Pressure 100/48 106/64 108/48 (mmHg) O2 Sat by Pulse 99 100 98 Oximetry 06/28/17 06/28/17 06/28/17 08:00 08:30 09:00 Temperature 98.2 F Pulse Rate 102 90 101 Respiratory 17 12 14 Rate Blood Pressure 109/67 111/42 (mmHg) O2 Sat by Pulse 98 96 96 Oximetry 06/28/17 06/28/17 06/28/17 09:01 09:30 09:55 Temperature Pulse Rate 93 88 133 Respiratory 17 17 15 Rate Blood Pressure 127/58 100/38 87/57 (mmHg) O2 Sat by Pulse 98 98 96 Oximetry 06/28/17 06/28/17 06/28/17 10:00 10:30 10:35 Temperature Pulse Rate 131 138 Respiratory 14 15 15 Rate Blood Pressure 92/43 105/67 (mmHg) O2 Sat by Pulse 99 98 Oximetry 06/28/17 06/28/17 06/28/17 11:00 11:20 11:21 Temperature Pulse Rate 129 134 134 Respiratory 15 13 16 Rate Blood Pressure 101/47 78/60 105/52 (mmHg) O2 Sat by Pulse 99 97 98 Oximetry 06/28/17 06/28/17 06/28/17 11:30 11:36 11:45 Temperature Pulse Rate 129 134 130 Respiratory 14 12 16 Rate Blood Pressure 104/54 106/51 106/48 (mmHg) O2 Sat by Pulse 97 98 98 Oximetry 06/28/17 06/28/17 06/28/17 12:00 12:15 12:58 Temperature 99.1 F Pulse Rate 137 131 Respiratory 17 13 18 Rate Blood Pressure 80/39 106/48 (mmHg) O2 Sat by Pulse 95 98 Oximetry Oxygen Devices in Use Now: None Appearance: Elderly lady lying in bed in NAD. Eyes: No Scleral Icterus Ears/Nose/Mouth/Throat: Mucous Membranes Moist - pale Neck: Trachea Midline Respiratory: Symmetrical Chest Expansion and Respiratory Effort, Clear to Auscultation Cardiovascular: RRR - Normal S1 and S2 Abdominal: NL Sounds; No Tenderness; No Distention Neurological: Alert and Oriented x 3, NL Muscle Strength and Tone Result Diagrams: 06/28/17 10:15 06/28/17 06:25 Assess/Plan/Problems-Billing Assessment: Mrs. Carroll is an 87yo F with PMH of HTN, TIA 03/24, who presented to ED with c/o fatigue, weakness, found to have symptomatic anemia. - Patient Problems (1) Symptomatic anemia Comment: - Has received 6 PRBCs so far - goal Hb~8. (2) GI bleed Comment: - EGD showed large gastric ulcer with stigmata of bleeding. - Dr. Quesada recommended holding ASA for 5 days due to high risk of bleeding, PPI BID for 2 weeks and then once a day, and to discontinue NSAIDS. Overnight patient had a syncopal episode and multiple episodes of wilson stools. - Repeat EGD today showed no active source of bleeding and NM bleeding scan suggested a gastroduodenal source. - I talked with patient, son, and daughter about her diagnosis. We talked about transfer to a higher level of care for IR arterial embolization, but after reviewing risks and benefits, they elect not to pursue it, as the patient would no be interested in aggressive or invasive measures. Plan is to continue medical management with Protonix drip, monitor H/H and transfuse as needed. (3) DVT prophylaxis Comment: - SCDs. (4) DNR (do not resuscitate) Status and Disposition: Inpatient for management of symptomatic anemia and gastric ulcer.
--- NOTE | 2017-06-28 15:27 | RAD ---
INDICATION: Rectal bleeding COMPARISON: CT dated April 12, 2017 TECHNIQUE: Following the administration of 25.33 millicuries of technetium 99m labelled red blood cells, serial and static, anterior images of the abdomen were obtained at 5 minute increments for a period of one hour. FINDINGS: There is very faint uptake in the small bowel overlying the left upper quadrant and left hemiabdomen. No large amount of uptake or focal site of active bleeding is visualized. IMPRESSION: THERE IS VERY MILD UPTAKE IN THE SMALL BOWEL OVERLYING THE LEFT UPPER QUADRANT AND LEFT HEMIABDOMEN BUT A FOCAL SITE OF BLEEDING CANNOT BE DETERMINED. BASED ON THESE APPEARANCES SITE OF BLEEDING IS SUSPECTED TO BE GASTRODUODENAL.
[2017-06-28 16:46] LABS: Hematocrit 26 % (35-47); Hemoglobin 8.7 g/dl (12.0-16.0)
[2017-06-28] MEDS ORDERED: NS 0.9% 1000 ML* 1,000 ML IV SCH (17:49)
[2017-06-28 20:07] LABS: Hematocrit 25 % (35-47); Hemoglobin 8.6 g/dl (12.0-16.0)
[2017-06-29 02:31] LABS: Hematocrit 23 % (35-47); Hemoglobin 7.7 g/dl (12.0-16.0)
[2017-06-29 06:49] LABS: ABS Basophils 0.1 10^3/ul (0-0.2); ABS Eosinophils 0.1 10^3/ul (0-0.6); ABS Lymphocytes 1.6 10^3/ul (1.0-4.8); ABS Neutrophils 13.2 10^3/ul (1.5-7.7); ABS Nucleated RBC 0 10^3/ul; Eosinophil % 0.4 % (0-6); Hematocrit 22 % (35-47); Hemoglobin 7.5 g/dl (12.0-16.0); Lymphocyte % 9.8 % (25-47); Mean Corpuscular HGB Conc 34 g/dl (31-36); Mean Corpuscular Hemoglobin 31 pg (27-31); Mean Corpuscular Volume 89 fL (80-97); Nucleated Red Blood Cells % 0; Platelet Count 221 10^3/ul (150-450); Red Blood Count 2.47 10^6/ul (4.0-5.4); Red Cell Distribution Width 15 % (10.5-15); White Blood Count 15.9 10^3/ul (3.5-10.8)
[2017-06-29] MEDS: Pantoprazole IV* 80 MG in NS 0.9% 250 ML* 250 ML IVPB SCH ×2 (07:04→18:13)
[2017-06-29 07:15] LABS: EGFR Non-African American 74.6 (>60)
[2017-06-29] MEDS: PTO:Multivitamins/Minerals AREDS2 cap PO SCH ×3 (08:22→20:49)
[2017-06-29] MEDS ORDERED: Furosemide IV* 10 MG/ML 2 ML VIAL (20 MG) IV SLOW PU ONE (08:56)
--- NOTE | 2017-06-29 13:58 | PRO ---
CC: Tyrel Sosa MD GASTROENTEROLOGY PROCEDURE NOTE: DATE OF PROCEDURE: 06/28/17 REFERRING PHYSICIAN: Tyrel Sosa MD PROCEDURE: EGD. PREOPERATIVE DIAGNOSIS: An 87-year-old female who presented with significant anemia. The patient un derwent upper endoscopy yesterday morning with Dr. Quesada. She had a large pyloric ulcer with no sti gmata of recent bleeding, no active bleeding, and essentially a clear stomach. She was commenced on omeprazole 20 mg b.i.d. Apparently last night, the patient had 2 maroon colored stools. Followup he matocrit this morning dropped down to 18 last evening. As of 6 o'clock this morning, she had receive d a total of 5 units of packed red blood cells. Two hours ago, the patient passed another large tao on colored stool. Followup hematocrit at 10:15 was 21. She has received IV hydration as well as ano ther unit of packed red blood cells and upper endoscopy is being performed. POSTOPERATIVE DIAGNOSES: 1. Normal esophagus. 2. Large bezoar in the stomach consisting both of clot, food, debris, and pills in the proximal stom ach. There are some old blood, which is not a large amount throughout the stomach. The previously n oted pyloric ulcer is seen and photographed. There is no stigmata of recent bleeding. There is no a ctive bleeding. There is no where to perform therapy as the tissue overlying the ulcer is old exudat e and very firm. 3. The scope was passed down into the duodenal bulb and descending duodenum. There was no significan t old or no new blood present. No signs of other source of bleeding. PROCEDURE MEDICATIONS: 1. Versed 1.5 mg IV. 2. Fentanyl 25 mcg IV. INSTRUMENT: GF-190 Olympus high-definition gastroscope. DESCRIPTION OF PROCEDURE: Informed consent was obtained prior to performing this procedure. The inst rument was introduced into the mouth and passed through cervical esophagus under direct visualization . The instrument was then advanced down the esophagus. The esophagus was normal. The scope was then passed in to gastric cardia, fundus, body and antrum. There was large bezoar of what appeared to be pills, old clot and possibly food within the proximal stomach. Photograph was obtained in the regio n of the pylorus. The previously noted ulcer was seen and photographed. This had no stigmata of rece nt bleeding. No active bleeding. The area was covered with dark colored overlying exudate, which wa s quite firm. No therapy was performed given the reasons above. The scope was passed through the py lorus and duodenal bulb and descending duodenum. There really was no old and definitely no new blood present within this area. The instrument was withdrawn from the patient. The patient tolerated the procedure well and there were no complications. RECOMMENDATIONS: It is possible that the patient is bleeding from elsewhere on her GI tract includin g the small bowel or proximal colon. No bleeding was noted yesterday either on this large ulcer. At this point, I would recommend bleeding scan. The patient should remain on IV pantoprazole drip. Sh e should receive additional 2 units of packed red blood cells. If bleeding scan is nondiagnostic, it might be worth considering transfer to a facility where Interventional Radiology is available to per form angiography with possible embolization. [id number]/[facility] #: [id number]
--- NOTE | 2017-06-29 14:21 | PN ---
Subjective Date of Service: 06/29/17 Interval History: HOSPITALIST PROGRESS NOTE Patient seen and examined at bedside. Care reviewed and d/w Nathalia Kaufman RN. She feels a little better today. Major complaint is fatigue. Denies abdominal pain, N/V. No BM overnight or today so far. Family History: Unchanged from Admission Social History: Unchanged from Admission Past Medical History: Unchanged from Admission Objective Active Medications: Acetaminophen (Tylenol Tab*) 650 mg PO Q6H PRN PRN Reason: pain/fever Pantoprazole Sodium 80 mg/ (Sodium Chloride) 250 mls @ 25 mls/hr IVPB Q10H [facility] Last Admin: 06/29/17 07:04 Dose: 25 mls/hr Multivitamins/Minerals (Preservision Areds 2) 1 cap PO BID [facility] Last Admin: 06/29/17 13:01 Dose: 1 cap Prochlorperazine Edisylate (Compazine Inj*) 5 mg IV Q6H PRN PRN Reason: NAUSEA/VOMITING Last Admin: 06/28/17 00:39 Dose: 5 mg Vital Signs - 8 hr 06/29/17 06/29/17 06/29/17 06:30 07:00 07:30 Temperature Pulse Rate 85 76 75 Respiratory 10 10 11 Rate Blood Pressure 123/52 119/59 116/52 (mmHg) O2 Sat by Pulse 98 97 97 Oximetry 06/29/17 06/29/17 06/29/17 07:48 08:00 08:30 Temperature 98.8 F Pulse Rate 69 67 Respiratory 13 11 Rate Blood Pressure 114/48 108/46 (mmHg) O2 Sat by Pulse 98 98 Oximetry 06/29/17 06/29/17 06/29/17 09:00 09:41 10:00 Temperature Pulse Rate 73 70 88 Respiratory 11 7 13 Rate Blood Pressure 118/59 107/52 131/60 (mmHg) O2 Sat by Pulse 97 98 97 Oximetry 06/29/17 06/29/17 06/29/17 10:30 11:00 11:30 Temperature Pulse Rate 81 74 74 Respiratory 14 10 11 Rate Blood Pressure 122/63 117/70 119/47 (mmHg) O2 Sat by Pulse 96 97 96 Oximetry 06/29/17 06/29/17 06/29/17 11:41 12:00 12:30 Temperature 98.4 F Pulse Rate 70 69 79 Respiratory 8 8 11 Rate Blood Pressure 121/55 117/58 133/54 (mmHg) O2 Sat by Pulse 97 96 97 Oximetry 06/29/17 13:00 Temperature Pulse Rate 79 Respiratory 12 Rate Blood Pressure 121/58 (mmHg) O2 Sat by Pulse 97 Oximetry Oxygen Devices in Use Now: None Appearance: Pleasant elderly lady lying in bed in NAD. Eyes: No Scleral Icterus Ears/Nose/Mouth/Throat: Mucous Membranes Moist - Pale Neck: Trachea Midline Respiratory: Symmetrical Chest Expansion and Respiratory Effort, Clear to Auscultation - decreased in bases Cardiovascular: RRR - Normal S1 and S2 Abdominal: NL Sounds; No Tenderness; No Distention Extremities: - - Bilateral hand edema, trace bilateral LE edema Neurological: Alert and Oriented x 3, NL Muscle Strength and Tone Result Diagrams: 06/29/17 06:35 06/29/17 06:35 Assess/Plan/Problems-Billing Assessment: Mrs. Carroll is an 87yo F with PMH of HTN, TIA 03/24, who presented to ED with c/o fatigue, weakness, found to have symptomatic anemia. - Patient Problems (1) Symptomatic anemia Comment: - Has received 7 PRBCs so far - goal Hb~8. - Anemia secondary to acute blood loss due to UGI bleed. - Starting to show signs of fluid overload - will give Furosemide after PRBC. (2) GI bleed Comment: - EGD showed large gastric ulcer with stigmata of bleeding. - Dr. Quesada recommended holding ASA for 5 days due to high risk of bleeding, PPI BID for 2 weeks and then once a day, and to discontinue NSAIDS. Overnight patient had a syncopal episode and multiple episodes of wilson stools. - Repeat EGD 06/28/17 showed no active source of bleeding and NM bleeding scan suggested a gastroduodenal source. - I talked with patient, son, and daughter about her diagnosis. We talked about transfer to a higher level of care for IR arterial embolization, but after reviewing risks and benefits, they elect not to pursue it, as the patient would no be interested in aggressive or invasive measures. Plan is to continue medical management with Protonix drip, monitor H/H and transfuse as needed. - Will d/c IVF, start clear liquids as tolerated. (3) DVT prophylaxis Comment: - SCDs. (4) DNR (do not resuscitate) Status and Disposition: Inpatient for management of symptomatic anemia and gastric ulcer. Continue to monitor in ICU.
[2017-06-29 15:37] LABS: Hematocrit 26 % (35-47); Hemoglobin 8.8 g/dl (12.0-16.0)
[2017-06-30] MEDS: Pantoprazole IV* 80 MG in NS 0.9% 250 ML* 250 ML IVPB SCH ×3 (01:45→22:18)
[2017-06-30 05:14] LABS: ABS Basophils 0.1 10^3/ul (0-0.2); ABS Eosinophils 0.2 10^3/ul (0-0.6); ABS Lymphocytes 1.2 10^3/ul (1.0-4.8); ABS Monocytes 0.7 10^3/ul (0-0.8); ABS Neutrophils 8.3 10^3/ul (1.5-7.7); ABS Nucleated RBC 0 10^3/ul; Eosinophil % 1.8 % (0-6); Hematocrit 23 % (35-47); Lymphocyte % 11.3 % (25-47); Mean Corpuscular HGB Conc 34 g/dl (31-36); Mean Corpuscular Hemoglobin 30 pg (27-31); Mean Corpuscular Volume 88 fL (80-97); Mean Platelet Volume 6.9 um3 (7.4-10.4); Nucleated Red Blood Cells % 0.1; Platelet Count 216 10^3/ul (150-450); Red Blood Count 2.64 10^6/ul (4.0-5.4); Red Cell Distribution Width 15 % (10.5-15); White Blood Count 10.4 10^3/ul (3.5-10.8)
[2017-06-30 05:34] LABS: EGFR Non-African American 83.7 (>60)
[2017-06-30] MEDS: PTO:Multivitamins/Minerals AREDS2 cap PO SCH ×2 (08:51→20:36)
[2017-06-30] MEDS ORDERED: KCL 20 MEQ/100 ML IVPREMIX* 20 MEQ/100 ML BAG IV ONE (09:12)
--- NOTE | 2017-06-30 09:20 | PN ---
Subjective Date of Service: 06/30/17 Interval History: Patient has no nausea, but little appetite. Had one maroon stool overnight. No severe abdominal pain. Does feel weak, no chest pain. Family History: Unchanged from Admission Social History: Unchanged from Admission Past Medical History: Unchanged from Admission Objective Active Medications: Acetaminophen (Tylenol Tab*) 650 mg PO Q6H PRN PRN Reason: pain/fever Pantoprazole Sodium 80 mg/ (Sodium Chloride) 250 mls @ 25 mls/hr IVPB Q10H [facility] Last Admin: 06/30/17 01:45 Dose: 25 mls/hr Potassium Chloride (Potassium Chloride 20 Meq/100 Ml Ivpremix*) 20 meq in 100 mls @ 50 mls/hr IV ONCE ONE Stop: 06/30/17 11:11 Melatonin (Melatonin (Nf)) 3 mg PO BEDTIME PRN; Protocol PRN Reason: Sleep Multivitamins/Minerals (Preservision Areds 2) 1 cap PO BID [facility] Last Admin: 06/30/17 08:51 Dose: 1 cap Prochlorperazine Edisylate (Compazine Inj*) 5 mg IV Q6H PRN PRN Reason: NAUSEA/VOMITING Last Admin: 06/28/17 00:39 Dose: 5 mg Vital Signs - 8 hr 06/30/17 06/30/17 06/30/17 05:54 06:00 07:00 Temperature Pulse Rate 65 99 Respiratory 18 17 7 Rate Blood Pressure 103/41 133/63 (mmHg) O2 Sat by Pulse 97 95 Oximetry 06/30/17 06/30/17 07:33 08:00 Temperature 36.9 C Pulse Rate 63 Respiratory 10 Rate Blood Pressure 119/52 (mmHg) O2 Sat by Pulse 96 Oximetry Oxygen Devices in Use Now: None Appearance: pale, NAD Ears/Nose/Mouth/Throat: Clear Oropharnyx Neck: NL Appearance and Movements; NL JVP Respiratory: Symmetrical Chest Expansion and Respiratory Effort, Clear to Auscultation Cardiovascular: NL Sounds; No Murmurs; No JVD Abdominal: NL Sounds; No Tenderness; No Distention, No Hepatosplenomegaly Lymphatic: No Cervical Adenopathy Lines/Tubes/Other Access: Clean, Dry and Intact Peripheral IV Result Diagrams: 06/30/17 05:03 06/30/17 05:03 Additional Lab and Data: Lab Results Microbiology and Other Data: Microbiology Assess/Plan/Problems-Billing Assessment: Mrs. Carroll is an 87yo F with PMH of HTN, TIA 03/24, who presented to ED with c/o fatigue, weakness, found to have severe anemia. EGD showed gastric ulcer. - Patient Problems (1) Symptomatic anemia Current Visit: Yes Status: Acute Priority: High Code(s): D64.9 - ANEMIA, UNSPECIFIED SNOMED Code(s): 394334545 Comment: - anemia worsened, continues to put out maroon stool. -Has received 7 PRBCs so far - HGB down to 8 today, will transfuse one more unit to maintain - Anemia secondary to acute blood loss due to UGI bleed. - Had fluid overload, will give Furosemide after PRBC if needed (2) Hypokalemia Current Visit: Yes Status: Acute Priority: Medium Code(s): E87.6 - HYPOKALEMIA SNOMED Code(s): 25359305 Comment: - will supplement IV, recheck in AM (3) GI bleed Current Visit: Yes Status: Acute Priority: Medium Code(s): K92.2 - GASTROINTESTINAL HEMORRHAGE, UNSPECIFIED SNOMED Code(s): 28031085 Comment: - EGD showed large gastric ulcer with stigmata of bleeding. - Dr. Quesada's recommendations appreciated, will advance diet - Repeat EGD 06/28/17 showed no active source of bleeding (4) DVT prophylaxis Current Visit: Yes Status: Acute Priority: Low Code(s): ZAQ3173 - SNOMED Code(s): 302949954 Comment: - SCDs. Status and Disposition: Inpatient for management of symptomatic anemia and gastric ulcer. Continue to monitor in ICU.
[2017-06-30] MEDS: CMCS:Melatonin (NF) 3 MG TAB PO PRN (21:29)
[2017-07-01 06:08] LABS: ABS Basophils 0.1 10^3/ul (0-0.2); ABS Eosinophils 0.2 10^3/ul (0-0.6); ABS Lymphocytes 1.1 10^3/ul (1.0-4.8); ABS Monocytes 0.6 10^3/ul (0-0.8); ABS Neutrophils 6.5 10^3/ul (1.5-7.7); ABS Nucleated RBC 0 10^3/ul; Eosinophil % 2.5 % (0-6); Hematocrit 27 % (35-47); Hemoglobin 9.1 g/dl (12.0-16.0); Lymphocyte % 13.1 % (25-47); Mean Corpuscular HGB Conc 34 g/dl (31-36); Mean Corpuscular Hemoglobin 30 pg (27-31); Mean Corpuscular Volume 89 fL (80-97); Mean Platelet Volume 7.1 um3 (7.4-10.4); Nucleated Red Blood Cells % 0; Platelet Count 205 10^3/ul (150-450); Red Blood Count 3.02 10^6/ul (4.0-5.4); Red Cell Distribution Width 16 % (10.5-15); White Blood Count 8.6 10^3/ul (3.5-10.8)
[2017-07-01 06:34] LABS: EGFR Non-African American 102.9 (>60)
--- NOTE | 2017-07-01 07:58 | PN ---
Subjective Date of Service: 07/01/17 Interval History: Patient has passed no further wilson stools. She has no pain, no new complaints. Tolerating a full liquid diet. Family History: Unchanged from Admission Social History: Unchanged from Admission Past Medical History: Unchanged from Admission Objective Active Medications: Acetaminophen (Tylenol Tab*) 650 mg PO Q6H PRN PRN Reason: pain/fever Pantoprazole Sodium 80 mg/ (Sodium Chloride) 250 mls @ 25 mls/hr IVPB Q10H [facility] Last Admin: 06/30/17 22:18 Dose: 25 mls/hr Melatonin (Melatonin (Nf)) 3 mg PO BEDTIME PRN; Protocol PRN Reason: Sleep Last Admin: 06/30/17 21:29 Dose: 3 mg Multivitamins/Minerals (Preservision Areds 2) 1 cap PO BID [facility] Last Admin: 06/30/17 20:36 Dose: 1 cap Potassium Chloride (Klor Con Er Tab*) 10 meq PO DAILY [facility] Prochlorperazine Edisylate (Compazine Inj*) 5 mg IV Q6H PRN PRN Reason: NAUSEA/VOMITING Last Admin: 06/28/17 00:39 Dose: 5 mg Vital Signs - 8 hr 07/01/17 07/01/17 07/01/17 03:00 04:00 05:00 Temperature 36.3 C Pulse Rate 63 62 55 Respiratory 11 12 9 Rate Blood Pressure 115/56 128/55 112/57 (mmHg) O2 Sat by Pulse 96 95 95 Oximetry 07/01/17 07/01/17 07/01/17 05:58 06:00 07:24 Temperature 36.6 C Pulse Rate 102 Respiratory 12 9 Rate Blood Pressure 140/79 (mmHg) O2 Sat by Pulse 94 Oximetry Oxygen Devices in Use Now: None Appearance: no acute distress, pale Eyes: No Scleral Icterus Ears/Nose/Mouth/Throat: Clear Oropharnyx Neck: NL Appearance and Movements; NL JVP Respiratory: Clear to Auscultation Cardiovascular: NL Sounds; No Murmurs; No JVD Abdominal: NL Sounds; No Tenderness; No Distention Lymphatic: No Cervical Adenopathy Skin: No Rash or Ulcers Neurological: Alert and Oriented x 3 Result Diagrams: 07/01/17 05:55 07/01/17 05:55 Microbiology and Other Data: Microbiology 06/28/17 00:50 Nasal Nasal Screen MRSA (PCR)([facility]) - Final Mrsa Not Detected 06/27/17 07:49 Gastric Antrum CLOtest - Final 06/26/17 11:57 Stool Stool Occult Blood ([facility]) - Final Assess/Plan/Problems-Billing Assessment: Mrs. Carroll is an 87yo F with PMH of HTN, TIA 03/24, who presented to ED with c/o fatigue, weakness, found to have severe anemia. EGD showed gastric ulcer. - Patient Problems (1) Symptomatic anemia Current Visit: Yes Status: Acute Priority: High Code(s): D64.9 - ANEMIA, UNSPECIFIED SNOMED Code(s): 908264072 Comment: - anemia has stabilized, and there is no further melena. - Has received 8 PRBCs, Hemoglobin above 8 now, no further transfusions needed. - Had fluid overload w/ prior transfusions, but did not need lasix after last unit. (2) Hypokalemia Current Visit: Yes Status: Acute Priority: Medium Code(s): E87.6 - HYPOKALEMIA SNOMED Code(s): 39438994 Comment: - supplemented IV, improved - will start low-dose oral supplement (3) GI bleed Current Visit: Yes Status: Acute Priority: Medium Code(s): K92.2 - GASTROINTESTINAL HEMORRHAGE, UNSPECIFIED SNOMED Code(s): 10439872 Comment: - 1st EGD showed large gastric ulcer with stigmata of bleeding. - Repeat EGD 06/28/17 showed no active source of bleeding - will move from ICU to medical floor. (4) DVT prophylaxis Current Visit: Yes Status: Acute Priority: Low Code(s): [id number] - SNOMED Code(s): 068705946 Comment: - SCDs. Status and Disposition: Inpatient for management of symptomatic anemia and gastric ulcer.
[2017-07-01] MEDS: Pantoprazole IV* 80 MG in NS 0.9% 250 ML* 250 ML IVPB SCH ×2 (08:16→18:30)
[2017-07-01] MEDS: PTO:Multivitamins/Minerals AREDS2 cap PO SCH ×2 (08:16→21:43)
[2017-07-01] MEDS: Potassium Chlor TAB* 10 MEQ TAB.ER PO SCH (08:16)
[2017-07-01] MEDS: CMCS:Melatonin (NF) 3 MG TAB PO PRN (23:26)
[2017-07-02 05:20] LABS: ABS Basophils 0.1 10^3/ul (0-0.2); ABS Eosinophils 0.3 10^3/ul (0-0.6); ABS Lymphocytes 1.3 10^3/ul (1.0-4.8); ABS Monocytes 0.7 10^3/ul (0-0.8); ABS Neutrophils 5.5 10^3/ul (1.5-7.7); ABS Nucleated RBC 0 10^3/ul; Eosinophil % 3.4 % (0-6); Hematocrit 26 % (35-47); Lymphocyte % 16.9 % (25-47); Mean Corpuscular HGB Conc 35 g/dl (31-36); Mean Corpuscular Hemoglobin 30 pg (27-31); Mean Corpuscular Volume 87 fL (80-97); Mean Platelet Volume 7.1 um3 (7.4-10.4); Nucleated Red Blood Cells % 0.1; Platelet Count 205 10^3/ul (150-450); Red Blood Count 2.96 10^6/ul (4.0-5.4); Red Cell Distribution Width 15 % (10.5-15); White Blood Count 7.8 10^3/ul (3.5-10.8)
[2017-07-02] MEDS: Pantoprazole IV* 80 MG in NS 0.9% 250 ML* 250 ML IVPB SCH (06:10)
[2017-07-02] MEDS: Acetaminophen TAB* 325 MG PO PRN (07:29)
[2017-07-02] MEDS: Potassium Chlor TAB* 10 MEQ TAB.ER PO SCH (07:29)
[2017-07-02] MEDS: PTO:Multivitamins/Minerals AREDS2 cap PO SCH ×2 (07:29→21:16)
[2017-07-02 08:58] LABS: ABS Basophils 0.1 10^3/ul (0-0.2); ABS Eosinophils 0.2 10^3/ul (0-0.6); ABS Monocytes 0.7 10^3/ul (0-0.8); ABS Nucleated RBC 0 10^3/ul; Eosinophil % 2.8 % (0-6); Hematocrit 30 % (35-47); Hemoglobin 10.1 g/dl (12.0-16.0); Lymphocyte % 12.4 % (25-47); Mean Corpuscular HGB Conc 34 g/dl (31-36); Mean Corpuscular Hemoglobin 30 pg (27-31); Mean Corpuscular Volume 89 fL (80-97); Mean Platelet Volume 6.9 um3 (7.4-10.4); Nucleated Red Blood Cells % 0; Platelet Count 213 10^3/ul (150-450); Red Blood Count 3.38 10^6/ul (4.0-5.4); Red Cell Distribution Width 16 % (10.5-15); White Blood Count 7.9 10^3/ul (3.5-10.8)
[2017-07-02] MEDS: Omeprazole CAP* 20 MG PO SCH ×2 (09:23→21:16)
[2017-07-02] MEDS: Sucralfate TAB* 1 GM PO SCH ×4 (09:23→21:16)
--- NOTE | 2017-07-02 15:25 | PN ---
Hospitalist Progress Note Date of Service: 07/02/17 Pt seen and examined. Meds and labs reviewed. Pt reports that her last bowel movement was last night and it was black not bright red. ROS: Black tarry stools last night. Denied VERGARA/dizziness, F/C, N/V, CP, SOB, increased cough, sputum production, abd pain, constipation, dysuria, myalgias, arthralgias, throat pain, and new skin lesions. The rest of the 14 point ROS are unremarkable. PHYSICAL EXAM: GEN APPEARANCE: Awake, not in acute distress HEENT: NC/AT, PERRLA, moist oral mucosa, (-) throat erythema NECK: Soft, supple, (-) cervical LAD, (-)JVD HEART: S1S2 WNL, RRR, No MRG CHEST: CTA, BL, GAE, No W/R/R ABD: Soft, ND/NT, NABS 4x Q EXT: No C/C/E SKIN: Warm to touch PSYCH: No active psychosis, hallucinations, depression, SI/HI ASSESSMENT AND PLAN: #Symptomatic anemia likely due to large gastric ulcer with stigmata of bleeding: - anemia has stabilized, and there is no further melena. - Has received 8 PRBCs, Hemoglobin above 8 now, no further transfusions needed. - H&H stable and will repeat at 1 PM and at 9 PM today -D/C Pantoprazole gtt and place pt on PO PPI BID and Sucralfate #GI bleed - 1st EGD showed large gastric ulcer with stigmata of bleeding. - Repeat EGD 06/28/17 showed no active source of bleeding - will move from ICU to medical floor. -As above #Hypokalemia - supplemented IV, improved - will start low-dose oral supplement #TIA, history of: -Continue to hold ASA given above -Unclear why pt not on statins; will check fasting lipid levels in AM #DVT prophylaxis - SCDs. #Disposition: -Possible D/C home in AM if pts H&H is stable along with her clinical outlook -Pt previously refused transfer to higher level of care and chose to stay to observe whether further bleeding would transpire
[2017-07-02 16:50] LABS: ABS Basophils 0.1 10^3/ul (0-0.2); ABS Eosinophils 0.2 10^3/ul (0-0.6); ABS Monocytes 0.7 10^3/ul (0-0.8); ABS Nucleated RBC 0 10^3/ul; Eosinophil % 2.4 % (0-6); Hematocrit 28 % (35-47); Hemoglobin 9.5 g/dl (12.0-16.0); Lymphocyte % 12.1 % (25-47); Mean Corpuscular HGB Conc 34 g/dl (31-36); Mean Corpuscular Hemoglobin 30 pg (27-31); Mean Corpuscular Volume 88 fL (80-97); Mean Platelet Volume 6.8 um3 (7.4-10.4); Nucleated Red Blood Cells % 0; Platelet Count 212 10^3/ul (150-450); Red Blood Count 3.21 10^6/ul (4.0-5.4); Red Cell Distribution Width 16 % (10.5-15)
[2017-07-02] MEDS: CMCS:Melatonin (NF) 3 MG TAB PO PRN (22:22)
[2017-07-03] MEDS: Acetaminophen TAB* 325 MG PO PRN (01:47)
[2017-07-03 06:19] LABS: Hematocrit 27 % (35-47); Hemoglobin 8.9 g/dl (12.0-16.0); Mean Corpuscular HGB Conc 34 g/dl (31-36); Mean Corpuscular Hemoglobin 30 pg (27-31); Mean Corpuscular Volume 89 fL (80-97); Mean Platelet Volume 7.1 um3 (7.4-10.4); Platelet Count 202 10^3/ul (150-450); Red Blood Count 2.99 10^6/ul (4.0-5.4); Red Cell Distribution Width 16 % (10.5-15); White Blood Count 7.5 10^3/ul (3.5-10.8)
[2017-07-03 06:31] LABS: EGFR Non-African American 91.5 (>60)
[2017-07-03] MEDS: Omeprazole CAP* 20 MG PO SCH (07:27)
[2017-07-03] MEDS: PTO:Multivitamins/Minerals AREDS2 cap PO SCH ×2 (07:27→20:58)
[2017-07-03] MEDS: Sucralfate TAB* 1 GM PO SCH ×4 (07:27→20:45)
[2017-07-03] MEDS: Potassium Chlor TAB* 10 MEQ TAB.ER PO SCH (07:27)
[2017-07-03] MEDS ORDERED: Iohexol 350* (CONTRAST) 500 ML MDV IV ONE (12:31)
--- NOTE | 2017-07-03 13:19 | RAD ---
Indication: Hypoxia. Contrast: Administered 61.2 ml of OMNIPAQUE 350 mg/ml CTA of the chest performed after IV contrast administration. Coronal and sagittal reconstructed images were obtained. Inferior thyroid lobes are unremarkable. Pulmonary arterial tree is well opacified. There are filling defects in the segmental branches of the right lower lobe consistent with pulmonary embolus. Additional right lower lobe segmental artery demonstrates filling defect. Right middle lobe filling defect is noted. Filling defect is noted in the superior segment of left lower lobe pulmonary artery. There is a thrombus involving the left upper lobe pulmonary artery. Bilateral pleural effusions are noted. The aorta demonstrates no evidence of aortic dissection. The lung pack demonstrate bibasilar atelectasis. Scarring is noted. There is airspace disease in the right middle lobe. The aorta demonstrates no evidence of aortic dissection. Visualized abdominal organs are otherwise unremarkable. IMPRESSION: Multiple segmental and lobar filling defects are noted in the pulmonary arteries consistent with multiple pulmonary emboli. Bilateral pleural effusions are noted. Airspace disease in the right middle lobe is noted. Findings were called to the charge nurse 4 S. at 1315.
--- NOTE | 2017-07-03 15:56 | PN ---
Hospitalist Progress Note Date of Service: 07/03/17 Pt seen and examined. Meds and labs reviewed. Pt was seen and examined this AM and was found to have little to no BLLE edema. RN called me a few hours who mentioned that the pt began having MORRIS while ambulating with saturation in the high 70s with new onset BLLE edema. CTA was ordered which revealed multiple lobar and segmental defects that is consistent with PE. Pt and her HPA, Rachael Terrazas were informed. Pt reinforced that she is currently DNR/DNI. Please see details below. ROS: Denied VERGARA/dizziness, F/C, N/V, CP, SOB, increased cough, sputum production , abd pain, diarrhea, constipation, dysuria, myalgias, arthralgias, throat pain , and new skin lesions. The rest of the 14 point ROS are unremarkable. PHYSICAL EXAM: GEN APPEARANCE: Awake, not in acute distress HEENT: NC/AT, PERRLA, moist oral mucosa, (-) throat erythema NECK: Soft, supple, (-) cervical LAD, (-)JVD HEART: S1S2 WNL, RRR, No MRG CHEST: CTA, BL, GAE, No W/R/R ABD: Soft, ND/NT, NABS 4x Q EXT: No C/C/BLLE +2, on re-examination SKIN: Warm to touch PSYCH: No active psychosis, hallucinations, depression, SI/HI ASSESSMENT AND PLAN: #Multiple PEs: -Discussed risks and benefits of anticoagulation, DVT/[place] filter, and PRBC transfusion with pt and family -Pt chose to decline [place] filter placement at this time expressing that she is a [employer] and that she is ready to see her loved ones. However, when asked if she wants to be comfort measures only, she mentioned, she is unsure. -Upon reflection upon her choices, pt decided to risk any form of bleeding that may lead to exanguination with heparin gtt while transfusion is also being set up STAT. -Mentions that she would like to re-address her code status with her and/or her HPA if she re-bleeds and will defer -Spoke with Dr. Sultana of Surgery regarding [place] filter and mentioned two of her colleagues are certified for the procedure but may not be readily available, depending on the time of need -Was also informed that Dr. Pak ([phone]) will be in the facility tomorrow for [place] filter if family and pt changes their mind -Transfer pt to ICU for better monitoring #Symptomatic anemia likely due to large gastric ulcer with stigmata of bleeding: - anemia has stabilized, and there is no further melena. - Has received 8 PRBCs, Hemoglobin above 8 now, no further transfusions needed. - H&H stable and will repeat at 1 PM and at 9 PM today -D/C Pantoprazole gtt and place pt on PO PPI BID and Sucralfate -Recheck H&H q8h x3 since pt will be fully anticoagulated #GI bleed - 1st EGD showed large gastric ulcer with stigmata of bleeding. - Repeat EGD 06/28/17 showed no active source of bleeding - will move from ICU to medical floor. -As above #Hypokalemia - supplemented IV, improved - will start low-dose oral supplement #TIA, history of: -Continue to hold ASA given above -Unclear why pt not on statins; will check fasting lipid levels in AM #DVT prophylaxis - Will be placed on heparin gtt #Disposition: -Possible D/C home in AM if pts H&H is stable along with her clinical outlook -Pt previously refused transfer to higher level of care and chose to stay to observe whether further bleeding would transpire
[2017-07-03 16:06] LABS: ABS Basophils 0 10^3/ul (0-0.2); ABS Eosinophils 0.1 10^3/ul (0-0.6); ABS Lymphocytes 0.9 10^3/ul (1.0-4.8); ABS Monocytes 0.8 10^3/ul (0-0.8); ABS Neutrophils 9.2 10^3/ul (1.5-7.7); ABS Nucleated RBC 0 10^3/ul; Eosinophil % 0.8 % (0-6); Hematocrit 34 % (35-47); Hemoglobin 11.3 g/dl (12.0-16.0); Lymphocyte % 7.8 % (25-47); Mean Corpuscular HGB Conc 33 g/dl (31-36); Mean Corpuscular Hemoglobin 29 pg (27-31); Mean Corpuscular Volume 89 fL (80-97); Mean Platelet Volume 6.9 um3 (7.4-10.4); Nucleated Red Blood Cells % 0.1; Platelet Count 256 10^3/ul (150-450); Red Blood Count 3.85 10^6/ul (4.0-5.4); Red Cell Distribution Width 16 % (10.5-15)
[2017-07-03] MEDS: Heparin DRIP 25,000 UNITS(*) 25,000 UNITS/500 ML BAG IV SCH (16:09)
[2017-07-03 16:25] LABS: EGFR Non-African American 73.4 (>60)
--- NOTE | 2017-07-03 17:45 | PN ---
Progress Note - Progress Note Date of Service: 07/03/17 Note: Brief Surgery Note: (full consult dictated) S: Hx reviewed. 87 yo w/ recent admission for acute blood loss anemia apparently r/t large gastric ulcer. She is s/p 8 units PRBCs (the most recent given on 06/30) but also currently receiving a 9th unit (H&H drawn at the time of heparin initiation was 11.3 & 34). She was found to be SOB w/ walking this a.m. w/ assoc tachycardia and desaturation. She is presently w/o chest pain or SOB. She states that she has chronic LE edema. She was fully ambulatory pre- hospital, a resident at [facility]. She did have a fall 04/12/17 w/ mult rib fxs. No prior hx of DVT or PE. No personal hx of cancer. Her son states he believes her last colonoscopy was 5 yrs ago and was normal. O: Vital Signs - 8 hr 07/03/17 07/03/17 07/03/17 13:55 15:29 15:54 Temperature 97.1 F 99.0 F Pulse Rate 120 109 106 Respiratory 18 16 19 Rate Blood Pressure 133/85 160/83 165/95 (mmHg) O2 Sat by Pulse 100 98 94 Oximetry 07/03/17 07/03/17 16:29 16:49 Temperature 97.8 F Pulse Rate Respiratory 8 Rate Blood Pressure (mmHg) O2 Sat by Pulse Oximetry Gen: WN, WD in NAD w/ nasal O2 in place. Appears comfortable. Heart: tachy but regular (monitor shows sinus tach per nsg) Lungs: scattered exp wheezes (mild); no rales Extr: symmetrical bilat LE edema (2+ pitting) from feet/ankles to and including thighs; nontender; neg Maria E's Labs: Laboratory Tests 06/26/17 06/28/17 06/29/17 10:59 06:25 06:35 Hgb BUN 57 H 41 H Albumin 2.3 L 06/30/17 07/01/17 07/01/17 05:03 05:55 05:55 Hgb 9.1 L BUN 28 H 22 Albumin 07/02/17 07/02/17 07/02/17 04:37 08:45 16:37 Hgb 9.0 L 10.1 L 9.5 L BUN Albumin 07/03/17 07/03/17 07/03/17 05:07 05:07 15:54 Hgb 8.9 L 11.3 L BUN 16 Albumin 1.8 L 07/03/17 15:54 Hgb BUN [address] report shows mult PEs bilat. A: PEs; stable at present P: plan on the part of medicine is to start IV heparin, though this may result in re-bleeding of her gastric ulcer; if she does bleed, a consideration should be given to placement of an IVC filter. Dr. Roblero is aware and the case was discussed with him. He would be available to place a filter tomorrow or Sunday if it is indicated based on re-bleeding resulting in a contraindication of ongoing anticoagulation. Patient understands. I also discussed her case at her request with her son, iMke, cell # [phone].
[2017-07-03] MEDS ORDERED: Pantoprazole IV* 40 MG IV ONE (18:00)
[2017-07-03] MEDS ORDERED: Pantoprazole DRIP 80 MG in 100 mL @ 8 MG/HR IVPB SCH (18:00)
[2017-07-03] MEDS: Pantoprazole IV* 80 MG in NS 0.9% 250 ML* 250 ML IVPB SCH (20:53)
--- NOTE | 2017-07-03 23:06 | CONS ---
PULMONARY CONSULTATION REPORT: DATE OF CONSULT: 07/03/17 CONSULTATION REQUESTED BY: Mehran Shipley MD REASON FOR CONSULTATION: Evaluation of pulmonary embolism. HISTORY OF PRESENT ILLNESS: The patient is a pleasant 87-year-old white female with history of hypertension, TIA, who presented to the emergency room on for evaluation of generalized weakness. The patient was noted to have symptomatic anemia with drop in hemoglobin from 12.5 in March to 7.1 on date of admission. The patient so far has received 8 units or PRBC. The patient was started on Protonix drip, underwent EGD. EGD was done on admission and she was noted to have large pyloric ulcer with no active bleeding. The patient subsequently had few more bowel movements with drop in hematocrit, received transfusion again, had another episode of GI bleed and underwent repeat endoscopy. She was noted to have blood in the stomach with no active bleeding at that time. She was found to have large blood ulcer in the stomach with blood clot in the proximal stomach. No other definitive treatment was performed. The patient has remained hemodynamically stable. H and H has been around 8 and 27. The patient was ambulating this morning, was found to have shortness of breath and hypoxemia. The patient underwent CTA of the chest for evaluation of possible pulmonary embolism. She has been off of anticoagulation given the GI bleed. She also did not have Venodynes ordered. CT of the chest was personally reviewed by me. The patient was noted to have multiple segmental and lobar filling defects in the pulmonary arteries bilaterally. There was no evidence of saddle embolus or large pulmonary embolism. Small bilateral pleural effusions were seen. The patient also with patchy airspace disease in right middle lobe area. The patient also with significant lower extremity swelling today. Pulmonary consultation was requested for evaluation of management of pulmonary embolism in light of history of GI bleed. The patient was seen and examined at bedside. The patient did not appear to be in any distress. She is a poor historian, denies any significant symptoms. The patient reports dyspnea with walking. She denies dizziness, loss of weight or appetite. The patient denies any further bowel movements with blood. The patient denies abdominal pain, nausea, vomiting, urinary complaints. Reports tenderness in lower extremity to touch. The patient is saturating well on room air. Blood pressure has been stable. She has been tachycardic. She is being transferred to intensive care unit for close monitoring. The patient is awaiting IVC filter placement. She will also be started on anticoagulation and will be closely monitored. PAST MEDICAL HISTORY: 1. Hypertension. 2. TIA in March . 3. GI bleed from ulcer. PAST SURGICAL HISTORY: 1. Diverticular surgery. 2. Cataract surgery. 3. Left inguinal hernia repair. MEDICATIONS: 1. Aspirin. 2. Meloxicam. 3. PreserVision eye drops. ALLERGIES: Include CODEINE, DOXYCYCLINE, EPINEPHRINE. FAMILY HISTORY: Father of renal cell cancer and mother had CHF. SOCIAL HISTORY: She lives at [facility] and her daughter is her healthcare proxy. Denies smoking, alcohol, or drug abuse. PHYSICAL EXAMINATION: Elderly female, sitting up in chair, in no apparent distress. Vital Signs: Temperature 99, pulse 106 beats per minute, respiratory rate 19 per minute, O2 sat 94 to 98% on 3 L, blood pressure 165/95. HEENT: Pupils are equal and reactive to light, mucous membranes moist, no scleral icterus. Lungs: Good air entry bilaterally, clear to auscultation. Cardiovascular: Tachycardic. S1, S2 present. Abdomen: Soft, nontender, nondistended. Bowel sounds present. Extremities: Normal range of motion, significant lower extremity swelling bilaterally up to the thighs. Skin: No rash or bruise, varicose veins in the lower extremities. Neuro: No focal deficits. LABORATORY EXAM: WBC count elevated on recent labs at 11, hemoglobin 11.3, hematocrit 34, platelet count of 256. PTT 30. Sodium 137, potassium 4.0, chloride 111, bicarb 25, BUN 14, creatinine 0.75. Calcium 7.7. Magnesium 1.7. LFTs within normal limits. IMAGING: CTA of the chest as described above in HPI. IMPRESSION AND RECOMMENDATIONS: 87-year-old female admitted with generalized weakness, found to have symptomatic anemia from GI bleed likely secondary to peptic ulcer disease. The patient during the course of stay was diagnosed with pulmonary embolism, and possible lower extremity DVT. The patient is awaiting IVC filter placement. The patient is high risk for anticoagulation secondary to recent GI bleed. The patient with possible significant clot burden in lower extremities. Clots are not big enough for intravascular thrombolysis. The patient will be monitored in close setting, anticoagulation will be initiated, anticoagulation will be stopped with any signs of active bleeding. H and H to be closely monitored. The patient understands risks and benefits of anticoagulation, which were thoroughly discussed with her today. The patient is agreeable to starting on anticoagulation. She will definitely benefit from IVC filter if she could not be anticoagulated further. She is otherwise hemodynamically stable other than tachycardia. The patient is DNR/DNI. Thank you for allowing me to participate in the care of your patient. Will follow up with you. [id number]/[facility] #: [id number] JUN
[2017-07-04 06:45] LABS: ABS Basophils 0.1 10^3/ul (0-0.2); ABS Eosinophils 0.2 10^3/ul (0-0.6); ABS Lymphocytes 0.9 10^3/ul (1.0-4.8); ABS Monocytes 0.7 10^3/ul (0-0.8); ABS Neutrophils 6.6 10^3/ul (1.5-7.7); ABS Nucleated RBC 0 10^3/ul; Eosinophil % 1.9 % (0-6); Hematocrit 29 % (35-47); Hemoglobin 9.9 g/dl (12.0-16.0); Lymphocyte % 10.6 % (25-47); Mean Corpuscular HGB Conc 34 g/dl (31-36); Mean Corpuscular Hemoglobin 30 pg (27-31); Mean Corpuscular Volume 88 fL (80-97); Mean Platelet Volume 7.1 um3 (7.4-10.4); Nucleated Red Blood Cells % 0.1; Platelet Count 209 10^3/ul (150-450); Red Cell Distribution Width 16 % (10.5-15); White Blood Count 8.3 10^3/ul (3.5-10.8)
[2017-07-04] MEDS: Pantoprazole IV* 80 MG in NS 0.9% 250 ML* 250 ML IVPB SCH ×2 (07:02→17:03)
[2017-07-04 07:08] LABS: EGFR Non-African American 88.2 (>60)
--- NOTE | 2017-07-04 08:49 | CONS ---
CC: Dr. Quesada; Dr. Sosa. SURGICAL CONSULT: DATE OF CONSULT: 07/03/17 ATTENDING SURGEON: Dr. Jeanette Sultana. CHIEF COMPLAINT: Multiple PEs. HISTORY OF PRESENT ILLNESS: This is an 87-year-old female who was admitted on 06/26/17 with symptoms that were subsequently found to be related to upper GI bleeding, presumably from the large gastric ulcer with resultant requirement of 8 units of packed red cells transfused. Possible causes include her ongoing use of aspirin and meloxicam. She improved in recent days (her last transfusion had been 06/30/17) and plans were being made toward the goal of discharge. However, this morning she became short of breath with ambulation and found to be in sinus tachycardia with decreased O2 sats. Her sats improved with 3 liters nasal cannula and at the present time she denies any chest pain or shortness of breath (the patient was seen around 5 p.m. on 07/03/17). The patient states that she has had chronic lower extremity edema though she seems to be a less than perfect historian. She denies any pain in the lower extremities. She does point out a skin tear in the lateral aspect of the left lower extremity which is currently covered with DuoDERM and which she states occurred in August of 2016. Also notable from her history is a fall in early April resulting in multiple rib fractures. She is most recently a resident of [facility]. The remainder of her history including that of hypertension and TIA are outlined in her admission history and physical. There is no personal history of DVT or PE. CTA done this morning reveals multiple lobar and segmental bilateral PEs. PHYSICAL EXAM: Vital signs around the time that the patient was being transferred to ICU, at the time of my visit included temperature of 97.8, blood pressure 159/83, pulse 100, respirations 12, and O2 saturation 96% on 3 liters nasal cannula. General: Well-nourished, pleasant, and comfortable-appearing female in no acute distress. Skin: Warm and dry. No suspicious rashes or lesions. HEENT: Unremarkable. Heart: Regular, rate, and rhythm. Slight tachycardia. No murmur appreciated. Lungs: Clear to auscultation with scattered expiratory wheezes (mild). Abdomen not examined. Lower extremities are notable for 2+ pitting edema from feet and ankles, extending up to and including thighs. No tenderness to palpation. Negative Homans sign. Laceration in lateral aspect of left lower extremity covered with DuoDERM, which I did not remove (the patient did have arterial studies done within the past year for assessment of her slow to heal skin laceration and those studies were essentially normal). CT done this morning shows multiple bilateral segmental and lobar filling defects consistent with multiple pulmonary emboli. ASSESSMENT: Multiple pulmonary emboli in setting of recent severe upper GI bleed. PLAN: The medical team at this point is planning to anticoagulate with IV heparin (no bolus) and orders were changed to convert her back to IV Protonix. The team asked us to assess the patient for possible IVC filter in the event that she rebleeds. The patient understands the indications for filter and also understands that the procedure is not urgently required at the present time. The case was discussed with Dr. Mathews, who would be available to place the filter on 07/04/17 if it were so indicated. She does have lab work ordered for the morning as well as routine labs per heparin protocol. At one point, the patient was concerned and stated that she did not want heroic interventions performed. The procedure was explained to her and to her son, Mike who also discussed it with the patient's daughter. We will continue to follow. The patient understands that she is at high risk for rebleeding and at which time decision will be made in terms of IVC filter. WILLIAM RUTHERFORD [id number]/[facility] #: [id number] JUN
--- NOTE | 2017-07-04 08:57 | RAD ---
Indication: Leg edema. Duplex Doppler sonography of the deep venous system of both lower extremities was performed. Bilaterally the common femoral veins, proximal greater saphenous veins, proximal deep femoral veins, femoral veins, popliteal veins, appear patent and compressible. The right posterior tibial veins and peroneal veins appear patent and compressible. The left peroneal veins are noncompressible and demonstrates no flow. In addition one of the paired posterior tibial veins in the left lower extremity also demonstrates no flow with echogenic material. Findings are consistent with deep venous thrombosis of the peroneal veins and one of the paired peroneal veins in the left calf. IMPRESSION: Deep venous thrombosis involving the peroneal veins in the left calf as well as one of the paired posterior tibial veins in the left calf.
[2017-07-04] MEDS: Potassium Chlor TAB* 10 MEQ TAB.ER PO SCH (09:27)
[2017-07-04] MEDS: Sucralfate TAB* 1 GM PO SCH ×4 (09:27→21:20)
[2017-07-04] MEDS: PTO:Multivitamins/Minerals AREDS2 cap PO SCH ×2 (09:27→21:20)
--- NOTE | 2017-07-04 16:16 | PN ---
Progress Note - Progress Note Date of Service: 07/04/17 - Pulm f/u note Note: Pt seen and examined at bedside. Pt reports improvement in breathing. was transferred to ICU this morning, was placed on high flow O2 Active Medications Generic Name Dose Route Start Last Admin Trade Name [place] PRN Reason Stop Dose Admin Acetaminophen 650 mg 06/27/17 09:33 07/03/17 01:47 Tylenol Tab* PO 650 mg Q6H PRN Administration pain/fever Heparin Sodium/Dextrose 25,000 units in 500 mls @ 0 mls/hr 07/03/17 15:00 16:09 Heparin Drip 25,000 Units(*) IV 23 mls/hr PER RATE KANCHAN Administration Protocol Per Protocol Pantoprazole Sodium 80 mg/ 250 mls @ 25 mls/hr 07/03/17 19:00 07/04/17 07:02 Sodium Chloride IVPB 25 mls/hr Q10H KANCHAN Administration Protocol Melatonin 3 mg 06/30/17 01:25 07/02/17 22:22 Melatonin (Nf) PO 3 mg BEDTIME PRN Administration Sleep Protocol Multivitamins/Minerals 1 cap 06/28/17 09:00 07/04/17 09:27 Preservision Areds 2 PO 1 cap BID KANCHAN Administration Potassium Chloride 10 meq 07/01/17 09:00 07/04/17 09:27 Klor Con Er Tab* PO 10 meq DAILY KANCHAN Administration Prochlorperazine Edisylate 5 mg 06/28/17 00:27 06/28/17 00:39 Compazine Inj* IV 5 mg Q6H PRN Administration NAUSEA/VOMITING Sucralfate 1 gm 07/02/17 09:00 07/04/17 12:52 Carafate* PO 1 gm QID KANCHAN Administration Vital Signs Temp Pulse Resp BP Pulse Ox 98 F 79 12 140/78 96 07/04/17 11:40 07/04/17 15:00 07/04/17 15:00 07/04/17 15:00 07/04/17 15:00 O/E: Pt in NAD HEENT: PERRLA, no JVD Lungs: diminished air entry b/l CVS: S1, S2+ Abd: Soft, BS+ Ext: No edema Skin: No rash or bruise Neuro: No focal defecitis Laboratory Results - last 24 hr 07/03/17 07/03/17 07/03/17 05:07 15:54 15:54 WBC RBC Hgb Hct MCV MCH MCHC RDW Plt Count MPV Neut % (Auto) Lymph % (Auto) Lake % (Auto) Eos % (Auto) Baso % (Auto) Absolute Neuts (auto) Absolute Lymphs (auto) Absolute Monos (auto) Absolute Eos (auto) Absolute Basos (auto) Absolute Nucleated RBC Nucleated RBC % APTT 30.7 BUN 14 Creatinine 0.75 Est GFR ( Amer) 94.5 Est GFR (Non-Af Amer) 73.4 Blood Type A Negative Antibody Screen Negative Crossmatch See Detail 07/03/17 07/04/17 07/04/17 23:15 06:30 06:30 WBC 8.3 RBC 3.30 L Hgb 9.9 L Hct 29 L MCV 88 MCH 30 MCHC 34 RDW 16 H Plt Count 209 MPV 7.1 L Neut % (Auto) 78.8 Lymph % (Auto) 10.6 L Lake % (Auto) 8.1 H Eos % (Auto) 1.9 Baso % (Auto) 0.6 Absolute Neuts (auto) 6.6 Absolute Lymphs (auto) 0.9 L Absolute Monos (auto) 0.7 Absolute Eos (auto) 0.2 Absolute Basos (auto) 0.1 Absolute Nucleated RBC 0 Nucleated RBC % 0.1 APTT 102.9 H* 84.2 H BUN Creatinine Est GFR ( Amer) Est GFR (Non-Af Amer) Blood Type Antibody Screen Crossmatch 07/04/17 07/04/17 06:30 14:40 WBC RBC Hgb Hct MCV MCH MCHC RDW Plt Count MPV Neut % (Auto) Lymph % (Auto) Lake % (Auto) Eos % (Auto) Baso % (Auto) Absolute Neuts (auto) Absolute Lymphs (auto) Absolute Monos (auto) Absolute Eos (auto) Absolute Basos (auto) Absolute Nucleated RBC Nucleated RBC % APTT 81.7 H BUN Creatinine 0.64 Est GFR ( Amer) 113.4 Est GFR (Non-Af Amer) 88.2 Blood Type Antibody Screen Crossmatch I/R: 87 y o f former smoker with O2 dependant COPD, recurrent admissions recently a/w worsening SOB, being treated for acute COPD exacerbation Pt has chronic hypercapnic and hypoxic resp failure Given recent recurrent exacerbations and chronic hypercapnia, would benefit from NIPPV Will try BiPAP tonight Will d/c home on BiPAP if able to tolerate Titrate FiO2 as tolerated c/w bronchodilators Will start prednisone taper starting tomorrow Family at bedside, pt and family updated of plan D/w Dr Love
--- NOTE | 2017-07-04 19:37 | PN ---
Subjective Date of Service: 07/04/17 Interval History: Pt seen and examined. Meds and labs reviewed. Pt was seen later today by Dr. Jarrett who advised NPPV with BiPAP at night. ROS: Denied VERGARA/dizziness, F/C, N/V, CP, SOB, increased cough, sputum production , abd pain, diarrhea, constipation, dysuria, myalgias, arthralgias, throat pain , and new skin lesions. The rest of the 14 point ROS are unremarkable. PHYSICAL EXAM: GEN APPEARANCE: Awake, not in acute distress HEENT: NC/AT, PERRLA, moist oral mucosa, (-) throat erythema NECK: Soft, supple, (-) cervical LAD, (-)JVD HEART: S1S2 WNL, RRR, No MRG CHEST: CTA, BL, GAE, No W/R/R ABD: Soft, ND/NT, NABS 4x Q EXT: No C/C/E SKIN: Warm to touch PSYCH: No active psychosis, hallucinations, depression, SI/HI ASSESSMENT AND PLAN: #Multiple PEs: -Discussed risks and benefits of anticoagulation, DVT/[place] filter, and PRBC transfusion with pt and family yesterday -Pt chose to decline [place] filter placement at this time expressing that she is a [employer]ism and that she is ready to see her loved ones. However, will readdress its importance if she rebleeds -Was also informed that Dr. Pak ([id number]) will be in the facility tomorrow for [place] filter if family and pt changes their mind -BiPAP tonight -Consider starting Coumadin in AM #Symptomatic anemia likely due to large gastric ulcer with stigmata of bleeding: - anemia has stabilized, and there is no further melena. - Has received 9 PRBCs - H&H stable and will repeat at 1 PM and at 9 PM today -Pt back on Pantoprazole gtt #GI bleed - 1st EGD showed large gastric ulcer with stigmata of bleeding. - Repeat EGD 06/28/17 showed no active source of bleeding - will move from ICU to medical floor. -As above #Hypokalemia - supplemented IV, improved - will start low-dose oral supplement #TIA, history of: -Continue to hold ASA given above -Unclear why pt not on statins; will check fasting lipid levels in AM #DVT prophylaxis - Will be placed on heparin gtt #Disposition: -Possible D/C home in AM if pts H&H is stable along with her clinical outlook -Possible start of Coumadin in AM if H&H continues to be stable without any clincical S/S of bleeding Family History: Unchanged from Admission Social History: Unchanged from Admission Past Medical History: Unchanged from Admission Objective Active Medications: Acetaminophen (Tylenol Tab*) 650 mg PO Q6H PRN PRN Reason: pain/fever Last Admin: 07/03/17 01:47 Dose: 650 mg Heparin Sodium/Dextrose (Heparin Drip 25,000 Units(*)) 25,000 units in 500 mls @ 0 mls/hr IV PER RATE KANCHAN; Per Protocol PRN Reason: Protocol Last Admin: 07/03/17 16:09 Dose: 23 mls/hr Pantoprazole Sodium 80 mg/ (Sodium Chloride) 250 mls @ 25 mls/hr IVPB Q10H KANCHAN PRN Reason: Protocol Last Admin: 07/04/17 17:03 Dose: 25 mls/hr Melatonin (Melatonin (Nf)) 3 mg PO BEDTIME PRN; Protocol PRN Reason: Sleep Last Admin: 07/02/17 22:22 Dose: 3 mg Multivitamins/Minerals (Preservision Areds 2) 1 cap PO BID [facility] Last Admin: 07/04/17 09:27 Dose: 1 cap Potassium Chloride (Klor Con Er Tab*) 10 meq PO DAILY [facility] Last Admin: 07/04/17 09:27 Dose: 10 meq Prochlorperazine Edisylate (Compazine Inj*) 5 mg IV Q6H PRN PRN Reason: NAUSEA/VOMITING Last Admin: 06/28/17 00:39 Dose: 5 mg Sucralfate (Carafate*) 1 gm PO QID [facility] Last Admin: 07/04/17 17:03 Dose: 1 gm Vital Signs - 8 hr 07/04/17 07/04/17 07/04/17 11:40 12:00 13:00 Temperature 98 F Pulse Rate 71 73 Respiratory 11 14 Rate Blood Pressure 153/82 154/107 (mmHg) O2 Sat by Pulse 91 95 Oximetry 07/04/17 07/04/17 07/04/17 14:00 14:35 15:00 Temperature Pulse Rate 71 72 79 Respiratory 8 17 15 Rate Blood Pressure 159/71 134/63 140/78 (mmHg) O2 Sat by Pulse 96 96 96 Oximetry 07/04/17 07/04/17 07/04/17 16:00 16:33 17:00 Temperature 98.3 F Pulse Rate 60 61 67 Respiratory 7 8 7 Rate Blood Pressure 155/67 155/67 173/81 (mmHg) O2 Sat by Pulse 98 95 98 Oximetry 07/04/17 07/04/17 07/04/17 18:00 18:50 19:29 Temperature 98.2 F Pulse Rate 70 Respiratory 19 13 Rate Blood Pressure 150/88 (mmHg) O2 Sat by Pulse 98 Oximetry Oxygen Devices in Use Now: Nasal Cannula Result Diagrams: 07/04/17 06:30 07/04/17 06:30 Additional Lab and Data: Lab Results Microbiology and Other Data: Microbiology 06/28/17 00:50 Nasal Nasal Screen MRSA (PCR)(VITA) - Final Mrsa Not Detected 06/27/17 07:49 Gastric Antrum CLOtest - Final 06/26/17 11:57 Stool Stool Occult Blood (VITA) - Final Assess/Plan/Problems-Billing Assessment: Mrs. Carroll is an 87yo F with PMH of HTN, TIA 03/24, who presented to ED with c/o fatigue, weakness, found to have severe anemia. EGD showed gastric ulcer. Status and Disposition: Inpatient for management of symptomatic anemia and gastric ulcer.
[2017-07-05] MEDS: Heparin DRIP 25,000 UNITS(*) 25,000 UNITS/500 ML BAG IV SCH (02:15)
[2017-07-05] MEDS: Pantoprazole IV* 80 MG in NS 0.9% 250 ML* 250 ML IVPB SCH (03:54)
[2017-07-05 06:32] LABS: ABS Basophils 0.1 10^3/ul (0-0.2); ABS Eosinophils 0.3 10^3/ul (0-0.6); ABS Lymphocytes 1.4 10^3/ul (1.0-4.8); ABS Monocytes 0.7 10^3/ul (0-0.8); ABS Neutrophils 6.7 10^3/ul (1.5-7.7); ABS Nucleated RBC 0 10^3/ul; Eosinophil % 2.9 % (0-6); Hematocrit 34 % (35-47); Hemoglobin 11.5 g/dl (12.0-16.0); Lymphocyte % 14.8 % (25-47); Mean Corpuscular HGB Conc 34 g/dl (31-36); Mean Corpuscular Hemoglobin 30 pg (27-31); Mean Corpuscular Volume 87 fL (80-97); Mean Platelet Volume 7.1 um3 (7.4-10.4); Nucleated Red Blood Cells % 0.1; Platelet Count 249 10^3/ul (150-450); Red Blood Count 3.88 10^6/ul (4.0-5.4); Red Cell Distribution Width 16 % (10.5-15); White Blood Count 9.1 10^3/ul (3.5-10.8)
[2017-07-05 06:51] LABS: EGFR Non-African American 93.2 (>60)
[2017-07-05] MEDS: PTO:Multivitamins/Minerals AREDS2 cap PO SCH ×2 (08:12→22:18)
[2017-07-05] MEDS: Potassium Chlor TAB* 10 MEQ TAB.ER PO SCH (08:12)
[2017-07-05] MEDS: Sucralfate TAB* 1 GM PO SCH ×4 (08:12→22:18)
[2017-07-05] MEDS ORDERED: Magnesium Sulfate 2 GM IV* 2 GM/50 ML BAG IVPB ONE (09:39)
--- NOTE | 2017-07-05 10:37 | PN ---
Progress Note - Progress Note Date of Service: 07/05/17 SOAP: Subjective: []Pt seen and examined at bedside with WILLIAM Guillermo. Pt is s/p acute blood loss anemia due to large gastric ulcer. Pt additionally complained of SOB the morning of 07/03 and was found to have multiple PEs as well as left calf DVTs. Pt was started on IV heparin on 07/03. Denies abdominal pain, N/V, red or melanous stools. Last BM was last night 07/04 and was brown and soft in consistency. Pt reports intermittent RLQ pain yesterday evening while voiding that was "fleeting." Denies current pain or dysuria this am. Denies hematuria. Denies chest pain or shortness of breath. Pt reports she would like to start walking as she is feeling weak and lives independently in her apartment at [place]. She will need to be able to ambulate prior to discharge. She uses a walker in the evening. Pt reports she continues to have swelling in her legs that remains unchanged. Pt reports she has had chronic mild swelling in her ankles but never to this extent. Reports calf "tightness" bilaterally. Pt is concerned about left LE ulcer she was being treated for by Dr. Howadr at the wound clinic. She reports she has had the same bandage on the wound for up to 3 weeks. Pt reports she was going to be discharged from the wound clinic before this event occurred. Objective: [] Vital Signs 07/05/17 07/05/17 07/05/17 03:00 04:00 05:00 Temperature 98.5 F Pulse Rate 49 53 53 Respiratory 11 12 16 Rate Blood Pressure 148/60 171/58 140/62 (mmHg) O2 Sat by Pulse 91 91 92 Oximetry 07/05/17 07/05/17 07/05/17 06:00 07:00 07:47 Temperature 97.4 F Pulse Rate 90 86 Respiratory 13 19 13 Rate Blood Pressure (mmHg) O2 Sat by Pulse 92 91 Oximetry 07/05/17 07/05/17 08:00 09:00 Temperature Pulse Rate 77 Respiratory 16 14 Rate Blood Pressure 150/84 (mmHg) O2 Sat by Pulse 94 Oximetry Laboratory Results - last 24 hr 07/04/17 07/04/17 07/05/17 14:40 21:03 06:15 WBC 9.1 RBC 3.88 L Hgb 11.5 L Hct 34 L MCV 87 MCH 30 MCHC 34 RDW 16 H Plt Count 249 MPV 7.1 L Neut % (Auto) 73.0 Lymph % (Auto) 14.8 L [place] % (Auto) 8.2 H Eos % (Auto) 2.9 Baso % (Auto) 1.1 Absolute Neuts (auto) 6.7 Absolute Lymphs (auto) 1.4 Absolute Monos (auto) 0.7 Absolute Eos (auto) 0.3 Absolute Basos (auto) 0.1 Absolute Nucleated RBC 0 Nucleated RBC % 0.1 APTT 81.7 H 37.0 H Sodium Potassium Chloride Carbon Dioxide Anion Gap BUN Creatinine Est GFR ( Amer) Est GFR (Non-Af Amer) BUN/Creatinine Ratio Glucose Calcium Magnesium 07/05/17 07/05/17 06:15 06:15 WBC RBC Hgb Hct MCV MCH MCHC RDW Plt Count MPV Neut % (Auto) Lymph % (Auto) [place] % (Auto) Eos % (Auto) Baso % (Auto) Absolute Neuts (auto) Absolute Lymphs (auto) Absolute Monos (auto) Absolute Eos (auto) Absolute Basos (auto) Absolute Nucleated RBC Nucleated RBC % APTT 62.4 H Sodium 139 Potassium 3.9 Chloride 110 Carbon Dioxide 25 Anion Gap 4 BUN 12 Creatinine 0.61 Est GFR ( Amer) 119.9 Est GFR (Non-Af Amer) 93.2 BUN/Creatinine Ratio 19.7 Glucose 88 Calcium 8.1 L Magnesium 1.8 L Const: Elderly female resting comfortably upright in her chair. Appears to be in NAD. Lungs: Respirations are non labored. Lung sounds slightly diminished but CTA in all pack. No wheezes/rhonchi/rales. Heart: RRR. Regular S1. Regular S2. No murmurs/rubs/gallop Ext: LEs 2+ pitting edema bilaterally from knees to ankles. 1+ pedal pulses. No tenderness to palpation bilaterally. Neg Maria E's sign. Duoderm removed from left lateral LE ulceration which revealed a well healing , closed wound without drainage. Assessment: []Pt s/p acute blood loss anemia d/t large gastric ulcer with multiple PEs: H+H is stable, VSS. No signs of bleeding on anticoagulation Plan: []Okay to encourage ambulation at this time. Continue anticoagulation per ICU protocol. No need for IVC filter at this time as patient has not shown signs of bleeding on anticoagulation and H+H is stable. Will continue to monitor. Order placed to apply new duoderm dressing to left LE ulceration. Discussed findings and plan with patient at bedside. Will update and discuss with surgical team.
[2017-07-05] MEDS: Warfarin TAB(*) 6 MG PO SCH (16:50)
--- NOTE | 2017-07-05 18:07 | PN ---
Progress Note - Progress Note Date of Service: 07/05/17 - Pulm f/u note Note: Pt seen and examined at bedside. Reports feeling better. Denies GI bleed, cough , hemoptysis, SOB. Was able to ambulate, limited due to SOB Active Medications Generic Name Dose Route Start Last Admin Trade Name Freq PRN Reason Stop Dose Admin Acetaminophen 650 mg 06/27/17 09:33 07/03/17 01:47 Tylenol Tab* PO 650 mg Q6H PRN Administration pain/fever Heparin Sodium/Dextrose 25,000 units in 500 mls @ 0 mls/hr 07/03/17 15:00 02:15 Heparin Drip 25,000 Units(*) IV 16 mls/hr PER RATE KANCHAN Administration Protocol Per Protocol Melatonin 3 mg 06/30/17 01:25 07/02/17 22:22 Melatonin (Nf) PO 3 mg BEDTIME PRN Administration Sleep Protocol Multivitamins/Minerals 1 cap 06/28/17 09:00 07/05/17 08:12 Preservision Areds 2 PO 1 cap BID KANCHAN Administration Pantoprazole Sodium 40 mg 07/05/17 21:00 Protonix Iv* IV BID [facility] Pharmacy Profile Note 1 note 07/05/17 17:00 Coumadin Daily Reminder* FOLLOW UP 1700 [facility] Potassium Chloride 10 meq 07/01/17 09:00 07/05/17 08:12 Klor Con Er Tab* PO 10 meq DAILY [facility] Administration Prochlorperazine Edisylate 5 mg 06/28/17 00:27 06/28/17 00:39 Compazine Inj* IV 5 mg Q6H PRN Administration NAUSEA/VOMITING Sucralfate 1 gm 07/02/17 09:00 07/05/17 16:51 Carafate* PO 1 gm QID KANCHAN Administration Warfarin Sodium 6 mg 07/05/17 17:00 07/05/17 16:50 Coumadin Tab(*) PO 6 mg DAILY@1700 [facility] Administration Protocol Vital Signs Temp Pulse Resp BP Pulse Ox 97.7 F 68 10 158/72 94 07/05/17 16:00 07/05/17 17:00 07/05/17 17:00 07/05/17 17:00 07/05/17 17:00 O/E: Elderly f in NAD HEENT: PERRLA, NO JVD Lungs: Clear to auscultation b/l CVS: S1, S2+ Abd: Soft, BS+ Ext: Edema + Skin: Bruise+, no rash Neuro: No focal defecits Laboratory Results - last 24 hr 07/04/17 07/05/17 07/05/17 21:03 06:15 06:15 WBC 9.1 RBC 3.88 L Hgb 11.5 L Hct 34 L MCV 87 MCH 30 MCHC 34 RDW 16 H Plt Count 249 MPV 7.1 L Neut % (Auto) 73.0 Lymph % (Auto) 14.8 L [place] % (Auto) 8.2 H Eos % (Auto) 2.9 Baso % (Auto) 1.1 Absolute Neuts (auto) 6.7 Absolute Lymphs (auto) 1.4 Absolute Monos (auto) 0.7 Absolute Eos (auto) 0.3 Absolute Basos (auto) 0.1 Absolute Nucleated RBC 0 Nucleated RBC % 0.1 APTT 37.0 H Sodium 139 Potassium 3.9 Chloride 110 Carbon Dioxide 25 Anion Gap 4 BUN 12 Creatinine 0.61 Est GFR ( Amer) 119.9 Est GFR (Non-Af Amer) 93.2 BUN/Creatinine Ratio 19.7 Glucose 88 Calcium 8.1 L Magnesium 1.8 L 07/05/17 07/05/17 06:15 12:20 WBC RBC Hgb Hct MCV MCH MCHC RDW Plt Count MPV Neut % (Auto) Lymph % (Auto) [place] % (Auto) Eos % (Auto) Baso % (Auto) Absolute Neuts (auto) Absolute Lymphs (auto) Absolute Monos (auto) Absolute Eos (auto) Absolute Basos (auto) Absolute Nucleated RBC Nucleated RBC % APTT 62.4 H 63.2 H Sodium Potassium Chloride Carbon Dioxide Anion Gap BUN Creatinine Est GFR ( Amer) Est GFR (Non-Af Amer) BUN/Creatinine Ratio Glucose Calcium Magnesium I/R: 87 y o f with b/l PE, DVT h/o GI bleed Pt on heparin drip, will be receiving Coumadin tonight Hemodynamically stable No episodes of bleeding Has been on RA c/w current management
--- NOTE | 2017-07-05 20:27 | PN ---
Hospitalist Progress Note Date of Service: 07/05/17 Pt seen and examined. Meds and labs reviewed. No O/N issues. ROS: Denied VERGARA/dizziness, F/C, N/V, CP, SOB, increased cough, sputum production , abd pain, diarrhea, constipation, dysuria, myalgias, arthralgias, throat pain , and new skin lesions. The rest of the 14 point ROS are unremarkable. PHYSICAL EXAM: GEN APPEARANCE: Awake, not in acute distress HEENT: NC/AT, PERRLA, moist oral mucosa, (-) throat erythema NECK: Soft, supple, (-) cervical LAD, (-)JVD HEART: S1S2 WNL, RRR, No MRG CHEST: CTA, BL, GAE, No W/R/R ABD: Soft, ND/NT, NABS 4x Q EXT: No C/C/BLLE (+)1 SKIN: Warm to touch PSYCH: No active psychosis, hallucinations, depression, SI/HI ASSESSMENT AND PLAN: #Multiple PEs: -H&H stable with no clinical signs of bleeding -Will start Coumadin tonight at 6 mg; for daily INRs -Discussed risks and benefits of anticoagulation, DVT/[place] filter, and PRBC transfusion with pt and family -Pt chose to decline [place] filter placement at this time expressing that she is a [employer] and that she is ready to see her loved ones. However, will readdress its importance if she re-bleeds -Was also informed that Dr. Pak ([id number]) will be in the facility tomorrow for [place] filter if family and pt changes their mind #Symptomatic anemia likely due to large gastric ulcer with stigmata of bleeding: - anemia has stabilized, and there is no further melena. - Has received total 9 PRBCs - H&H stable -D/C Pantoprazole gtt and place on IV BID Pantoprazole boluses due to slight BLLE edema seen on exam today #GI bleed - 1st EGD showed large gastric ulcer with stigmata of bleeding. - Repeat EGD 06/28/17 showed no active source of bleeding - Continue to monitor in ICU -As above #TIA, history of: -Continue to hold ASA given above -Unclear why pt not on statins; will check fasting lipid levels in AM #DVT prophylaxis - Will be placed on heparin gtt #Disposition: -Possible D/C home in when pts INR is therapeutic; given high risk of bleeding given history will continue to monitor in ICU as INR becomes therapeutic
[2017-07-05] MEDS: Pantoprazole IV* 40 MG IV SCH (22:18)
[2017-07-06 05:19] LABS: ABS Basophils 0.1 10^3/ul (0-0.2); ABS Eosinophils 0.2 10^3/ul (0-0.6); ABS Lymphocytes 1.1 10^3/ul (1.0-4.8); ABS Monocytes 0.7 10^3/ul (0-0.8); ABS Neutrophils 5.3 10^3/ul (1.5-7.7); ABS Nucleated RBC 0 10^3/ul; Eosinophil % 2.9 % (0-6); Hematocrit 30 % (35-47); Hemoglobin 10.1 g/dl (12.0-16.0); Lymphocyte % 14.7 % (25-47); Mean Corpuscular HGB Conc 34 g/dl (31-36); Mean Corpuscular Hemoglobin 30 pg (27-31); Mean Corpuscular Volume 88 fL (80-97); Mean Platelet Volume 7.2 um3 (7.4-10.4); Nucleated Red Blood Cells % 0; Platelet Count 227 10^3/ul (150-450); Red Cell Distribution Width 16 % (10.5-15); White Blood Count 7.4 10^3/ul (3.5-10.8)
[2017-07-06 05:36] LABS: EGFR Non-African American 107.3 (>60)
[2017-07-06] MEDS: Heparin DRIP 25,000 UNITS(*) 25,000 UNITS/500 ML BAG IV SCH (08:30)
[2017-07-06] MEDS: Sucralfate TAB* 1 GM PO SCH ×4 (09:13→20:55)
[2017-07-06] MEDS: Pantoprazole IV* 40 MG IV SCH ×2 (09:13→20:55)
[2017-07-06] MEDS: Potassium Chlor TAB* 10 MEQ TAB.ER PO SCH (09:13)
[2017-07-06] MEDS: PTO:Multivitamins/Minerals AREDS2 cap PO SCH ×2 (09:14→20:55)
[2017-07-06] MEDS ORDERED: hydrOXYzine HCL TAB* 10 MG PO PRN (14:26)
[2017-07-06] MEDS: Warfarin TAB(*) 6 MG PO SCH (17:51)
--- NOTE | 2017-07-06 19:54 | PN ---
Hospitalist Progress Note Date of Service: 07/06/17 Pt seen and examined. Meds and labs reviewed. No O/N issues ROS: Denied VERGARA/dizziness, F/C, N/V, CP, SOB, increased cough, sputum production , abd pain, diarrhea, constipation, dysuria, myalgias, arthralgias, throat pain , and new skin lesions. The rest of the 14 point ROS are unremarkable. PHYSICAL EXAM: GEN APPEARANCE: Awake, not in acute distress HEENT: NC/AT, PERRLA, moist oral mucosa, (-) throat erythema NECK: Soft, supple, (-) cervical LAD, (-)JVD HEART: S1S2 WNL, RRR, No MRG CHEST: CTA, BL, GAE, No W/R/R ABD: Soft, ND/NT, NABS 4x Q EXT: No C/C/E SKIN: Warm to touch PSYCH: No active psychosis, hallucinations, depression, SI/HI ASSESSMENT AND PLAN: #Multiple PEs: -H&H stable with no clinical signs of bleeding -Started Coumadin yesterday at 6 mg; awaiting INR value -Discussed risks and benefits of anticoagulation, DVT/[place] filter, and PRBC transfusion with pt and family -Pt chose to decline [place] filter placement at this time expressing that she is a Confucianism and that she is ready to see her loved ones. However, will readdress its importance if she re-bleeds -Was also informed that Dr. Pak ([id number]) will be in the facility tomorrow for Ismael filter if family and pt changes their mind #Symptomatic anemia likely due to large gastric ulcer with stigmata of bleeding: - anemia has stabilized, and there is no further melena. - Has received total 9 PRBCs - H&H stable -D/C Pantoprazole gtt and place on IV BID Pantoprazole boluses due to slight BLLE edema seen on exam today #GI bleed - 1st EGD showed large gastric ulcer with stigmata of bleeding. - Repeat EGD 06/28/17 showed no active source of bleeding - Continue to monitor in ICU -As above -Continue PPI IV BID #TIA, history of: -Continue to hold ASA given above -Unclear why pt not on statins; will check fasting lipid levels in AM #DVT prophylaxis - Will be placed on heparin gtt #Disposition: -Given bed need in ICU, will transfer pt to telemetry given pt has been stable
[2017-07-06] MEDS: Pantoprazole IV* 80 MG in NS 0.9% 250 ML* 250 ML IVPB SCH (22:11)
[2017-07-06] MEDS: Acetaminophen TAB* 325 MG PO PRN (22:56)
[2017-07-06] MEDS: CMCS:Melatonin (NF) 3 MG TAB PO PRN (22:57)
[2017-07-07 06:12] LABS: ABS Basophils 0.1 10^3/ul (0-0.2); ABS Eosinophils 0.2 10^3/ul (0-0.6); ABS Lymphocytes 1.3 10^3/ul (1.0-4.8); ABS Monocytes 0.6 10^3/ul (0-0.8); ABS Neutrophils 3.6 10^3/ul (1.5-7.7); ABS Nucleated RBC 0 10^3/ul; Eosinophil % 2.8 % (0-6); Hematocrit 28 % (35-47); Hemoglobin 9.5 g/dl (12.0-16.0); Lymphocyte % 22.4 % (25-47); Mean Corpuscular HGB Conc 34 g/dl (31-36); Mean Corpuscular Hemoglobin 30 pg (27-31); Mean Corpuscular Volume 88 fL (80-97); Mean Platelet Volume 7.2 um3 (7.4-10.4); Nucleated Red Blood Cells % 0.1; Platelet Count 234 10^3/ul (150-450); Red Blood Count 3.16 10^6/ul (4.0-5.4); Red Cell Distribution Width 16 % (10.5-15); White Blood Count 5.7 10^3/ul (3.5-10.8)
[2017-07-07 06:21] LABS: INR 1.38 (0.77-1.02)
[2017-07-07] MEDS: PTO:Multivitamins/Minerals AREDS2 cap PO SCH ×3 (07:18→20:55)
[2017-07-07] MEDS: Sucralfate TAB* 1 GM PO SCH ×4 (07:18→20:55)
[2017-07-07] MEDS: Potassium Chlor TAB* 10 MEQ TAB.ER PO SCH (07:18)
[2017-07-07] MEDS: Pantoprazole IV* 40 MG IV SCH ×2 (07:26→20:55)
[2017-07-07] MEDS: Warfarin TAB(*) 6 MG PO SCH (16:11)
[2017-07-07] MEDS: Heparin DRIP 25,000 UNITS(*) 25,000 UNITS/500 ML BAG IV SCH (16:12)
--- NOTE | 2017-07-07 19:47 | PN ---
Hospitalist Progress Note Date of Service: 07/07/17 Pt seen and examined. Meds and labs reviewed. ROS: Denied VERGARA/dizziness, F/C, N/V, CP, SOB, increased cough, sputum production , abd pain, diarrhea, constipation, dysuria, myalgias, arthralgias, throat pain , and new skin lesions. The rest of the 14 point ROS are unremarkable. PHYSICAL EXAM: GEN APPEARANCE: Awake, not in acute distress HEENT: NC/AT, PERRLA, moist oral mucosa, (-) throat erythema NECK: Soft, supple, (-) cervical LAD, (-)JVD HEART: S1S2 WNL, RRR, No MRG CHEST: CTA, BL, GAE, No W/R/R ABD: Soft, ND/NT, NABS 4x Q EXT: No C/C/E SKIN: Warm to touch PSYCH: No active psychosis, hallucinations, depression, SI/HI ASSESSMENT AND PLAN: #Multiple PEs: -H&H stable with no clinical signs of bleeding -Continue to follow INR ujntil therapeutic -Discussed risks and benefits of anticoagulation, DVT/[place] filter, and PRBC transfusion with pt and family -Pt chose to decline Ismael filter placement at this time expressing that she is a Muslim and that she is ready to see her loved ones. However, will readdress its importance if she re-bleeds -Was also informed that Dr. Pak ([id number]) will be in the facility tomorrow for [place] filter if family and pt changes their mind #Symptomatic anemia likely due to large gastric ulcer with stigmata of bleeding: - anemia has stabilized, and there is no further melena. - Has received total 9 PRBCs - H&H stable -Continue PPI IV BID #GI bleed - 1st EGD showed large gastric ulcer with stigmata of bleeding. - Repeat EGD 06/28/17 showed no active source of bleeding - Continue to monitor in ICU -As above -Continue PPI IV BID #TIA, history of: -Continue to hold ASA given above -Unclear why pt not on statins; will check fasting lipid levels in AM #DVT prophylaxis - Will be placed on heparin gtt #Disposition: -Continue to follow INR
[2017-07-07] MEDS: CMCS:Melatonin (NF) 3 MG TAB PO PRN (23:19)
[2017-07-07] MEDS: Acetaminophen TAB* 325 MG PO PRN (23:23)
[2017-07-08 05:49] LABS: ABS Basophils 0.1 10^3/ul (0-0.2); ABS Eosinophils 0.1 10^3/ul (0-0.6); ABS Lymphocytes 1.1 10^3/ul (1.0-4.8); ABS Monocytes 0.5 10^3/ul (0-0.8); ABS Neutrophils 2.9 10^3/ul (1.5-7.7); ABS Nucleated RBC 0 10^3/ul; Hematocrit 28 % (35-47); Hemoglobin 9.8 g/dl (12.0-16.0); Lymphocyte % 23.8 % (25-47); Mean Corpuscular HGB Conc 35 g/dl (31-36); Mean Corpuscular Hemoglobin 31 pg (27-31); Mean Corpuscular Volume 88 fL (80-97); Mean Platelet Volume 7.2 um3 (7.4-10.4); Nucleated Red Blood Cells % 0.1; Platelet Count 247 10^3/ul (150-450); Red Blood Count 3.18 10^6/ul (4.0-5.4); Red Cell Distribution Width 16 % (10.5-15); White Blood Count 4.7 10^3/ul (3.5-10.8)
[2017-07-08 05:54] LABS: INR 2.13 (0.77-1.02)
[2017-07-08] MEDS ORDERED: Docusate CAP* 100 MG PO PRN (08:07)
[2017-07-08] MEDS ORDERED: Senna TAB PO PRN (08:07)
--- NOTE | 2017-07-08 08:07 | PN ---
Subjective Date of Service: 07/08/17 Interval History: No overnight events. Patient states she has not had a BM since she's been here (06/26) No lightheadedness or dizziness. No CP or SOB. Lab draw in left arm caused large hematoma. Denies pain at the site. Concerned about ambulating at home and having to make breakfast and lunch. Dinner is provided to her Family History: Unchanged from Admission Social History: Unchanged from Admission Past Medical History: Unchanged from Admission Objective Active Medications: Acetaminophen (Tylenol Tab*) 650 mg PO Q6H PRN PRN Reason: pain/fever Last Admin: 07/07/17 23:23 Dose: 650 mg Hydroxyzine HCl (Atarax Tab*) 10 mg PO Q6H PRN PRN Reason: Pruritus and rash Last Admin: 07/06/17 17:56 Dose: 10 mg Melatonin (Melatonin (Nf)) 3 mg PO BEDTIME PRN; Protocol PRN Reason: Sleep Last Admin: 07/07/17 23:19 Dose: 3 mg Multivitamins/Minerals (Preservision Areds 2) 1 cap PO BID [facility] Last Admin: 07/07/17 20:55 Dose: 1 cap Pantoprazole Sodium (Protonix Iv*) 40 mg IV BID [facility] Last Admin: 07/07/17 20:55 Dose: 40 mg Pharmacy Profile Note (Coumadin Daily Reminder*) 1 note FOLLOW UP 1700 [facility] Last Admin: 07/07/17 16:14 Dose: 1 note Prochlorperazine Edisylate (Compazine Inj*) 5 mg IV Q6H PRN PRN Reason: NAUSEA/VOMITING Last Admin: 06/28/17 00:39 Dose: 5 mg Sucralfate (Carafate*) 1 gm PO QID [facility] Last Admin: 07/07/17 20:55 Dose: 1 gm Warfarin Sodium (Coumadin Tab(*)) 6 mg PO DAILY@1700 [facility] PRN Reason: Protocol Last Admin: 07/07/17 16:11 Dose: 6 mg Vital Signs - 8 hr 07/08/17 07/08/17 07/08/17 03:26 07:21 07:43 Temperature 96.9 F 97.3 F Pulse Rate 59 62 Respiratory 16 18 16 Rate Blood Pressure 120/56 143/60 (mmHg) O2 Sat by Pulse 99 100 Oximetry Oxygen Devices in Use Now: None Appearance: NAD Eyes: PERRLA Ears/Nose/Mouth/Throat: Mucous Membranes Moist Neck: Trachea Midline Respiratory: Symmetrical Chest Expansion and Respiratory Effort, Clear to Auscultation Cardiovascular: RRR, - - soft murmur Abdominal: NL Sounds; No Tenderness; No Distention Extremities: - - +2 pretibial edema Skin: - - moderate sized superficial hematoma over left antecubital region Neurological: Alert and Oriented x 3, NL Muscle Strength and Tone Result Diagrams: 07/08/17 05:28 07/08/17 05:28 Additional Lab and Data: Lab Results Microbiology and Other Data: Microbiology 06/28/17 00:50 Nasal Nasal Screen MRSA (PCR)([facility]) - Final Mrsa Not Detected 06/27/17 07:49 Gastric Antrum CLOtest - Final 06/26/17 11:57 Stool Stool Occult Blood (VITA) - Final Assess/Plan/Problems-Billing Assessment: Mrs. Carroll is an 87yo F with PMH of HTN, TIA 03/24, who presented to ED with c/o fatigue, weakness, found to have severe anemia. EGD showed gastric ulcer, s/ p several transfusions, also with multiple Pulmonary emboli, now on anticoagulation - Patient Problems (1) GI bleed Current Visit: Yes Status: Acute Priority: Medium Code(s): K92.2 - GASTROINTESTINAL HEMORRHAGE, UNSPECIFIED SNOMED Code(s): 52726602 Comment: - 1st EGD showed large gastric ulcer with stigmata of bleeding. - Repeat EGD 06/28/17 showed no active source of bleeding Patient received a total of 9 units of PRBC's - last blood on 07/03. Last BM according to notes is 07/04 - H/H stable since then Plan Change to PO omeprazole BID Discussed Filter placement as above Continue sucrafate Advance diet to regular diet (2) Pulmonary emboli Current Visit: Yes Status: Acute Code(s): I26.99 - OTHER PULMONARY EMBOLISM WITHOUT ACUTE COR PULMONALE SNOMED Code(s): 89562290 Comment: A. Multiple PE's noted on 07/03 - Patient was on heparin drip and coumadin Coumadin now therapuetic. She is on RA with no respiratory or cardiac complaints. Discussed option of filter - appears that intervention radiology and surgery are both involved. NO evidence of GI bleed currently Plan Patient seems agreeable with filter - recommend pursuing this. Will attempt to follow up with daugther as well D/C heparin Continue Coumadin - nutrition consult today Will switch to Omeprazole PO BID (3) DVT prophylaxis Current Visit: Yes Status: Acute Priority: Low Code(s): [id number] - SNOMED Code(s): 463358502 Comment: -Therapuetic on coumadin (4) TIA (transient ischemic attack) Current Visit: No Status: Acute Comment: A/P - ASA on hold in setting of recent GIB (5) Hypertension Current Visit: No Status: Chronic Code(s): I10 - ESSENTIAL (PRIMARY) HYPERTENSION SNOMED Code(s): 23691638 Comment: A/P controlled - not on medications (6) DNR (do not resuscitate) Current Visit: Yes Status: Acute Status and Disposition: Inpatient - prolonged hospitalization - needs filter readdressed prior to d/c. PT eval pending - may need acute rehab Diet advanced
[2017-07-08] MEDS: PTO:Multivitamins/Minerals AREDS2 cap PO SCH ×2 (08:18→20:30)
[2017-07-08] MEDS: Omeprazole CAP* 20 MG PO SCH ×2 (08:19→20:30)
[2017-07-08] MEDS: Sucralfate TAB* 1 GM PO SCH ×4 (08:19→20:30)
[2017-07-08] MEDS: Warfarin TAB(*) 6 MG PO SCH (16:20)
[2017-07-08] MEDS: Acetaminophen TAB* 325 MG PO PRN (22:22)
[2017-07-08] MEDS: CMCS:Melatonin (NF) 3 MG TAB PO PRN (22:23)
[2017-07-09 06:30] LABS: ABS Basophils 0.1 10^3/ul (0-0.2); ABS Eosinophils 0.1 10^3/ul (0-0.6); ABS Lymphocytes 0.9 10^3/ul (1.0-4.8); ABS Monocytes 0.5 10^3/ul (0-0.8); ABS Neutrophils 2.8 10^3/ul (1.5-7.7); ABS Nucleated RBC 0 10^3/ul; Eosinophil % 2.5 % (0-6); Hematocrit 29 % (35-47); Hemoglobin 9.8 g/dl (12.0-16.0); Lymphocyte % 21.2 % (25-47); Mean Corpuscular HGB Conc 34 g/dl (31-36); Mean Corpuscular Hemoglobin 30 pg (27-31); Mean Corpuscular Volume 88 fL (80-97); Nucleated Red Blood Cells % 0; Platelet Count 233 10^3/ul (150-450); Red Blood Count 3.29 10^6/ul (4.0-5.4); Red Cell Distribution Width 17 % (10.5-15); White Blood Count 4.4 10^3/ul (3.5-10.8)
[2017-07-09 06:37] LABS: INR 3.67 (0.77-1.02)
[2017-07-09] MEDS: PTO:Multivitamins/Minerals AREDS2 cap PO SCH (08:12)
[2017-07-09] MEDS: Sucralfate TAB* 1 GM PO SCH ×3 (08:12→16:47)
[2017-07-09] MEDS: Omeprazole CAP* 20 MG PO SCH (08:12)
[2017-07-09 16:48] VITALS: BP 143/69
--- NOTE | 2017-07-10 14:46 | DS ---
DISCHARGE SUMMARY: DATE OF ADMISSION: 06/26/17 DATE OF DISCHARGE: 07/09/17 ADMITTING PROVIDER: Jaqueline Yepez MD. ATTENDING PHYSICIAN: Radames Cummins MD. CONSULTING PROVIDERS: Dr. Quesada, Gastroenterology, and Dr. Jarrett of Pulmonology. PRIMARY CARE PHYSICIAN: Dr. Sosa. CHIEF COMPLAINT: Weakness. PRINCIPAL DIAGNOSES: Upper GI bleed secondary to gastric ulcer in the setting of NSAID use; bilateral pulmonary embolism and left lower extremity DVT; symptomatic anemia requiring a total 9 units packed red blood cell transfusion. HISTORY OF PRESENT ILLNESS: Ms. Carroll is an 87-year-old female with past medical history of hypertension, TIA, resident of [facility] who presented with complaints of generalized weakness, body shaking, inability to stand from toilet. Please see H and P of Dr. Jaqueline Yepez for full details. She was found to be anemic with hemoglobin of 7.1, previously had been 12.5 in March 2016. She had taken meloxicam and Advil PM daily. Dr. 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 Two thirds of circumference with evidence of stigmata of bleeding. 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 She was started on double dose of PPI. Aspirin was held. The patient had a CAT call for syncope on 06/27/17 and got additional units of blood. Her low hemoglobin was 6.1 that night with associated hematocrit of 18. The patient will receive a total 9 units of blood throughout the admission. She had a second EGD with Dr. Campo the next day, which showed, again the gastric ulcer and a large bezoar. There was no to perform any active therapy and consideration for nuclear medicine bleeding study was recommended, and if positive, transfer to a higher level of care for IR embolization. The nuclear bleeding study showed very mild uptake in the small bowel along the left upper quadrant and left wily abdomen, but a focal site of bleeding could not be determined. The overall apparent site of bleeding was thought to be gastroduodenal. After further conservation with the patient and family, they decided to stay at this facility and they would not want aggressive measures. Course was further complicated by acute an episode of shortness of breath and hypoxia and CT angiogram of the chest was performed on 07/03/17, which showed multiple segmental and lobar filling defects consistent with multiple pulmonary emboli. A venous Doppler study bilaterally demonstrated DVT, probably within the peroneal veins in the left calf as well as one of the paired posterior tibial veins in the left calf. She was again transferred to the ICU for a second time for closer monitoring. Dr. Jarrett of Pulmonology and Lucio Grossman, physician perioperative assistant with Surgery were consulted. The patient was started on heparin drip and did not show evidence of melena or hematochezia. Hemoglobin and hematocrit were stable. The patient discussed was with hospitalist, Dr. Shipley, along with family and decision at that time was made not to pursue IVC filter. At this juncture, the patient continued to be stable and was started on Coumadin on 07/05/17 at 6 mg each night. She has now received 4 doses of this and INR on the day prior to discharge was 2.13 and the day of discharge was 3.67. She was seen by physical therapy who recommended back home at [place] with VNS and physical therapy there. Her Coumadin is being held and decreased and she is going to need a repeat INR check on 07/12/17 with close followup with Dr. Sosa who has been seeing the patient frequently in the hospital. Of note the patient seemed to be more open minded about getting the IVC filter. On day of discharge, Dr. Quesada's last documented note indicated that he would be against placing a filter given her stability on the anticoagulation without evidence of rebleed in the setting of cessation of her NSAIDs. Of course, she is at moderate risk in general and this decision will need to be reevaluated if the patient were to rebleed. DISCHARGE MEDICATIONS: Include: 1. Tylenol 650 mg p.o. q. 6 hours p.r.n. (new). 2. Docusate 100 mg p.o. b.i.d. (new). 3. Melatonin 2 mg p.o. at bedtime p.r.n. (new). 4. Omeprazole 20 mg p.o. b.i.d. (new). 5. Senna 2 tablets p.o. at bedtime p.r.n. (new). 6. Carafate 1 g p.o. 4 times a day (new). 7. PreserVision AREDS 2 softgels p.o. b.i.d. (old). 8. Warfarin 3 mg nightly to be started on the evening of 07/11/17, two days after discharge. DISCHARGE DIET: Heart healthy. ACTIVITY LEVEL: No restrictions. Will need physical therapy at [facility]. FOLLOW UP: The patient will need to follow with Dr. Sosa in 2 to 4 days of discharge. She will need a repeat CBC and INR on 07/12/17, that has been ordered. Of note, her INR was supratherapeutic on discharge at 3.67, jumped up from 2.13 and her Coumadin was halved and she was told to skip 2 doses. This will need close monitoring by Dr. Sosa. Alternatively, if the patient cannot be seen by Dr. Sosa in a timely manner, refer the patient to the [facility]. TIME SPENT: Time spent on discharge 45 minutes. [id number]/[facility] #: [id number] JUN
== END 2017-07-09 19:30 | disposition home health service (06) | DRG 377 ==
LOC: ED 10:13 → MEDTELE 15:27 → ICU 06-28 00:03 → MEDTELE 07-01 10:34 → ICU 07-03 15:35 → MEDTELE 07-06 21:34 → MED 07-09 11:42
PROVIDERS: ADMIT Internal Medicine; ATTEND Internal Medicine
PROC: 30233N1 Transfusion of Nonautologous Red Blood Cells into Peripheral Vein, Percutaneous Approach (ICD-10-PCS; 2017-06-26)
PROC: 0DB68ZX Excision of Stomach, Via Natural or Artificial Opening Endoscopic, Diagnostic (ICD-10-PCS; principal; 2017-06-27)
PROC: 0DJ08ZZ Inspection of Upper Intestinal Tract, Via Natural or Artificial Opening Endoscopic (ICD-10-PCS; 2017-06-28)
DX: K25.4 Chronic or unspecified gastric ulcer with hemorrhage (principal); I26.99 Other pulmonary embolism without acute cor pulmonale; D62 Acute posthemorrhagic anemia; I82.890 Acute embolism and thrombosis of other specified veins; I10 Essential (primary) hypertension; M19.042 Primary osteoarthritis, left hand; M19.041 Primary osteoarthritis, right hand; Z66 Do not resuscitate; E87.70 Fluid overload, unspecified; E87.6 Hypokalemia; K44.9 Diaphragmatic hernia without obstruction or gangrene; T39.395A Adverse effect of other nonsteroidal anti-inflammatory drugs [NSAID], initial encounter; Y92.009 Unspecified place in unspecified non-institutional (private) residence as the place of occurrence of the external cause; Z98.42 Cataract extraction status, left eye; Z98.41 Cataract extraction status, right eye; Z85.828 Personal history of other malignant neoplasm of skin; Z86.73 Personal history of transient ischemic attack (TIA), and cerebral infarction without residual deficits; Z88.1 Allergy status to other antibiotic agents; Z88.5 Allergy status to narcotic agent; Z88.8 Allergy status to other drugs, medicaments and biological substances; Z82.49 Family history of ischemic heart disease and other diseases of the circulatory system; Z80.51 Family history of malignant neoplasm of kidney; Z91.81 History of falling; Z80.0 Family history of malignant neoplasm of digestive organs; Z79.01 Long term (current) use of anticoagulants
CPT/HCPCS: 36415; 71046; 71275; 78278; 80048; 80053; 80061; 82270; 82310; 82550; 82565; 82607; 82728; 82746; 83540; 83550; 83605; 83735; 83880; 84100; 84443; 84484; 84520; 85014; 85018; 85025; 85027; 85610; 85730; 86140; 86850; 86900; 86901; 86922; 87077; 87641; 93005; 93970; 99156; 99157; 99283; A9270-GY; A9512; A9538; G8978-GP-CI; G8978-GP-CJ; G8978-GP-CK; G8979-GP-CI; G8980-GP-CI; J0780; J1940; J2250; J3010; J3475; J3480; P9040

== ENCOUNTER 2022-03-19 13:51 | Inpatient (IN) ==
[2022-03-19] MEDS ORDERED: Lactated Ringers 1000 ml BAG 1,000 ML IV ONE (14:01)
[2022-03-19 14:29] LABS: ABS Basophils 0.1 10^3/ul (0-0.2); ABS Eosinophils 0.1 10^3/ul (0-0.6); ABS Lymphocytes 1.2 10^3/ul (1.0-4.8); ABS Monocytes 0.5 10^3/ul (0-0.8); ABS Neutrophils 4.6 10^3/ul (1.5-7.7); Eosinophil % 1.9 %; Hematocrit 33 % (35-47); Hemoglobin 10.9 g/dL (12.0-16.0); Lymphocyte % 18.7 %; Mean Corpuscular HGB Conc 33 g/dL (31-36); Mean Corpuscular Hemoglobin 31 pg (27-31); Mean Corpuscular Volume 95 fL (80-97); Mean Platelet Volume 7.9 fL (7.4-10.4); Platelet Count 205 10^3/uL (150-450); Red Blood Count 3.51 10^6 /uL (3.70-4.87); Red Cell Distribution Width 15 % (10-15); White Blood Count 6.6 10^3/uL (3.5-10.8)
[2022-03-19 14:35] LABS: INR 1.09 (0.88-1.18)
[2022-03-19 14:52] LABS: High Sens Troponin Baseline < 3 pg/mL (<15)
[2022-03-19 15:01] LABS: ALT 26 U/L (7-52); AST 32 U/L (13-39); Albumin 3.4 g/dL (3.2-5.2); Albumin/Globulin Ratio 1.4 (1-3); Alkaline Phosphatase 103 U/L (35-149); Anion Gap 4 mmol/L (2-11); Blood Urea Nitrogen 19 mg/dL (6-24); CO2 Carbon Dioxide 27 mmol/L (22-32); Calcium 8.7 mg/dL (8.6-10.3); Chloride 102 mmol/L (101-111); Creatinine, Serum 0.96 mg/dL (0.51-0.95); Globulin 2.5 g/dL (2-4); Glucose 134 mg/dL (70-100); Potassium 4.5 mmol/L (3.5-5.0); Sodium 133 mmol/L (135-145); Total Protein 5.9 g/dL (6.4-8.9); eGFR CKD-EPI 56.6 (>60)
[2022-03-19 15:12] LABS: Venous Bicarbonate HCO3 21.7 mmol/L (24-28)
[2022-03-19] MEDS ORDERED: Iodixanol (CONTRAST) 320 MG/ML 100 ML SDV IV ONE (15:17)
[2022-03-19] MEDS ORDERED: Norepinephrine 16MCG/ML BAGD5W 4,000 MCG/250 ML BAG IV ONE (15:45)
[2022-03-19] MEDS ORDERED: Cefepime 2 GM in Dextrose 2 GM/50 ML BAG IV ONE (15:49)
[2022-03-19 15:55] LABS: High Sensitivity Troponin 1 Hr 8 pg/mL (<15)
[2022-03-19] MEDS ORDERED: Norepinephrine 16MCG/ML BAGD5W 4,000 MCG/250 ML BAG IV SCH ×3 (16:00→19:00)
[2022-03-19 16:33] LABS: Urine Appearance Clear; Urine Bilirubin Negative (Negative); Urine Blood Negative (Negative); Urine Color Yellow; Urine Glucose Negative (Negative); Urine Ketones Negative (Negative); Urine Nitrite Negative (Negative); Urine Protein 2+(100 mg/dL) (Negative); Urine Specific Gravity 1.013 (1.002-1.030); Urine Urobilinogen Negative (Negative)
[2022-03-19 16:38] LABS: Urine Bacteria 1+ (Absent); Urine Red Blood Cell Trace(0-2/hpf) (Absent); Urine Squamous Epithelial Cell Present (Absent); Urine White Blood Cell Trace(0-5/hpf) (Absent)
[2022-03-19] MEDS ORDERED: Vancomycin 1,000 MG in NS 0.9% 250 ml 250 ML IVPB ONE (18:37)
[2022-03-19] MEDS ORDERED: Acetaminophen IV 1 GM/100ML 1,000 MG/100 ML BAG IV PRN (18:37)
[2022-03-19] MEDS ORDERED: Heparin DRIP 25,000 UNITS BAG 25,000 UNITS/500 ML BAG IV SCH (18:45)
[2022-03-19] MEDS ORDERED: Vancomycin per Pharmacy 1 EA NOTE FOLLOW UP SCH (19:00)
[2022-03-19 19:16] LABS: Creatine Kinase 118 U/L (10-223)
[2022-03-19] MEDS ORDERED: Heparin 5000 UNITS/ML 1 mL VIAL IV SCH (20:00)
[2022-03-20 06:04] LABS: ABS Lymphocytes 0.9 10^3/ul (1.0-4.8); ABS Monocytes 0.8 10^3/ul (0-0.8); ABS Neutrophils 9.6 10^3/ul (1.5-7.7); Eosinophil % 0.1 %; Hematocrit 31 % (35-47); Hemoglobin 10.2 g/dL (12.0-16.0); Lymphocyte % 7.9 %; Mean Corpuscular HGB Conc 34 g/dL (31-36); Mean Corpuscular Hemoglobin 32 pg (27-31); Mean Corpuscular Volume 94 fL (80-97); Mean Platelet Volume 8.3 fL (7.4-10.4); Platelet Count 176 10^3/uL (150-450); Red Blood Count 3.25 10^6 /uL (3.70-4.87); Red Cell Distribution Width 15 % (10-15); White Blood Count 11.4 10^3/uL (3.5-10.8)
[2022-03-20 06:06] LABS: INR 1.15 (0.88-1.18)
[2022-03-20] MEDS: cefTRIAXone 1 gm/50 mL D5W 1 GM/50 ML BAG IV SCH (06:14)
[2022-03-20 06:36] LABS: Calcium 8.4 mg/dL (8.6-10.3); Creatinine, Serum 0.84 mg/dL (0.51-0.95); Phosphorus 3.7 mg/dL (2.5-5.0); Potassium 4.7 mmol/L (3.5-5.0); eGFR CKD-EPI 66.4 (>60)
[2022-03-20] MEDS ORDERED: Digoxin IV 0.5 MG/2 ML AMP (0.25 MG/ML) IV SLOW PU ONE (10:15)
[2022-03-20] MEDS ORDERED: Lactated Ringers 1000 ml BAG 1,000 ML IV SCH (17:00)
[2022-03-20] MEDS ORDERED: Senna TAB 8.6 mg TAB PO SCH (21:00)
[2022-03-20] MEDS ORDERED: Vancomycin 1000 MG in NS 0.9% 250 ML IVPB SCH (21:00)
[2022-03-21] MEDS: cefTRIAXone 1 gm/50 mL D5W 1 GM/50 ML BAG IV SCH (05:40)
[2022-03-21 05:43] LABS: ABS Lymphocytes 0.9 10^3/ul (1.0-4.8); ABS Monocytes 0.7 10^3/ul (0-0.8); ABS Neutrophils 5.7 10^3/ul (1.5-7.7); Eosinophil % 0.6 %; Hematocrit 29 % (35-47); Hemoglobin 9.3 g/dL (12.0-16.0); Lymphocyte % 12.1 %; Mean Corpuscular HGB Conc 33 g/dL (31-36); Mean Corpuscular Hemoglobin 31 pg (27-31); Mean Corpuscular Volume 95 fL (80-97); Mean Platelet Volume 7.7 fL (7.4-10.4); Platelet Count 156 10^3/uL (150-450); Red Blood Count 3.01 10^6 /uL (3.70-4.87); Red Cell Distribution Width 14 % (10-15); White Blood Count 7.3 10^3/uL (3.5-10.8)
[2022-03-21 05:48] LABS: INR 1.24 (0.88-1.18)
[2022-03-21 13:26] VITALS: BP 175/75
[2022-03-22] MEDS ORDERED: Vancomycin Trough Check NOTE FOLLOW UP ONE (20:30)
== END 2022-03-21 14:50 | DRG 309 ==
LOC: ED 13:51 → EDHOLD 18:49 → ICU 20:34
PROVIDERS: ADMIT Internal Medicine Critical Care Medicine; ATTEND Nurse Practitioner Family